=== PATIENT | female | born 1940 | race Caucasian/White ===

== ENCOUNTER 2017-03-04 15:38 | Inpatient (IN) | payer OTHER ==
[~2017-03-04] VITALS: Ht 152.4 cm; Wt 60.5 kg
[~2017-03-04 15:38] MED LIST: ACT/15 PO; AMIT10TA6 PO; AMLO5TAB4 PO; ARC10 PO; ASPEC81 PO; ATV5 PO; BROMFENAC 0.09% OPR; CARV3.12 PO; CLC100 PO; CLX20 PO; FSM70 PO; LISI-725 PO; NMN10 PO; OXYC-57 PO; POTA20TA16 PO; PRED1SUS3 OPR
[2017-03-04] MEDS ORDERED: MoRPHine SULFATE 4 MG/ML 1 ML CARP\\VIAL IV STA ×3 (16:05→19:49)
[2017-03-04] MEDS ORDERED: SODIUM CHLORIDE 0.9% 500ML 500 ML IV STA (16:05)
[2017-03-04] MEDS ORDERED: ONDANSETRON INJ 2 MG/ML 2 ML VIAL IV STA (16:05)
[2017-03-04] MEDS ORDERED: OPTIRAY 320 IV PRN (16:15)
[2017-03-04 16:48] LABS: BASO % 0.5 %; BASO ABS # 0.04 K/uL (0-0.2); COMPLETE YES; EOS % 3.9 %; HEMATOCRIT 30.6 % (37-47); IG% 0.1 %; LYMPH % 11.7 %; MEAN CELL VOLUME 78.5 fL (80-100); MEAN CORPUSCULAR HEMOGLOBIN 23.3 pg (25-34); MEAN CORPUSCULAR HGB CONC 29.7 g/dl (32-36); MEAN PLATELET VOLUME 10.2 fL (7.4-10.4); MONO % 6.4 %; NEUT % 77.4 %; PLATELET COUNT 225 K/uL (130-400); WHITE BLOOD COUNT 7.67 K/uL (4.8-10.8)
[2017-03-04 17:17] LABS: BUN/CREATININE RATIO 16.6 (10-20); CALCIUM 8.1 mg/dl (8.5-10.1); CREATININE 0.51 mg/dl (0.60-1.20); POTASSIUM 4.2 mmol/L (3.5-5.1)
--- NOTE | 2017-03-04 17:42 | DIAGNOSTIC IMAGING REPORT ---
RIGHT HUMERUS MIN 2 VIEWS ROUTINE CLINICAL HISTORY: Right arm pain.. Fall. COMPARISON STUDY: None. FINDINGS: ] Right humeral neck fracture which appears to extend to the greater tuberosity. There is mild medial displacement. No definite dislocation on these limited images. Old, healed right-sided rib fractures. Soft tissue swelling at the level of the shoulder. IMPRESSION: Right humeral neck/head fracture as described above. Electronically signed by: Sonny Sotomayor M.D. 03/04/2017 5:41 PM Dictated Date/Time: 03/04/2017 5:39 PM
[2017-03-04] MEDS ORDERED: MoRPHine SULFATE 2 MG/ML CARP ONE (18:06)
[2017-03-04 18:17] LABS: INR 1.8 (0.9-1.1); PROTHROMBIN TIME (PATIENT) 19.4 SECONDS (9.0-12.0)
--- NOTE | 2017-03-04 19:06 | DIAGNOSTIC IMAGING REPORT ---
HEAD CT NONCONTRAST CT DOSE: 720.95 mGycm HISTORY: fall hit head TECHNIQUE: Multiaxial CT images of the head were performed without the use of intravenous contrast. Automated exposure control was utilized for this study. A dose lowering technique was utilized adhering to the principles of ALARA. Comparison: Head CT 10/29/2011. Findings: The paranasal sinuses and mastoid air cells are clear. The calvarium and skull base are intact. Mild right frontal scalp swelling. 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 There is no mass, hematoma, midline shift, acute infarct. The ventricles are normal in size. Stable calcified meningioma within the left parietal vertex. Impression: No acute intracranial abnormality. Mild right frontal scalp swelling. Electronically signed by: Sonny Sotomayor M.D. 03/04/2017 7:02 PM Dictated Date/Time: 03/04/2017 6:59 PM
--- NOTE | 2017-03-04 19:11 | DIAGNOSTIC IMAGING REPORT ---
CT OF THE CERVICAL SPINE CLINICAL HISTORY: Neck pain status post trauma COMPARISON STUDY: 10/29/2011 CT DOSE: 522.30 mGycm TECHNIQUE: CT scan of the cervical spine was performed from the skull base to the thoracic inlet. Images are reviewed in the axial, sagittal, and coronal planes. IV contrast was not administered for this examination. A dose lowering technique was utilized adhering to the principles of ALARA. FINDINGS: There is a 4.5 cm left-sided thoracic inlet mass with secondary tracheal deviation to the right. This likely represents a thyroid mass. This has enlarged when compared the prior study. This nodule has been previously sampled by FNA. The prevertebral soft tissues are normal. No acute fractures or subluxations are visualized. There is an old C7 deformity. There is mild anterolisthesis of C7 on T1. There are multilevel degenerative changes IMPRESSION: 1. No acute fractures or traumatic subluxations 2. 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 Enlarging 4.5 cm left thyroid nodule Electronically signed by: Mejia Shepherd M.D. 03/04/2017 7:09 PM Dictated Date/Time: 03/04/2017 7:04 PM
--- NOTE | 2017-03-04 19:21 | DIAGNOSTIC IMAGING REPORT ---
CT OF THE CHEST WITH IV CONTRAST CLINICAL HISTORY: Left-sided chest pain status post trauma COMPARISON STUDY: 10/29/2011 TECHNIQUE: Following the IV administration of 93 mL of Optiray-320, CT of the thorax was performed from the thoracic inlet to the lung bases. Images are reviewed in the axial, sagittal, and coronal planes. IV contrast was administered without complication. A dose lowering technique was utilized adhering to the principles of ALARA. CT DOSE: 766.92 mGycm FINDINGS: Thyroid: There is a 4.6 cm left-sided thyroid nodule with secondary mass effect on the trachea. Thoracic aorta: There is mild aortic ectasia. Descending thoracic aorta measures 39 mm. Pulmonary vasculature: The pulmonary trunk is normal in caliber. There are no central filling defects identified to suggest pulmonary embolus. Note that this examination was not protocoled for the evaluation of pulmonary emboli. HEART: The heart is enlarged. There is no significant pericardial effusion. There are postsurgical changes involving the aortic valve and root. There is dense calcification within the mitral valve annulus. There are coronary artery calcifications present. Lungs and pleural spaces: There are small bilateral pleural effusions. There are dependent atelectatic changes. There is no pneumothorax. There is a new solid 4 mm right apical pulmonary nodule as visualized in image #[id number]. Mediastinum: There are mildly enlarged mediastinal lymph nodes measuring up to 12 mm in short axis. These nodes have enlarged when compared the prior 2012 study. Nieves: There is no evidence of pathologic hilar adenopathy. Axilla: There is no evidence of pathologic axillary lymphadenopathy. Upper abdomen: The gallbladder surgically absent. There is mild dilatation of the common bile duct which measures 1 cm. There is a fat-containing 32 mm left adrenal mass, likely representing a myelolipoma. This remains unchanged. Skeletal structures: There is an acute fracture of the right humeral head and neck. There is no dislocation. There are multiple old right-sided rib fractures. There is an old right scapular fracture. IMPRESSION: 1. No evidence of acute intrathoracic injury. 2. New solid 4 mm right apical pulmonary nodule 3. Mildly enlarged mediastinal lymph nodes. These nodes were not enlarged in 2012 4. Fat-containing left adrenal mass. This is consistent with a benign myelolipoma or adenoma 5. Enlarging 4.6 cm left thyroid nodule 6. Acute fracture the right humeral head and neck Electronically signed by: Mejia Shepherd M.D. 03/04/2017 7:20 PM Dictated Date/Time: 03/04/2017 7:11 PM
[2017-03-04] MEDS ORDERED: CITA20TA9 PO (20:24)
--- NOTE | 2017-03-04 20:24 | EMERGENCY ROOM VISIT NOTE ---
History Report prepared by Ab: Jesse Galan Under the Supervision of: Dr. Jarrett Vang D.O. First contact with patient: 15:39 Chief Complaint: FALL Stated Complaint: FALL/ RT SHOULDER PAIN History of Present Illness The patient is a 76 year old female who presents to the Emergency Room with complaints of a fall that occurred 2 hours ago. At this time, the patient was walking on the sidewalk by herself, which she normally does. She got distracted by a puppy and tripped on the side walk, falling on her right side. The fall was witnessed by her neighbor who went to get help for her. She is complaining of right shoulder and right rib pain. Her rib pain is exacerbated with deep breathing. She denies any loss of consciousness, headache, chest pain, shortness of breath, abdominal pain, back pain, fatigue, dizziness, weakness, or numbness. She has a past medical history of Alzheimer's disease that is in the early stages. She is currently on Aspirin and Coumadin. Source of History: patient Onset: 2 hours ago Position: other (global) Symptom Intensity: mild Quality: other (Fall) Timing: resolved Modifying Factors (Worsening): breathing Associated Symptoms: + chest pain (right rib pain, no other chest pain), No LOC, No headache, No SOB, No abdominal pain, No back pain, No fatigue, No weakness, No numbness Note: She has some right shoulder pain. Review of Systems See HPI for pertinent positives & negatives. A total of 10 systems reviewed and were otherwise negative. Past Medical & Surgical Medical Problems: (1) Alzheimers disease (2) HTN (hypertension) (3) Osteoporosis Family History Omitted secondary to patient's age. Social History Smoking Status: Never Smoker Smokeless Tobacco Use: No Drug Use: none Occupation Status: retired Current/Historical Medications Scheduled Alendronate (Fosamax *), 70 MG PO WK Amitriptyline Hcl (Elavil), 10 MG PO DHS Amlodipine Besylate (Norvasc), 5 MG PO DAILY Aspirin Enteric Coated (Ecotrin Or Generic *), 81 MG PO DAILY Carvedilol (Coreg), 3.125 MG PO DAILY Citalopram (Celexa *), 20 MG PO DAILY Docusate Sodium (Colace *), 100 MG PO BID Donepezil Hcl (Aricept *), 10 MG PO DAILY Lisinopril (Zestril), 10 MG PO DAILY Lorazepam (Ativan *), 1 MG PO TID PRN Memantine (Namenda), 10 MG PO BID Pioglitazone Hcl (Actos), 15 MG PO DAILY Potassium Ext Rel (Klor-Con), 20 MEQ PO DAILY Prednisolone Acetate (Ophth) (Pred Forte 1% Oph), 1 DROP OPR BID [Bromday 0.09%], 1 DROP OPR DAILY Scheduled PRN Oxycodone/Acetaminophen 5MG/325MG (Percocet 5MG/325MG), 1 TAB PO Q4H PRN Allergies Coded Allergies: No Known Allergies (Unverified , 03/11/12) Physical Exam Vital Signs Date Time Temp Pulse Resp B/P (MAP) Pulse Ox O2 Delivery O2 Flow Rate FiO2 03/04/17 19:51 95 Nasal Cannula 4.0 03/04/17 19:49 74 14 124/60 88 Room Air 03/04/17 19:49 88 Room Air 03/04/17 18:25 95 Nasal Cannula 4.0 03/04/17 18:20 88 Room Air 03/04/17 17:52 72 16 121/59 92 Room Air 03/04/17 15:47 36.5 79 18 133/62 96 03/04/17 15:47 36.5 79 20 133/62 97 Room Air Physical Exam GENERAL: alert, no distress, non-toxic, sitting up in bed, disheveled HEAD: normal cephalic, hematoma to the right forehead. EYE EXAM: normal conjunctiva, PERRL and EOM's grossly intact OROPHARYNX: no exudate, no erythema, lips, buccal mucosa, and tongue normal and mucous membranes are moist NECK: supple, no nuchal rigidity, no adenopathy, non-tender CHEST: stable to compression anteriorly and posteriorly LUNGS: Coarse breath sounds at the bilateral bases. Normal chest wall mechanics HEART: no murmurs, S1 normal and S2 normal CHEST: Tenderness over the right chest wall. ABDOMEN: abdomen soft, non-tender, normo-active bowel sounds, no masses, no rebound or guarding. PELVIS: stable to compression anteriorly and posteriorly BACK: Back is symmetrical on inspection and there is no deformity, no midline tenderness, no CVA tenderness. UPPER EXTREMITIES: Deformity at the right proximal humerus with bruising. Grasp and abduction of digits and well as flexion and extension of the wrist ROM intact at these areas. Radial pulses 2/4. LOWER EXTREMITIES: full active and passive range of motion of all joints without tenderness to palpation. Abrasion to the right knee. NEURO EXAM: Normal sensorium, cranial nerves II-XII grossly intact, normal speech, no gross weakness of legs. GCS: 15. Medical Decision & Procedures ER Provider Diagnostic Interpretation: Radiology results as stated below per my review and the radiologist's interpretation: RIGHT HUMERUS MIN 2 VIEWS ROUTINE CLINICAL HISTORY: Right arm pain.. Fall. COMPARISON STUDY: None. FINDINGS: ] Right humeral neck fracture which appears to extend to the greater tuberosity. There is mild medial displacement. No definite dislocation on these limited images. Old, healed right-sided rib fractures. Soft tissue swelling at the level of the shoulder. IMPRESSION: Right humeral neck/head fracture as described above. Electronically signed by: Sonny Sotomayor M.D. 03/04/2017 5:41 PM Dictated Date/Time: 03/04/2017 5:[address]AST CT DOSE: 720.95 mGycm HISTORY: fall hit head TECHNIQUE: Multiaxial CT images of the head were performed without the use of intravenous contrast. Automated exposure control was utilized for this study. A dose lowering technique was utilized adhering to the principles of ALARA. Comparison: Head CT 10/29/2011. Findings: The paranasal sinuses and mastoid air cells are clear. The calvarium and skull base are intact. Mild right frontal scalp swelling. 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 There is no mass, hematoma, midline shift, acute infarct. The ventricles are normal in size. Stable calcified meningioma within the left parietal vertex. Impression: No acute intracranial abnormality. Mild right frontal scalp swelling. Electronically signed by: Sonny Sotomayor M.D. 03/04/2017 7:02 PM Dictated Date/Time: 03/04/2017 6:[address] OF THE CHEST WITH IV CONTRAST CLINICAL HISTORY: Left-sided chest pain status post trauma COMPARISON STUDY: 10/29/2011 TECHNIQUE: Following the IV administration of 93 mL of Optiray-320, CT of the thorax was performed from the thoracic inlet to the lung bases. Images are reviewed in the axial, sagittal, and coronal planes. IV contrast was administered without complication. A dose lowering technique was utilized adhering to the principles of ALARA. CT DOSE: 766.92 mGycm FINDINGS: Thyroid: There is a 4.6 cm left-sided thyroid nodule with secondary mass effect on the trachea. Thoracic aorta: There is mild aortic ectasia. Descending thoracic aorta measures 39 mm. Pulmonary vasculature: The pulmonary trunk is normal in caliber. There are no central filling defects identified to suggest pulmonary embolus. Note that this examination was not protocoled for the evaluation of pulmonary emboli. HEART: The heart is enlarged. There is no significant pericardial effusion. There are postsurgical changes involving the aortic valve and root. There is dense calcification within the mitral valve annulus. There are coronary artery calcifications present. Lungs and pleural spaces: There are small bilateral pleural effusions. There are dependent atelectatic changes. There is no pneumothorax. There is a new solid 4 mm right apical pulmonary nodule as visualized in image #[id number]. Mediastinum: There are mildly enlarged mediastinal lymph nodes measuring up to 12 mm in short axis. These nodes have enlarged when compared the prior 2012 study. Nieves: There is no evidence of pathologic hilar adenopathy. Axilla: There is no evidence of pathologic axillary lymphadenopathy. Upper abdomen: The gallbladder surgically absent. There is mild dilatation of the common bile duct which measures 1 cm. There is a fat-containing 32 mm left adrenal mass, likely representing a myelolipoma. This remains unchanged. Skeletal structures: There is an acute fracture of the right humeral head and neck. There is no dislocation. There are multiple old right-sided rib fractures. There is an old right scapular fracture. IMPRESSION: 1. No evidence of acute intrathoracic injury. 2. New solid 4 mm right apical pulmonary nodule 3. Mildly enlarged mediastinal lymph nodes. These nodes were not enlarged in 2012 4. Fat-containing left adrenal mass. This is consistent with a benign myelolipoma or adenoma 5. Enlarging 4.6 cm left thyroid nodule 6. Acute fracture the right humeral head and neck Electronically signed by: Mejia Shepherd M.D. 03/04/2017 7:20 PM Dictated Date/Time: 03/04/2017 7:[address] OF THE CERVICAL SPINE CLINICAL HISTORY: Neck pain status post trauma COMPARISON STUDY: 10/29/2011 CT DOSE: 522.30 mGycm TECHNIQUE: CT scan of the cervical spine was performed from the skull base to the thoracic inlet. Images are reviewed in the axial, sagittal, and coronal planes. IV contrast was not administered for this examination. A dose lowering technique was utilized adhering to the principles of ALARA. FINDINGS: There is a 4.5 cm left-sided thoracic inlet mass with secondary tracheal deviation to the right. This likely represents a thyroid mass. This has enlarged when compared the prior study. This nodule has been previously sampled by FNA. The prevertebral soft tissues are normal. No acute fractures or subluxations are visualized. There is an old C7 deformity. There is mild anterolisthesis of C7 on T1. There are multilevel degenerative changes IMPRESSION: 1. No acute fractures or traumatic subluxations 2. 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 Enlarging 4.5 cm left thyroid nodule Electronically signed by: Mejia Shepherd M.D. 03/04/2017 7:09 PM Dictated Date/Time: 03/04/2017 7:04 PM Laboratory Results 03/04/17 16:30 Red Blood Count 3.90, Mean Corpuscular Volume 78.5, Mean Corpuscular Hemoglobin 23.3, Mean Corpuscular Hemoglobin Concent 29.7, Mean Platelet Volume 10.2, Neutrophils (%) (Auto) 77.4, Lymphocytes (%) (Auto) 11.7, Monocytes (%) (Auto) 6.4, Eosinophils (%) (Auto) 3.9, Basophils (%) (Auto) 0.5, Neutrophils # (Auto) 5.93, Lymphocytes # (Auto) 0.90, Monocytes # (Auto) 0.49, Eosinophils # (Auto) 0.30, Basophils # (Auto) 0.04 03/04/17 16:30 Test 03/04/17 16:20 03/04/17 16:30 Prothrombin Time 19.4 SECONDS (9.0-12.0) Prothromb Time International Ratio 1.8 (0.9-1.1) White Blood Count 7.67 K/uL (4.8-10.8) Red Blood Count 3.90 M/uL (4.2-5.4) Hemoglobin 9.1 g/dL (12.0-16.0) Hematocrit 30.6 % (37-47) Mean Corpuscular Volume 78.5 fL (80-100) Mean Corpuscular Hemoglobin 23.3 pg (25-34) Mean Corpuscular Hemoglobin Concent 29.7 g/dl (32-36) Platelet Count 225 K/uL (130-400) Mean Platelet Volume 10.2 fL (7.4-10.4) Neutrophils (%) (Auto) 77.4 % Lymphocytes (%) (Auto) 11.7 % Monocytes (%) (Auto) 6.4 % Eosinophils (%) (Auto) 3.9 % Basophils (%) (Auto) 0.5 % Neutrophils # (Auto) 5.93 K/uL (1.4-6.5) Lymphocytes # (Auto) 0.90 K/uL (1.2-3.4) Monocytes # (Auto) 0.49 K/uL (0.11-0.59) Eosinophils # (Auto) 0.30 K/uL (0-0.5) Basophils # (Auto) 0.04 K/uL (0-0.2) RDW Standard Deviation 49.9 fL (36.4-46.3) RDW Coefficient of Variation 17.3 % (11.5-14.5) Immature Granulocyte % (Auto) 0.1 % Immature Granulocyte # (Auto) 0.01 K/uL (0.00-0.02) Anion Gap 6.0 mmol/L (3-11) Est Creatinine Clear Calc Drug Dose 73.9 ml/min Estimated GFR () 106.7 Estimated GFR (Non- 92.1 BUN/Creatinine Ratio 16.6 (10-20) Calcium Level 8.1 mg/dl (8.5-10.1) Total Bilirubin 0.3 mg/dl (0.2-1) Direct Bilirubin 0.1 mg/dl (0-0.2) Aspartate Amino Transf (AST/SGOT) 27 U/L (15-37) Alanine Aminotransferase (ALT/SGPT) 28 U/L (12-78) Alkaline Phosphatase 92 U/L (45-117) Total Protein 6.6 gm/dl (6.4-8.2) Albumin 3.1 gm/dl (3.4-5.0) Lipase 123 U/L (73-393) Laboratory results per my review. Medications Administered Medications (Trade) Dose Ordered Sig/Ubaldo Route Start Time Stop Time Status Last Admin Dose Admin Sodium Chloride 500 ml @ 999 mls/hr Q31M STAT IV 03/04/17 16:05 8/14/17 16:35 DC 03/04/17 16:28 999 MLS/HR Morphine Sulfate (MoRPHine SULFATE INJ) 4 mg NOW STAT IV 03/04/17 16:05 03/04/17 16:08 DC 03/04/17 16:29 4 MG Ondansetron HCl (Zofran Inj) 4 mg NOW STAT IV 03/04/17 16:05 03/04/17 16:08 DC 03/04/17 16:29 4 MG Morphine Sulfate (MoRPHine SULFATE INJ) 2 mg STK-MED ONCE .ROUTE 03/04/17 18:06 03/04/17 18:07 DC 03/04/17 18:09 2 MG Morphine Sulfate (MoRPHine SULFATE INJ) 4 mg NOW STAT IV 03/04/17 19:49 03/04/17 19:50 DC 03/04/17 19:56 4 MG ED Course ED COURSE: Vital signs were reviewed and showed nothing abnormal. The patients medical record was reviewed The above diagnostic studies were performed and reviewed. ED treatments and interventions as stated above. 1539: The patient was evaluated in room B11B. A complete history and physical examination was performed. 1605: Ordered Zofran Inj 4 mg IV, Morphine Sulfate 4 mg IV, Sodium Chloride 500 ml @ 999 mls/hr IV 1755: Ordered Morphine Sulfate 2 mg IV 1805: Ordered Morphine Sulfate 2 mg .ROUTE 1948: Ordered Morphine Sulfate 2 mg IV 1953: Upon reevaluation, the patient is resting. I discussed my findings with the patient and she understands and agrees with the treatment plan. Based on the patients age, coexisting illnesses, exam and lab findings the decision to treat as an inpatient was made. The patient remained stable while under my care. The patient will be evaluated by Dr. Eleuterio Pink [facility] Hospitalist, for further management. 1955: I discussed the case with Dr. Tenorio - Orthopedics. Please see the consultation note for more information. Medical Decision Differential diagnoses include major intracranial, cervical, spinal, thoracic, abdominal, pelvic and neurologic injury. Fracture, contusion, sprain, strain, laceration, abrasions included as well. Patient is a 76-year-old female status post mechanical fall onto her right side on Coumadin who presents with right shoulder pain. She has a right proximal humerus fracture which includes the head and neck. CT head and cervical spine was performed and was negative. CT of the chest was unremarkable as well. Patient was hypoxic on room air. She is given several doses of narcotics for pain. Discussed case with orthopedics and internal medicine. Patient was brought in to internal medicine for right humeral head fracture with hypoxia favors likely secondary to narcotics. Patient and family were updated at bedside. [place] Drug Monitoring Program Search Results: patient reviewed within database, no issues identified Head Trauma GCS Score: 15 Medication Reconcilliation Current Medication List: was personally reviewed by me Blood Pressure Screening Patient's blood pressure: Normal blood pressure Blood pressure disposition: Did not require urgent referral Consults Time Called: 1949 Consulting Physician: Dr. Eleuterio Choudhary Hospitalist Returned Call: 1953 I reviewed the patient's case with them. They will evaluate the patient for further management. Additional Consults: Time Called: 1949 Consulted Physician: Dr. Tenorio - Orthopedics Returned Call: 1955 Additional Comments: I discussed the patient's case with them at this time. He will evaluate the patient in the morning and agrees with current management. Impression Primary Impression: Hypoxia Additional Impressions: Fracture of humeral head, right, closed Mediastinal lymphadenopathy Thyroid mass Scribe Attestation The scribe's documentation has been prepared under my direction and personally reviewed by me in its entirety. I confirm that the note above accurately reflects all work, treatment, procedures, and medical decision making performed by me. Departure Information Dispostion Being Evaluated By Hospitalist Referrals Janet Bartholomew M.D. (PCP) Patient Instructions My [facility] Problem Qualifiers Additional Impressions: Fracture of humeral head, right, closed Encounter type: initial encounter Qualified Codes: S42.291A - Other displaced fracture of upper end of right humerus, initial encounter for closed fracture
[2017-03-04] MEDS ORDERED: DONE10TA12 PO (20:26)
[2017-03-04] MEDS ORDERED: CMD25 PO ×2 (20:28→20:30)
[2017-03-04] MEDS ORDERED: ACETAMINOPHEN 325 MG TAB PO PRN (20:30)
[2017-03-04] MEDS ORDERED: ONDANSETRON INJ 2 MG/ML 2 ML VIAL IV PRN (20:30)
[2017-03-04] MEDS ORDERED: LORAZEPAM 1 MG TAB PO PRN (20:30)
[2017-03-04] MEDS ORDERED: FSMD/70 PO (20:31)
[2017-03-04] MEDS ORDERED: MEMA1CAP7 PO (20:34)
[2017-03-04] MEDS ORDERED: ATOR-24 PO (20:35)
[2017-03-04] MEDS ORDERED: CARV3.122 PO (20:36)
[2017-03-04] MEDS ORDERED: CALCTAB7 PO (20:37)
[2017-03-04] MEDS ORDERED: ASPI-428 PO (20:38)
[2017-03-04] MEDS ORDERED: GLC/500 PO (20:39)
[2017-03-04] MEDS ORDERED: INSULIN ASPART 100 UNITS/ML 3 ML PEN SC SCH (21:00)
--- NOTE | 2017-03-04 21:34 | HISTORY & PHYSICAL EXAMINATION ---
DATE OF ADMISSION: 03/04/2017 PRIMARY CARE PHYSICIAN: Dr. Bartholomew CHIEF COMPLAINT: Status post mechanical fall with fracture of the right humerus. 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 Apparently, while going up the street, she was run over by a dog and fell on her right side of the shoulder and fractured her right humerus. She did not have any warning symptoms before the fall. She did not have any fever, chills or rigors. No chest pain, shortness of breath or palpitation. No abdominal pain, nausea or vomiting. No numbness or tingling involving any of the extremities. After the fall, she was brought in by ambulance to the [facility] Emergency Room. At ER, she underwent CT scans of the chest, neck and also head; those are fairly unremarkable, but the x-ray of the humerus did show closed fracture of the right humeral head. She was hemodynamically stable, but she was hypoxic on room air because for her ongoing valvular heart disease with mild failure. From that point, she was admitted to medical floor and orthopedic consultation will be taken as well. PAST MEDICAL HISTORY: Significant for nonalcoholic steatohepatitis, hypertensive heart disease, valvular heart disease, history of TAVR and paroxysmal atrial fibrillation on anticoagulation, hypertension, hyperlipidemia, nontoxic multinodular goiter, diabetes type 2, anxiety and chronic back pain. PAST SURGICAL HISTORY: delivery, gastric bypass for obesity in 2003, appendectomy as a child; cataract surgery, bilateral; cholecystectomy and total abdominal hysterectomy. FAMILY HISTORY: Significant in that mother at the age of 92 from dementia. Father at 55 from heart attack. SOCIAL HISTORY: She is . She lives alone. She has 7 children. She quit smoking in 2006. She does not do any alcohol and she is reasonably ambulant without any cardiac symptoms on regular activities. ALLERGIES: NKDA. MEDICATIONS: As an outpatient she has been on aspirin 81 mg daily, Lipitor 40 mg daily, calcium with vitamin D 1 tablet daily, Coreg 3.125 mg daily, warfarin sodium 2.5 and 5 mg as directed, Fosamax 70 mg every week, Namenda XR 28 mg daily, amitriptyline 10 mg daily, amlodipine 5 mg daily, Celexa 20 mg daily, Colace 100 mg b.i.d., Aricept 10 mg daily, lisinopril 20 mg daily, Ativan 0.5 mg 3 times daily as needed, oxycodone/acetaminophen 5/325 one tablet p.o. q. 4 hourly p.r.n., Actos 15 mg daily, Klor-Con 20 mEq daily, prednisone ophthalmic solution 1 drop OPR b.i.d. and Bromday 0.09% 1 drop daily. REVIEW OF SYSTEMS: All other systems reviewed are unremarkable except those mentioned in history of present complaint. PHYSICAL EXAMINATION: GENERAL: On examination in the Emergency Room, she was not having any acute distress. VITAL SIGNS: Temperature 36.5, pulse 70s blood pressure 124/60, saturation 88% on room air and 95% on 4 liters. HEENT: Unremarkable. NECK: Supple. No JVD, no bruit. CHEST: Decreased breath sounds with minimal crackles at the bases. HEART: S1, S2 with a 2/6 systolic murmur over precordium. ABDOMEN: Soft, benign, nontender, no organomegaly. Bowel sounds present. EXTREMITIES: Negative for any edema. MUSCULOSKELETAL: Did not show any acute arthritis but the right upper extremity was not examined. It was in a sling. CENTRAL NERVOUS SYSTEM: She was alert, awake, oriented x3 and no focal sensory and/or motor deficit appreciated. LABORATORY DATA: Noted today - white count was 7.67, H&H 9.1/30.6, platelet was 225. Sodium 142, potassium 4.2, chloride 108, carbon dioxide 28, BUN 8, creatinine 0.51, random glucose 137, calcium 8.1. LFTs unremarkable. Albumin 3.1. INR is 1.8. IMAGING DATA: EKG is pending. X-ray of the humerus did show right humeral neck/head fracture. Head CT - no acute intracranial abnormality. Mild right frontal scalp swelling. CT of the chest - no refracture. A solid 4 mm right apical pulmonary nodule, mildly enlarged mediastinal lymph nodes, those were not enlarged in 2012, fat containing left adrenal mass and enlarging 4.6 left thyroid nodule. Cervical spine CT - the prevertebral soft tissues normal, no acute fracture or subluxation was visualized. IMPRESSION AND PLAN: 1. Mechanical fall with fracture of the right humerus. The patient will be admitted to medical floor. Orthopedic consultation will be taken. Further management of the humeral fracture as per ortho. There is no contraindication for surgery in case she needs it. 2. Valvular heart disease with congestive heart failure. No acute congestive heart failure at this time. She had an echocardiogram done on January 25 that showed left ventricular cavity size is normal, concentric left ventricular hypertrophy, wall motion normal, ejection fraction was 60-64%, status post percutaneous valve insertion, aortic valve prosthesis stenosis is absent, significant aortic regurgitation is absent, mild mitral regurgitation present. Continue with her current medications. 3. Diabetes type 2, has been on Actos, continue with that. We will put her on a sliding scale while in the hospital. 4. Paroxysmal atrial fibrillation, has been on Coumadin. Rate is controlled. We will continue with Coumadin if there is no proposed surgery. 5. Dementia/memory loss. Continue with Aricept. 6. Anxiety/depression Continue with Celexa. 7. Gastrointestinal prophylaxis with Protonix. 8. Deep venous thrombosis prophylaxis, has been on Coumadin. 9. Code status. Discussed with the patient, she will be a full code. In my clinical assessment, the beneficiary meets criteria as per CMS for 2-midnight stay in the hospital. ANTHONY
[2017-03-04 22:11] VITALS: BP 163/70; PULSE 77; TEMP 36.9; O2SAT 99; Ht 152.4 cm; Wt 60.5 kg
[2017-03-04] MEDS: OXYCODONE/ACETAMINOPHEN 5-325 TAB PO PRN (22:51)
[2017-03-04] MEDS: MEMANTINE 10 MG TAB PO SCH (23:18)
[2017-03-04] MEDS: AMITRIPTYLINE HCL 10 MG TAB PO SCH (23:18)
[2017-03-04] MEDS: PrednisoLONE ACET 1% OP SUSP 5 ML BTL OPR SCH ×2 (23:18→23:22)
[2017-03-04] MEDS: DOCUSATE SODIUM 100 MG CAP PO SCH (23:18)
[2017-03-04 23:20] VITALS: O2SAT 99
[2017-03-05] VITALS (7 sets, daily range): BP systolic 120–139; BP diastolic 61–76; PULSE 63–94; TEMP 36.5–36.9; O2SAT 86–98
[2017-03-05] MEDS ORDERED: NURSING VERBAL MED ORDER ONE ×4 (02:00→23:15)
[2017-03-05] MEDS: OXYCODONE/ACETAMINOPHEN 5-325 TAB PO PRN ×3 (05:50→20:20)
[2017-03-05 05:58] LABS: URINE APPEARANCE CLEAR (CLEAR); URINE BILIRUBIN NEG (NEG); URINE COLOR YELLOW; URINE EPITHELIAL CELL AUTO 20-30 /lpf (0-5); URINE NITRITE NEG (NEG); URINE SPECIFIC GRAVITY > 1.045 (1.000-1.030); UROBILINOGEN NEG (NEG); ZZUR CULT IF INDIC CLEAN CATCH NO
[2017-03-05] MEDS ORDERED: INSULIN ASPART 100 UNITS/ML 3 ML PEN SC SCH (06:00)
[2017-03-05 06:02] LABS: MANUAL MICROSCOPIC REQUIRED? NO; REVIEW REQ? NO
[2017-03-05 07:25] LABS: INR 1.6 (0.9-1.1)
[2017-03-05 07:36] LABS: BUN/CREATININE RATIO 15.9 (10-20); CALCIUM 7.8 mg/dl (8.5-10.1); CREATININE 0.54 mg/dl (0.60-1.20); MAGNESIUM 1.5 mg/dl (1.8-2.4)
[2017-03-05 07:45] LABS: HEMATOCRIT 29.9 % (37-47); MEAN CELL VOLUME 78.7 fL (80-100); MEAN CORPUSCULAR HEMOGLOBIN 22.4 pg (25-34); MEAN CORPUSCULAR HGB CONC 28.4 g/dl (32-36); MEAN PLATELET VOLUME 9.9 fL (7.4-10.4); PLATELET COUNT 218 K/uL (130-400); WHITE BLOOD COUNT 8.67 K/uL (4.8-10.8)
[2017-03-05] MEDS ORDERED: DONEPEZIL HCL 10 MG TAB PO SCH (09:00)
[2017-03-05] MEDS ORDERED: CITALOPRAM 20 MG TAB PO SCH (09:00)
[2017-03-05] MEDS ORDERED: CARVEDILOL 3.125 MG TAB PO SCH (09:00)
[2017-03-05] MEDS: DOCUSATE SODIUM 100 MG CAP PO SCH ×2 (09:28→21:20)
[2017-03-05] MEDS: CITALOPRAM 20 MG TAB PO SCH (09:28)
[2017-03-05] MEDS: ASPIRIN 81 MG ECTAB PO SCH (09:28)
[2017-03-05] MEDS: CARVEDILOL 3.125 MG TAB PO SCH ×2 (09:29→18:50)
[2017-03-05] MEDS: DONEPEZIL HCL 10 MG TAB PO SCH (09:32)
[2017-03-05] MEDS: AMLODIPINE BESYLATE 5 MG TAB PO SCH (09:33)
[2017-03-05] MEDS: PIOGLITAZONE TAB 15 MG TAB PO SCH (09:34)
[2017-03-05] MEDS: LISINOPRIL 20 MG TAB PO SCH (09:35)
[2017-03-05] MEDS: MAGNESIUM SULFATE 1GM / D5W 1 GM in PREMIXED IN D5W 100 ML IV SCH ×3 (09:35→11:49)
[2017-03-05] MEDS: PrednisoLONE ACET 1% OP SUSP 5 ML BTL OPR SCH (09:37)
[2017-03-05] MEDS: POTASSIUM CHLORIDE 20 MEQ TABCR PO SCH (09:38)
--- NOTE | 2017-03-05 10:07 | Clinical Documentation Query ---
QUERY 1 OF [address] GUTIERREZ, In your clinical opinion is this patient being managed for: ( ) Possible Osteoporotic fracture right humerus ( ) Other explanation of clinical findings (Please Explain) ( ) Unable to determine (Please Define) ( ) Need to Discuss ( ) Not Agree The medical record reflects the following clinical findings, treatment, and risk factors. Clinical Indicators: 76 yo female presenting after a ground level fall with a R humeral fracture. Pt has known osteoporosis Treatment: chronic fosamax and caltrate treatments at home, ortho consult Risk Factors: gender, postmenopausal QUERY 2 OF 2 In your clinical opinion is this patient being managed for: ( ) Chronic diastolic CHF in the setting of valvular heart disease ( ) Other explanation of clinical findings (Please Explain) ( ) Unable to determine (Please Define) ( ) Need to Discuss ( ) Not Agree The medical record reflects the following clinical findings, treatment, and risk factors. Clinical Indicators: H/P indicates pt with Valvular heart disease with congestive heart failure. Noted ECHO from January 2017 showed EF of 60-64%. Treatment: norvasc, zestril, coreg, O2 support Risk Factors: age, hypertension, DM, A fib Please clarify and document your clinical opinion in the progress notes and discharge summary. Terms such as "probable", "suspected", "likely", "questionable", "possible", or "still to be ruled out" are acceptable. IF IN AGREEMENT, YOU MUST DOCUMENT ABOVE DIAGNOSTIC STATEMENT IN DAILY PROGRESS NOTES AND DISCHARGE SUMMARY. This document is not part of the patient's record. Thank You, Brittney Sheffield, RN [phone]
--- NOTE | 2017-03-05 10:40 | DIAGNOSTIC IMAGING REPORT ---
RIGHT UPPER EXTREMITY WITHOUT CLINICAL HISTORY: 76 years-old Female presenting with right humeral head neck fracture. TECHNIQUE: Multidetector CT of the right upper extremity was performed without the use of intravenous contrast. IV contrast: None. A dose lowering technique was used consistent with the principles of ALARA (as low as reasonably achievable). COMPARISON: Plain radiographs of the right humerus from 03/04/2017. CT DOSE (mGy.cm): The estimated cumulative dose is 272.63 mGycm. FINDINGS: Metallurgical Lab Technician topogram: Right humeral head neck fracture evident. Comminuted displaced fracture of the right humeral head at the anatomic neck and extending into the surgical neck. The humeral head articular surface at the glenoid is preserved. The greater tuberosity is by approximately 2 cm from the distal fracture fragment. Comminution at the lesser tuberosity noted. The distal fracture fragment is impacted onto the humeral head with 1 cm of foreshortening. [place] medial angulation at the fracture site also present. No apparent fracture of the scapula including the osseous glenoid. Limited evaluation of regional soft tissues within normal limits. No large fluid collection or hematoma is evident. Bandlike opacity in the right upper lobe likely atelectasis. IMPRESSION: Comminuted fracture of the surgical and anatomic necks of the right humerus. The greater tuberosity is significantly displaced from the distal fracture fragment secondary to angulation and impaction further detailed above. Electronically signed by: Luis Andres M.D. 03/05/2017 10:38 AM Dictated Date/Time: 03/05/2017 10:30 AM
[2017-03-05] MEDS: MEMANTINE 10 MG TAB PO SCH ×2 (10:44→21:23)
[2017-03-05] MEDS: INSULIN ASPART 100 UNITS/ML 3 ML PEN SC SCH ×3 (11:48→21:25)
--- NOTE | 2017-03-05 12:58 | CONSULTATION REPORT ---
DATE OF CONSULTATION: 03/05/2017 REASON FOR CONSULT: Right proximal humerus fracture. HISTORY OF PRESENT ILLNESS: The patient is a 76-year-old white female who states that she was outside and went to go pet a dog that was in her yard. She turned sideways to stoop down to pet the dog, lost her balance and fell onto her right shoulder. She had immediate pain in the right shoulder and had difficulty using the shoulder for range of motion. She was taken to the [facility] ED where she was seen by the staff. X-rays were taken and it was found that she had a right proximal humerus fracture. She was found to be hypoxic on room air because of ongoing valvular heart disease with valve failure and she was admitted under the [facility]. We have been asked to see her for her right proximal humerus fracture. PAST MEDICAL HISTORY: Nonalcoholic steatohepatitis, hypertensive heart disease, valvular heart disease, history of TAVR and paroxysmal atrial fibrillation, on chronic Coumadin therapy, hypertension, hyperlipidemia, nontoxic multinodular goiter, diabetes mellitus type 2, anxiety and chronic back pain. PAST SURGICAL HISTORY: in the past, gastric bypass in 2003, appendectomy, cataract surgery, cholecystectomy and total abdominal hysterectomy. FAMILY AND SOCIAL HISTORY: As per admitting history and physical. MEDICATIONS: Fosamax 70 mg p.o. weekly, amitriptyline 10 mg p.o. DHS, amlodipine 10 mg p.o. daily, aspirin 81 mg p.o. daily, atorvastatin 40 mg p.o. daily, calcium carbonate with vitamin D 1 tab p.o. daily, and carvedilol 3.125 mg p.o. daily, it is also listed as p.o. b.i.d. M. Citalopram 20 mg p.o. daily, Colace 100 mg p.o. b.i.d., Aricept 10 mg p.o. daily, lisinopril 10 mg p.o. daily, Ativan 1 mg p.o. t.i.d. p.r.n., Namenda XR 28 mg p.o. daily, metformin 500 mg p.o. b.i.d., Percocet 5/325 one tab p.o. q. 4 hours p.r.n., Actos 15 mg p.o. daily, Klor-Con 20 mEq p.o. daily, prednisolone ophthalmic 1 drop OPR b.i.d., warfarin 2.5 mg tablet 5 mg 2 times a week on Wednesdays and Saturdays, 2.5 mg Saturday, Saturday, Saturday, , Saturday and 0.09% one drop OPR daily. ALLERGIES: NKDA. REVIEW OF SYSTEMS: As per admitting history and physical. PHYSICAL EXAMINATION: GENERAL: The patient is an elderly white female, mildly obese, who appears her stated age. She is pleasant and cooperative and in no acute distress. EXTREMITIES: On examination of her right upper extremity, she has a sling on, which is left on during exam. Examination of her right hand proves to have good capillary refill less than 2 seconds and no decreased sensation in any of her fingers or hand. She has good range of motion of all of her fingers and has good range of motion of her wrist. With flexion and extension, she has some pain radiating down from the shoulder to the elbow. The elbow is nontender on palpation. She has moderate ecchymosis and swelling of the upper portion of the arm between the elbow and the shoulder. She is mildly tender on palpation over the ecchymotic area over the biceps, which translates down from the shoulder all the way down almost to the elbow with her ecchymosis. She has swelling around the shoulder and is mildly tender on palpation. No attempts to move the right shoulder with range of motion are performed at this time. Left upper extremity is essentially benign and she denies any left shoulder, elbow or wrist pain. She denies neck pain on palpation and has good range of motion. She denies current thoracic or lumbar back pain post fall. Lower extremities are benign at this time and have good range of motion and are nontender throughout. There is no gross motor or sensory deficit seen at this time. Distal pulses are equal bilaterally. ASSESSMENT: Proximal right humerus fracture. X-RAY REVIEW: CT ordered this morning shows a comminuted fracture of the surgical and anatomic necks of the right humerus. Greater tuberosity is significantly displaced and there is impaction as well of the head. PLAN: The patient was discussed with Dr. Syed who will review the CT scan and plan accordingly. The patient is medically stable for surgery per medicine service. Depending on Dr. Syed's plans, she will either be nonsurgical with arm in a sling for 4-6 weeks versus surgical repair that could include ORIF versus hemiarthroplasty. We will await his input at this time.
[2017-03-05] MEDS ORDERED: WARFARIN SOD 2.5 MG TAB PO SCH (16:00)
[2017-03-05 16:37] LABS: HEMATOCRIT 30.1 % (37-47)
--- NOTE | 2017-03-05 19:23 | Progress Note ---
Progress Note Date of Service Mar 05, 2017. Progress Note 76 yo female scheduled for right total shoulder arthroscopy after traumatic fall on 03/04/17. Pt has complicated PMH including hx of CHF, afib, PE, TIA, pulmonary HTN, s/p TAVR, asymptomatic carotid stenosis, NIDDM, alzheimer's disease anxiety and migraines. Most recent EKG shows afib with LBBB and appears to be a change from prior EKG on record. Patient is uncertain if she has a history of afib, but Medicine admit note includes mention of afib. Medicine admit note states patient had an echo done in January, but I was unable to find a copy of this record. At this time, with possible new EKG changes, we need a copy of the patient's most recent cardiac studies to ensure cardiac status is appropriate for the scheduled surgery, especially considering sitting position for shoulder procedure. To facilitate this, the patient signed a medical records release that was sent to HIM this evening requesting all available cardiac records, especially echo from the patient's current medical imaging technologist. Any assistance possible from the medicine team with acquiring these records would be greatly appreciated in order to facilitate tomorrow's scheduled surgery. Of note, patient is off anticoagulants and INR today is 1.6 and Hgb is 8.5. Please repeat INR and Hgb tomorrow morning and ensure type and screen is available. Antonia Black MD, PhD Anesthesiologist
--- NOTE | 2017-03-05 19:58 | Progress Note ---
Medicine Progress Note Date & Time of Visit: Mar 05, 2017 at 19:37. Subjective Pt was seen and examined Lying in bed comfortable with no distress Pt said that she feels Ok she denies any chest pain, palpitation, dizziness and sob Objective Last 8 Hrs Date Time Temp Pulse Resp B/P (MAP) Pulse Ox O2 Delivery O2 Flow Rate FiO2 03/05/17 15:40 36.6 71 16 122/61 (81) 90 Room Air 03/05/17 15:15 Room Air Physical Exam: General- No acute distress Head- atraumatic Eyes- PERRL, EOMI ENT- oropharynx clear Neck- supple, no JVD Lungs- Decrease breath sound Heart- +systolic murmur Abdomen- normal bowel sounds, soft Extremities- no calf tenderness, right arm with sling Neuro- alert, oriented x 3; PERRL, EOMI; no facial palsy Skin- warm & dry Laboratory Results: Last 24 Hours Test 03/04/17 23:10 03/05/17 05:20 03/05/17 05:28 03/05/17 06:52 Bedside Glucose 177 mg/dl 133 mg/dl Urine Color YELLOW Urine Appearance CLEAR Urine pH 6.0 Urine Specific [place] > 1.045 Urine Protein NEG Urine Glucose (UA) NEG Urine Ketones NEG Urine Occult Blood NEG Urine Nitrite NEG Urine Bilirubin NEG Urine Urobilinogen NEG Urine Leukocyte Esterase NEG Urine WBC (Auto) 1-5 /hpf Urine RBC (Auto) 0-4 /hpf Urine Hyaline Casts (Auto) 1-5 /lpf Urine Epithelial Cells (Auto) 20-30 /lpf Urine Bacteria (Auto) NEG White Blood Count 8.67 K/uL Red Blood Count 3.80 M/uL Hemoglobin 8.5 g/dL Hematocrit 29.9 % Mean Corpuscular Volume 78.7 fL Mean Corpuscular Hemoglobin 22.4 pg Mean Corpuscular Hemoglobin Concent 28.4 g/dl RDW Standard Deviation 49.6 fL RDW Coefficient of Variation 17.3 % Platelet Count 218 K/uL Mean Platelet Volume 9.9 fL Prothrombin Time 18.0 SECONDS Prothromb Time International Ratio 1.6 Sodium Level 141 mmol/L Potassium Level 4.0 mmol/L Chloride Level 106 mmol/L Carbon Dioxide Level 29 mmol/L Anion Gap 6.0 mmol/L Blood Urea Nitrogen 9 mg/dl Creatinine 0.54 mg/dl Est Creatinine Clear Calc Drug Dose 69.8 ml/min Estimated GFR () 104.8 Estimated GFR (Non- 90.4 BUN/Creatinine Ratio 15.9 Random Glucose 125 mg/dl Calcium Level 7.8 mg/dl Magnesium Level 1.5 mg/dl Test 03/05/17 11:20 03/05/17 15:46 03/05/17 17:11 Bedside Glucose 133 mg/dl 114 mg/dl Hemoglobin 8.7 g/dL Hematocrit 30.1 % Assessment & Plan Right humerus fracture s/p mechanical fall CT of RUE showed comminuted fracture of the surgical and anatomic necks of the right humerus. The greater tuberosity is significantly displaced from the distal fracture fragment secondary to angulation and impaction. Ortho on board Will go for surgery tomorrow daughter said that pt was very active before the fall, was doing her own grocery had a functional capacity with a METS greater than a 4 before her injury denies any chest pain, palpitation and SOB Recent Echo done on 02/04 showed no wall motion abnormality Medically stable to proceed with surgery Valvular heart disease with congestive heart failure. Asymptomatic Continue current meds ECHO on 01/25/17 showed Interpretation Summary The examination is adequate to evaluate the referral indication. The left ventricular cavity size is normal. The LV wall thickness is moderately increased (concentric). The left ventricular wall motion is normal. The qualitative LV ejection fraction is 60-64% (normal). The patient is status post percutneous valve (CoreValve) insertion Aortic valve prosthesis stenosis is absent. Significant aortic valve prosthesis regurgitation is absent. There is moderate posterior mitral annular calcification. Mild mitral regurgitation is present. Mild tricuspid regurgitation is present. Diabetes type 2, Hold Actos for tentative surgery Will put on sliding scale Paroxysmal atrial fibrillation Rate is controlled Hold coumadin check INR in am . Dementia/memory loss. Continue with Aricept. Anxiety/depression Continue with Celexa. Deep venous thrombosis prophylaxis INR 1.7 Coumadin on hold Code status full code. Consultants: Ortho Current Inpatient Medications: Current Inpatient Medications Medications (Trade) Dose Ordered Sig/Ubaldo Route Start Time Stop Time Status Last Admin Dose Admin Ioversol (Optiray 320) 111 ml UD PRN IV 03/04/17 16:15 03/08/17 16:14 Acetaminophen (Tylenol Tab) 650 mg Q4H PRN PO 03/04/17 20:30 04/03/17 20:29 Ondansetron HCl (Zofran Inj) 4 mg Q6H PRN IV 03/04/17 20:30 04/03/17 20:29 Amitriptyline HCl (Elavil Tab) 10 mg HS PO 03/04/17 21:00 04/03/17 20:59 03/04/17 23:18 10 MG Amlodipine Besylate (Norvasc Tab) 10 mg DAILY PO 03/05/17 09:00 04/04/17 08:59 03/05/17 09:33 10 MG Citalopram Hydrobromide (celeXA TAB) 20 mg DAILY PO 03/05/17 09:00 04/04/17 08:59 03/05/17 09:28 20 MG Docusate Sodium (coLACE CAP) 100 mg BID PO 03/04/17 21:00 04/03/17 20:59 03/05/17 09:28 100 MG Donepezil HCl (Aricept Tab) 10 mg DAILY PO 03/05/17 09:00 04/04/17 08:59 03/05/17 09:32 10 MG Lisinopril (Zestril Tab) 10 mg DAILY PO 03/05/17 09:00 04/04/17 08:59 03/05/17 09:35 10 MG Lorazepam (Ativan Tab) 1 mg TID PRN PO 03/04/17 20:30 04/03/17 20:29 Memantine (Namenda Tab) 10 mg BID PO 03/04/17 21:00 04/03/17 20:59 03/05/17 10:44 10 MG Oxycodone/ Acetaminophen (Percocet 5-325mg Tab) 1 tab Q4H PRN PO 03/04/17 20:30 03/18/17 20:29 03/05/17 11:51 1 TAB Pioglitazone HCl (ACTos TAB) 15 mg DAILY PO 03/05/17 09:00 04/04/17 08:59 03/05/17 09:34 15 MG Potassium Chloride (Klor-Con Tab) 20 meq DAILY PO 03/05/17 09:00 04/04/17 08:59 Aspirin (Ecotrin Tab) 81 mg DAILY PO 03/05/17 09:00 04/04/17 08:59 03/05/17 09:28 81 MG Carvedilol (Coreg Tab) 3.125 mg BIDM PO 03/05/17 08:00 04/04/17 07:59 03/05/17 18:50 3.125 MG Warfarin Sodium (Coumadin Tab) 2.5 mg SuMoTuThFr@1600 PO 03/05/17 16:00 04/04/17 15:59 Future Hold Warfarin Sodium (Coumadin Tab) 5 mg WeSa@1600 PO 03/06/17 16:00 04/05/17 15:59 Miscellaneous Information (Order Awaiting Action) 1 ea QS N/A 03/05/17 08:00 04/04/17 07:59 Insulin Aspart (novoLOG ASPART) SLIDING SCALE G... ACHS SC 03/05/17 12:00 04/04/17 11:59 03/05/17 18:52 1 UNITS
[2017-03-05] MEDS: AMITRIPTYLINE HCL 10 MG TAB PO SCH (21:21)
[2017-03-06] VITALS (7 sets, daily range): BP systolic 111–152; BP diastolic 66–74; PULSE 79–90; TEMP 36.3–37.3; O2SAT 92–96
[2017-03-06] MEDS: OXYCODONE/ACETAMINOPHEN 5-325 TAB PO PRN ×2 (05:26→11:22)
[2017-03-06 05:47] LABS: HEMATOCRIT 28.1 % (37-47); MEAN CELL VOLUME 78.1 fL (80-100); MEAN CORPUSCULAR HEMOGLOBIN 23.3 pg (25-34); MEAN CORPUSCULAR HGB CONC 29.9 g/dl (32-36); MEAN PLATELET VOLUME 9.8 fL (7.4-10.4); PLATELET COUNT 213 K/uL (130-400); WHITE BLOOD COUNT 7.13 K/uL (4.8-10.8)
[2017-03-06] MEDS: INSULIN ASPART 100 UNITS/ML 3 ML PEN SC SCH ×5 (05:55→21:27)
[2017-03-06 06:07] LABS: INR 1.5 (0.9-1.1); PROTHROMBIN TIME (PATIENT) 16.2 SECONDS (9.0-12.0)
[2017-03-06 06:21] LABS: BUN/CREATININE RATIO 16.1 (10-20); CREATININE 0.49 mg/dl (0.60-1.20); POTASSIUM 4.4 mmol/L (3.5-5.1)
[2017-03-06] MEDS ORDERED: ROPIVACAINE 0.5% 5 MG/ML 30 ML VIAL ONE (06:31)
[2017-03-06] MEDS: POTASSIUM CHLORIDE 20 MEQ TABCR PO SCH (09:00)
[2017-03-06] MEDS: PIOGLITAZONE TAB 15 MG TAB PO SCH (09:00)
[2017-03-06] MEDS: ASPIRIN 81 MG ECTAB PO SCH (09:00)
[2017-03-06] MEDS: AMLODIPINE BESYLATE 5 MG TAB PO SCH (09:04)
[2017-03-06] MEDS: DONEPEZIL HCL 10 MG TAB PO SCH (09:04)
[2017-03-06] MEDS: DOCUSATE SODIUM 100 MG CAP PO SCH ×3 (09:04→21:20)
[2017-03-06] MEDS: MEMANTINE 10 MG TAB PO SCH ×2 (09:05→21:19)
[2017-03-06] MEDS: LISINOPRIL 20 MG TAB PO SCH (09:05)
[2017-03-06] MEDS: CARVEDILOL 3.125 MG TAB PO SCH ×2 (09:06→19:47)
[2017-03-06] MEDS: CITALOPRAM 20 MG TAB PO SCH (09:09)
[2017-03-06] MEDS ORDERED: BACITRACIN 50000 UNIT VIAL ONE (11:44)
[2017-03-06] MEDS ORDERED: ORTHO JOINT ANESTHETIC ONE (11:45)
[2017-03-06] MEDS ORDERED: EpINEphrine HCL INJ 1 MG/ML 5ML SYRINGE ONE (11:45)
[2017-03-06] MEDS ORDERED: NURSING VERBAL MED ORDER ONE ×2 (12:30→20:15)
[2017-03-06] MEDS ORDERED: CEFAZOLIN IV 2,000 MG/60 ML D5W IV ONE (14:21)
[2017-03-06] MEDS ORDERED: NEOSTIGMINE METHYLSULFATE 5 MG/5 ML SYR ONE (14:24)
[2017-03-06] MEDS ORDERED: ROCURONIUM BROMIDE 10 MG/ML 5 ML VIAL ONE ×2 (14:24→17:21)
[2017-03-06] MEDS ORDERED: PROPOFOL IV EMULSION 10 MG/ML 20 ML VIAL IV ONE (14:24)
[2017-03-06] MEDS ORDERED: FENTANYL CITRATE INJ 50 MCG/1 ML 2 ML VIAL ONE (14:24)
[2017-03-06] MEDS ORDERED: MIDAZOLAM HCL 1 MG/ML 2ML VIAL ONE (14:24)
[2017-03-06] MEDS ORDERED: LIDOCAINE HCL 2% 2 ML VIAL (20MG/ML) ONE (14:24)
[2017-03-06] MEDS ORDERED: ONDANSETRON INJ 2 MG/ML 2 ML VIAL ONE (14:24)
[2017-03-06] MEDS ORDERED: DEXAMETHASONE SOD INJ 4 MG/ML VIAL ONE (14:24)
[2017-03-06] MEDS ORDERED: GLYCOPYRROLATE INJ 0.2 MG/ML VIAL ONE (14:24)
--- NOTE | 2017-03-06 14:41 | History & Physical Bridge Note ---
H&P Re-Evaluation Bridge Note: I have examined the patient, reviewed the History & Physical and in the interval since the performance of the History & Physical I have noted the following changes of clinical significance: No changes noted
[2017-03-06] MEDS ORDERED: WARFARIN SOD 5 MG TAB PO SCH (16:00)
[2017-03-06] MEDS ORDERED: ETOMIDATE 2 MG/ML 20 ML VIAL IV ONE (17:21)
[2017-03-06] MEDS ORDERED: EpHEDrine SULFATE 50MG/5ML SYR ONE (17:21)
--- NOTE | 2017-03-06 17:47 | Progress Note ---
Medicine Progress Note Date & Time of Visit: Mar 06, 2017 at 17:43. Subjective Pt was seen and examined Lying in bed with no distress ready to get surgery done today denies any chest pain, palpitation, dizziness and SOB Objective Last 8 Hrs Date Time Temp Pulse Resp B/P (MAP) Pulse Ox O2 Delivery O2 Flow Rate FiO2 03/06/17 10:03 96 Nasal Cannula 2.0 Physical Exam: General- No acute distress Head- atraumatic Eyes- PERRL, EOMI ENT- oropharynx clear Neck- supple, no JVD Lungs- Decrease breath sound Heart- +systolic murmur Abdomen- normal bowel sounds, soft Extremities- no calf tenderness, right arm with sling Neuro- alert, oriented x 3; PERRL, EOMI; no facial palsy Skin- warm & dry Laboratory Results: Last 24 Hours Test 03/05/17 20:58 03/06/17 00:55 03/06/17 05:15 03/06/17 05:54 Bedside Glucose 148 mg/dl 125 mg/dl 112 mg/dl White Blood Count 7.13 K/uL Red Blood Count 3.60 M/uL Hemoglobin 8.4 g/dL Hematocrit 28.1 % Mean Corpuscular Volume 78.1 fL Mean Corpuscular Hemoglobin 23.3 pg Mean Corpuscular Hemoglobin Concent 29.9 g/dl RDW Standard Deviation 48.7 fL RDW Coefficient of Variation 17.1 % Platelet Count 213 K/uL Mean Platelet Volume 9.8 fL Prothrombin Time 16.2 SECONDS Prothromb Time International Ratio 1.5 Sodium Level 141 mmol/L Potassium Level 4.4 mmol/L Chloride Level 108 mmol/L Carbon Dioxide Level 30 mmol/L Anion Gap 3.0 mmol/L Blood Urea Nitrogen 8 mg/dl Creatinine 0.49 mg/dl Est Creatinine Clear Calc Drug Dose 76.9 ml/min Estimated GFR () 108.2 Estimated GFR (Non- 93.3 BUN/Creatinine Ratio 16.1 Random Glucose 109 mg/dl Calcium Level 8.0 mg/dl Test 03/06/17 11:50 Bedside Glucose 118 mg/dl Assessment & Plan Right humerus fracture s/p mechanical fall CT of RUE showed comminuted fracture of the surgical and anatomic necks of the right humerus. The greater tuberosity is significantly displaced from the distal fracture fragment secondary to angulation and impaction. Ortho on board Will go for surgery tomorrow daughter said that pt was very active before the fall, was doing her own grocery had a functional capacity with a METS greater than a 4 before her injury denies any chest pain, palpitation and SOB Recent Echo done on 02/04 showed no wall motion abnormality Medically stable to proceed with surgery Valvular heart disease with congestive heart failure. Asymptomatic Continue current meds ECHO on 01/25/17 showed Interpretation Summary The examination is adequate to evaluate the referral indication. The left ventricular cavity size is normal. The LV wall thickness is moderately increased (concentric). The left ventricular wall motion is normal. The qualitative LV ejection fraction is 60-64% (normal). The patient is status post percutneous valve (CoreValve) insertion Aortic valve prosthesis stenosis is absent. Significant aortic valve prosthesis regurgitation is absent. There is moderate posterior mitral annular calcification. Mild mitral regurgitation is present. Mild tricuspid regurgitation is present. Diabetes type 2, Hold Actos for tentative surgery Will put on sliding scale Paroxysmal atrial fibrillation Rate is controlled Hold coumadin check INR in am . Dementia/memory loss. Continue with Aricept. Right Lung mass Need outpatient follow up Thyroid mass Outpatient follow Anxiety/depression Continue with Celexa. Deep venous thrombosis prophylaxis INR 1.5 Coumadin on hold Code status full code. Consultants: Ortho Current Inpatient Medications: Current Inpatient Medications Medications (Trade) Dose Ordered Sig/Ubaldo Route Start Time Stop Time Status Last Admin Dose Admin Ioversol (Optiray 320) 111 ml UD PRN IV 03/04/17 16:15 03/08/17 16:14 Acetaminophen (Tylenol Tab) 650 mg Q4H PRN PO 03/04/17 20:30 04/03/17 20:29 Ondansetron HCl (Zofran Inj) 4 mg Q6H PRN IV 03/04/17 20:30 04/03/17 20:29 Amitriptyline HCl (Elavil Tab) 10 mg HS PO 03/04/17 21:00 04/03/17 20:59 03/05/17 21:21 10 MG Amlodipine Besylate (Norvasc Tab) 10 mg DAILY PO 03/05/17 09:00 04/04/17 08:59 03/06/17 09:04 10 MG Citalopram Hydrobromide (celeXA TAB) 20 mg DAILY PO 03/05/17 09:00 04/04/17 08:59 03/06/17 09:09 20 MG Docusate Sodium (coLACE CAP) 100 mg BID PO 03/04/17 21:00 04/03/17 20:59 03/06/17 09:04 100 MG Donepezil HCl (Aricept Tab) 10 mg DAILY PO 03/05/17 09:00 04/04/17 08:59 03/06/17 09:04 10 MG Lisinopril (Zestril Tab) 10 mg DAILY PO 03/05/17 09:00 04/04/17 08:59 03/06/17 09:05 10 MG Lorazepam (Ativan Tab) 1 mg TID PRN PO 03/04/17 20:30 04/03/17 20:29 Memantine (Namenda Tab) 10 mg BID PO 03/04/17 21:00 04/03/17 20:59 03/06/17 09:05 10 MG Oxycodone/ Acetaminophen (Percocet 5-325mg Tab) 1 tab Q4H PRN PO 03/04/17 20:30 03/18/17 20:29 03/06/17 11:22 1 TAB Aspirin (Ecotrin Tab) 81 mg DAILY PO 03/05/17 09:00 04/04/17 08:59 03/05/17 09:28 81 MG Carvedilol (Coreg Tab) 3.125 mg BIDM PO 03/05/17 08:00 04/04/17 07:59 03/06/17 09:06 3.125 MG Warfarin Sodium (Coumadin Tab) 2.5 mg SuMoTuThFr@1600 PO 03/05/17 16:00 04/04/17 15:59 Future Hold Warfarin Sodium (Coumadin Tab) 5 mg WeSa@1600 PO 03/06/17 16:00 04/05/17 15:59 Future hold Miscellaneous Information (Order Awaiting Action) 1 ea QS N/A 03/05/17 08:00 04/04/17 07:59 Insulin Aspart (novoLOG ASPART) SLIDING SCALE G... Q6 SC 03/06/17 00:00 04/05/17 00:00
--- NOTE | 2017-03-06 18:04 | [facility] Post Operative Brief Note ---
Immediate Operative Summary Operative Date Mar 06, 2017. Pre-Operative Diagnosis Right proximal humeral fracture Post-Operative Diagnosis Same Procedure(s) Performed Right Reverse Total shoulder arthroplasty,biceps tenodesis and repair and bone grafting tuberosities Surgeon Dr Syed Technical Publications Writer Surgeon(s) Lucho HILLMAN Estimated Blood Loss 200ml Findings osteoporotic comminuted displaced proximal humerus fracture,biceps tendinopathy chronic Fluids (cc crystalloids) one unit PRBC Specimens A. right humeral head Drains 2 hemovac Anesthesia [facility] Complication(s) None Disposition Recovery Room / PACU
[2017-03-06] MEDS ORDERED: MoRPHine SULFATE 2 MG/ML CARP IV PRN (18:15)
[2017-03-06] MEDS ORDERED: MAGNESIUM HYDROXIDE SUSP 30 ML UDC PO PRN (18:15)
[2017-03-06] MEDS ORDERED: BISACODYL 10 MG SUPP PR PRN (18:15)
[2017-03-06] MEDS ORDERED: OXYCODONE HCL IR 5 MG TAB (IMMEDIATE RELEASE) PO PRN (18:30)
[2017-03-06] MEDS ORDERED: ATROPINE SULFATE 0.1 MG/ML 5ML SYR IV PRN (18:30)
[2017-03-06] MEDS ORDERED: NALOXONE HCL 0.4 MG/1 ML VIAL/CARP IV PRN (18:30)
[2017-03-06] MEDS ORDERED: ONDANSETRON INJ 2 MG/ML 2 ML VIAL IV PRN (18:30)
[2017-03-06] MEDS ORDERED: LABETALOL HCL IV 5 MG/ML 20ML IV PRN (18:30)
[2017-03-06] MEDS ORDERED: EpHEDrine SULFATE INJ 50 MG/ML AMP IV PRN (18:30)
[2017-03-06] MEDS ORDERED: FLUMAZENIL 0.1 MG/1 ML 10 ML VIAL IV PRN (18:30)
[2017-03-06] MEDS ORDERED: PROMETHAZINE HCL INJ 12.5 MG in SODIUM CHLORIDE 0.9% 50ML 50 ML IV PRN (18:30)
[2017-03-06 18:46] LABS: HEMATOCRIT 30.6 % (37-47)
--- NOTE | 2017-03-06 18:46 | DIAGNOSTIC IMAGING REPORT ---
RIGHT SHOULDER MIN 2 VIEWS ROUTINE CLINICAL HISTORY: Post shoulder surgery Right COMPARISON STUDY: Right humerus 03/04/2017. FINDINGS: Interval reverse right total shoulder arthroplasty. The hardware is intact. No acute fracture or dislocation. Skin jeanette and surgical drains are in place. Old, healed right-sided rib fractures. Old distal right clavicle fracture. IMPRESSION: Status post reverse right total shoulder arthroplasty. No evidence for hardware complication. Electronically signed by: Sonny Sotomayor M.D. 03/06/2017 6:44 PM Dictated Date/Time: 03/06/2017 6:43 PM
--- NOTE | 2017-03-06 18:54 | Anesthesiology Progress Note ---
Anesthesia Post Op Note Date & Time Mar 06, 2017 at 18:54 Vital Signs Pain Intensity: 0 Vital Signs Past 12 Hours Date Time Temp Pulse Resp B/P (MAP) Pulse Ox O2 Delivery O2 Flow Rate FiO2 03/06/17 18:45 130/59 03/06/17 18:41 103 18 93 03/06/17 18:41 104 18 03/06/17 18:40 134/60 03/06/17 18:36 105 18 93 03/06/17 18:36 103 18 03/06/17 18:35 130/57 03/06/17 18:31 105 23 95 03/06/17 18:31 100 23 03/06/17 18:30 125/66 03/06/17 18:29 106 27 03/06/17 18:29 107 27 95 03/06/17 18:25 127/75 03/06/17 18:24 28 03/06/17 18:24 110 28 90 03/06/17 18:20 126/59 03/06/17 18:19 116 31 95 03/06/17 18:19 108 31 03/06/17 18:15 140/63 03/06/17 18:14 101 19 127/75 95 03/06/17 18:14 110 19 03/06/17 18:14 36.5 100 20 127/75 95 Mask 10 03/06/17 10:03 96 Nasal Cannula 2.0 03/06/17 08:35 Room Air 03/06/17 08:11 37.1 79 20 152/74 (100) 96 Nasal Cannula 2.0 Notes Mental Status: alert / awake / arousable, participated in evaluation Pt Amnestic to Procedure: Yes Nausea / Vomiting: adequately controlled Pain: adequately controlled Airway Patency, RR, SpO2: stable & adequate BP & HR: stable & adequate Hydration State: stable & adequate Anesthetic Complications: no major complications apparent
[2017-03-06] MEDS: AMITRIPTYLINE HCL 10 MG TAB PO SCH (21:20)
[2017-03-06] MEDS: ACETAMINOPHEN 500 MG TAB PO SCH (21:49)
[2017-03-06] MEDS: CEFAZOLIN IV 1,000 MG in DEXTROSE 5% 50ML 50 ML IV SCH (21:49)
[2017-03-07] VITALS (7 sets, daily range): BP systolic 120–147; BP diastolic 56–80; PULSE 68–97; TEMP 36.5–37.2; O2SAT 83–99
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
[2017-03-07] MEDS: CEFAZOLIN IV 1,000 MG in DEXTROSE 5% 50ML 50 ML IV SCH (05:49)
[2017-03-07] MEDS: ACETAMINOPHEN 500 MG TAB PO SCH (05:50)
[2017-03-07] MEDS ORDERED: HYDROmorphone INJ 0.5 MG/0.5 ML SYR ONE (06:30)
[2017-03-07] MEDS ORDERED: ACETAMINOPHEN 325 MG TAB PO PRN (06:30)
[2017-03-07] MEDS ORDERED: HYDROmorphone INJ 0.5 MG/0.5 ML SYR IV PRN (06:30)
[2017-03-07 07:11] LABS: HEMATOCRIT 27.1 % (37-47); MEAN CELL VOLUME 77.9 fL (80-100); MEAN CORPUSCULAR HEMOGLOBIN 24.7 pg (25-34); MEAN CORPUSCULAR HGB CONC 31.7 g/dl (32-36); PLATELET COUNT 193 K/uL (130-400); RED BLOOD COUNT 3.48 M/uL (4.2-5.4); WHITE BLOOD COUNT 10.54 K/uL (4.8-10.8)
[2017-03-07 07:18] LABS: INR 1.2 (0.9-1.1); PROTHROMBIN TIME (PATIENT) 13.4 SECONDS (9.0-12.0)
[2017-03-07 07:49] LABS: BUN/CREATININE RATIO 17.6 (10-20); CALCIUM 7.8 mg/dl (8.5-10.1); CREATININE 0.5 mg/dl (0.60-1.20); POTASSIUM 4.5 mmol/L (3.5-5.1)
[2017-03-07] MEDS ORDERED: NURSING VERBAL MED ORDER ONE (08:45)
[2017-03-07] MEDS: DOCUSATE SODIUM 100 MG CAP PO SCH ×4 (08:50→21:08)
[2017-03-07] MEDS: CARVEDILOL 3.125 MG TAB PO SCH ×2 (08:54→18:05)
[2017-03-07] MEDS: DONEPEZIL HCL 10 MG TAB PO SCH (08:55)
[2017-03-07] MEDS: CITALOPRAM 20 MG TAB PO SCH (08:55)
[2017-03-07] MEDS: ASPIRIN 81 MG ECTAB PO SCH (08:56)
[2017-03-07] MEDS: MEMANTINE 10 MG TAB PO SCH ×2 (08:57→21:08)
[2017-03-07] MEDS: AMLODIPINE BESYLATE 5 MG TAB PO SCH (08:57)
[2017-03-07] MEDS: LISINOPRIL 20 MG TAB PO SCH (08:59)
[2017-03-07] MEDS: OXYCODONE/ACETAMINOPHEN 5-325 TAB PO PRN (09:15)
[2017-03-07] MEDS: INSULIN ASPART 100 UNITS/ML 3 ML PEN SC SCH ×4 (09:29→21:10)
--- NOTE | 2017-03-07 09:55 | Progress Note ---
Orthopedic SOAP Note Subjective Date of Service: Mar 07, 2017. Additional Notes: some pain today slightly drowsy Problem List Medical Problems: (1) Fracture of humeral head, right, closed Status: Acute (2) Hypoxia Status: Acute (3) Mediastinal lymphadenopathy Status: Acute (4) Thyroid mass Status: Acute Objective N/V intact, dressing C/D/I, incision C/D/I sling in place Date Time Temp Pulse Resp B/P (MAP) Pulse Ox O2 Delivery O2 Flow Rate FiO2 03/07/17 07:38 96 Nasal Cannula 2.0 03/07/17 07:38 36.9 80 14 140/80 (100) 96 Nasal Cannula 2.0 03/07/17 03:39 36.8 86 16 147/56 (86) 95 Nasal Cannula 2.0 03/06/17 23:30 Nasal Cannula 2.0 Humidified Air 03/06/17 22:38 37.3 81 18 119/66 (83) 96 Nasal Cannula 3.0 Humidified Oxygen 03/06/17 21:39 37.3 81 18 119/66 (83) 96 Nasal Cannula 4.0 Humidified Oxygen 03/06/17 20:40 37.1 90 16 128/66 (86) 95 Humidified Oxygen 4.0 03/06/17 20:40 36.3 88 18 125/71 (89) 93 Nasal Cannula Humidified Oxygen 03/06/17 20:36 92 Nasal Cannula 4.0 Humidified Oxygen 03/06/17 19:40 Oxymask 4.0 03/06/17 19:40 36.7 88 18 111/66 (81) 92 Oxymask 4.0 03/06/17 19:26 87 19 94 03/06/17 19:26 88 19 03/06/17 19:25 115/51 03/06/17 19:21 81 28 93 03/06/17 19:21 92 28 03/06/17 19:20 109/58 03/06/17 19:16 82 15 94 03/06/17 19:16 91 15 03/06/17 19:15 107/56 03/06/17 19:11 86 22 03/06/17 19:11 92 22 94 03/06/17 19:10 108/53 03/06/17 19:07 94 18 94 03/06/17 19:07 88 18 03/06/17 19:05 121/53 03/06/17 19:04 36.8 03/06/17 19:02 103 22 94 03/06/17 19:02 104 22 03/06/17 19:01 96 24 03/06/17 19:01 95 24 94 03/06/17 19:00 114/55 03/06/17 18:56 95 24 94 03/06/17 18:56 95 24 03/06/17 18:55 124/55 03/06/17 18:51 98 18 94 03/06/17 18:51 101 18 03/06/17 18:50 127/68 03/06/17 18:46 97 23 93 03/06/17 18:46 99 23 03/06/17 18:45 130/59 03/06/17 18:41 103 18 93 03/06/17 18:41 104 18 03/06/17 18:40 134/60 03/06/17 18:36 105 18 93 03/06/17 18:36 103 18 03/06/17 18:35 130/57 03/06/17 18:31 105 23 95 03/06/17 18:31 100 23 03/06/17 18:30 125/66 03/06/17 18:29 106 27 03/06/17 18:29 107 27 95 03/06/17 18:25 127/75 03/06/17 18:24 28 03/06/17 18:24 110 28 90 03/06/17 18:20 126/59 03/06/17 18:19 116 31 95 03/06/17 18:19 108 31 03/06/17 18:15 140/63 03/06/17 18:14 101 19 127/75 95 03/06/17 18:14 110 19 03/06/17 18:14 36.5 100 20 127/75 95 Mask 10 03/06/17 10:03 96 Nasal Cannula 2.0 Laboratory Results 24 Hours: Test 03/06/17 18:39 03/07/17 06:45 Hematocrit 30.6 % 27.1 % Hemoglobin 9.5 g/dL 8.6 g/dL Prothromb Time International Ratio 1.2 Prothrombin Time 13.4 SECONDS Assessment s/p reversed tsa for fracture Plan ot/pt per reversed tsa protocol limited pt for 6 weeks to allow tuberosity healing ,patient can do exercises at home.plan d/c home with daughter when stable.
--- NOTE | 2017-03-07 10:21 | Anesthesiology Progress Note ---
Anesthesia Post Op Note Date & Time Mar 07, 2017 at 10:21 Vital Signs Pain Intensity: 9.0 Vital Signs Past 12 Hours Date Time Temp Pulse Resp B/P (MAP) Pulse Ox O2 Delivery O2 Flow Rate FiO2 03/07/17 07:38 96 Nasal Cannula 2.0 03/07/17 07:38 36.9 80 14 140/80 (100) 96 Nasal Cannula 2.0 03/07/17 03:39 36.8 86 16 147/56 (86) 95 Nasal Cannula 2.0 03/06/17 23:30 Nasal Cannula 2.0 Humidified Air 03/06/17 22:38 37.3 81 18 119/66 (83) 96 Nasal Cannula 3.0 Humidified Oxygen Notes Mental Status: alert / awake / arousable, participated in evaluation Pt Amnestic to Procedure: Yes Nausea / Vomiting: adequately controlled Pain: adequately controlled Airway Patency, RR, SpO2: stable & adequate BP & HR: stable & adequate Hydration State: stable & adequate Anesthetic Complications: no major complications apparent
--- NOTE | 2017-03-07 12:19 | Consultant Recommendations ---
Senior Software Engineering Manager Recommendations Date of Service Mar 07, 2017. Senior Software Engineering Manager Recommendations ACTIVITY RECOMMENDATIONS: PT/OT per reversed tsa protocol; limited PT for 6 weeks to allow tuberosity healing ,patient can do exercises at home.plan d/c home with daughter when stable. SELF CARE INSTRUCTIONS AFTER TOTAL SHOULDER ARTHROPLASTY REVERSE A. You may do daily exercises as taught in physical therapy while in hospital. No lifting with the operative arm. B. You are to wear your sling/immobilizer at all times EXCEPT when performing your daily exercises and for hygiene purposes. C. You may perform dry, daily dressing changes. Please keep your incision covered. You may shower 48 hours after surgery. Do not apply soap or any ointment/ lotions directly over incision. Do not soak incision in bath tub/swimming pool. D. You may use ice as needed to operative shoulder. SPECIAL CARE INSTRUCTIONS: VERY IMPORTANT TO READ AND REVIEW A. There are a few signs you need to watch for after you are home. Call [facility] at [phone] if you experience any of the followin. Increased severe shoulder pain. Some pain is expected especially when you exercise. 2. Increased swelling in you shoulder or arm; pain or swelling in either upper extremity. 3. Any fluid drainage from the incision. 4. Shortness of breath or chest pain. B. Please call [facility] at [phone] if you have any questions or concerns about your operation or recovery. C. Call your physician if: 1. Temperature is greater than 101 degrees (F). 2. Pain is not relieved by prescribed pain medications. 3. Increase drainage or redness from incision. 4. Unanswered questions or concerns. FOLLOW UP VISIT: Please call [facility] at [phone] to schedule a follow up appointment with Dr. Syed or his PA in 12-14 days from your surgery date.
--- NOTE | 2017-03-07 20:10 | Progress Note ---
Medicine Progress Note Date & Time of Visit: Mar 07, 2017 at 20:04. Subjective Pt was seen and examined Sitting in chair with no distress feels a little nauseated complaint of right shoulder tenderness denies any chest pain, palpitation, dizziness and SOB Objective Last 8 Hrs Date Time Temp Pulse Resp B/P (MAP) Pulse Ox O2 Delivery O2 Flow Rate FiO2 03/07/17 15:38 Nasal Cannula 2.0 03/07/17 15:00 36.5 80 16 129/72 (91) 99 Nasal Cannula 2.0 03/07/17 12:21 36.6 72 16 120/60 (80) 98 Nasal Cannula 2.0 Physical Exam: General- No acute distress Head- atraumatic Eyes- PERRL, EOMI ENT- oropharynx clear Neck- supple, no JVD Lungs- Decrease breath sound Heart- +systolic murmur Abdomen- normal bowel sounds, soft Extremities- no calf tenderness, right arm with sling Neuro- alert, oriented x 3; PERRL, EOMI; no facial palsy Skin- warm & dry Laboratory Results: Last 24 Hours Test 03/06/17 21:24 03/07/17 06:45 03/07/17 08:01 03/07/17 11:41 Bedside Glucose 203 mg/dl 145 mg/dl 182 mg/dl White Blood Count 10.54 K/uL Red Blood Count 3.48 M/uL Hemoglobin 8.6 g/dL Hematocrit 27.1 % Mean Corpuscular Volume 77.9 fL Mean Corpuscular Hemoglobin 24.7 pg Mean Corpuscular Hemoglobin Concent 31.7 g/dl RDW Standard Deviation 49.0 fL RDW Coefficient of Variation 17.1 % Platelet Count 193 K/uL Mean Platelet Volume 10.0 fL Prothrombin Time 13.4 SECONDS Prothromb Time International Ratio 1.2 Sodium Level 138 mmol/L Potassium Level 4.5 mmol/L Chloride Level 106 mmol/L Carbon Dioxide Level 26 mmol/L Anion Gap 6.0 mmol/L Blood Urea Nitrogen 9 mg/dl Creatinine 0.50 mg/dl Est Creatinine Clear Calc Drug Dose 75.4 ml/min Estimated GFR () 107.4 Estimated GFR (Non- 92.7 BUN/Creatinine Ratio 17.6 Random Glucose 140 mg/dl Calcium Level 7.8 mg/dl Test 03/07/17 16:53 Bedside Glucose 153 mg/dl Assessment & Plan Right humerus fracture s/p mechanical fall CT of RUE showed comminuted fracture of the surgical and anatomic necks of the right humerus. The greater tuberosity is significantly displaced from the distal fracture fragment secondary to angulation and impaction. Ortho on board Will go for surgery tomorrow daughter said that pt was very active before the fall, was doing her own grocery had a functional capacity with a METS greater than a 4 before her injury denies any chest pain, palpitation and SOB Recent Echo done on 02/04 showed no wall motion abnormality Medically stable to proceed with surgery 03/07 s/p reversed tsa for fracture day#1 continue pain control PT/OT Ortho recommended PT/OT per reversed tsa protocol; limited PT for 6 weeks to allow tuberosity healing ,patient can do exercises at home Valvular heart disease with congestive heart failure. Asymptomatic Continue current meds ECHO on 01/25/17 showed Interpretation Summary The examination is adequate to evaluate the referral indication. The left ventricular cavity size is normal. The LV wall thickness is moderately increased (concentric). The left ventricular wall motion is normal. The qualitative LV ejection fraction is 60-64% (normal). The patient is status post percutneous valve (CoreValve) insertion Aortic valve prosthesis stenosis is absent. Significant aortic valve prosthesis regurgitation is absent. There is moderate posterior mitral annular calcification. Mild mitral regurgitation is present. Mild tricuspid regurgitation is present. Diabetes type 2, Hold Actos for tentative surgery Will put on sliding scale Paroxysmal atrial fibrillation Rate is controlled will resume coumadin check INR in am . Dementia/memory loss. Continue with Aricept. Right Lung mass Need outpatient follow up Thyroid mass Outpatient follow Anxiety/depression Continue with Celexa. Deep venous thrombosis prophylaxis will resume coumadin Code status full code. Disposition Will discharge once stable by ortho Consultants: Ortho Procedures: s/p reversed tsa for fracture Current Inpatient Medications: Current Inpatient Medications Medications (Trade) Dose Ordered Sig/Ubaldo Route Start Time Stop Time Status Last Admin Dose Admin Ioversol (Optiray 320) 111 ml UD PRN IV 03/04/17 16:15 03/08/17 16:14 Ondansetron HCl (Zofran Inj) 4 mg Q6H PRN IV 03/04/17 20:30 04/03/17 20:29 03/07/17 18:12 4 MG Amitriptyline HCl (Elavil Tab) 10 mg HS PO 03/04/17 21:00 04/03/17 20:59 03/06/17 21:20 10 MG Amlodipine Besylate (Norvasc Tab) 10 mg DAILY PO 03/05/17 09:00 04/04/17 08:59 03/07/17 08:57 10 MG Citalopram Hydrobromide (celeXA TAB) 20 mg DAILY PO 03/05/17 09:00 04/04/17 08:59 03/07/17 08:55 20 MG Docusate Sodium (coLACE CAP) 100 mg BID PO 03/04/17 21:00 04/03/17 20:59 03/07/17 08:56 100 MG Donepezil HCl (Aricept Tab) 10 mg DAILY PO 03/05/17 09:00 04/04/17 08:59 03/07/17 08:55 10 MG Lisinopril (Zestril Tab) 10 mg DAILY PO 03/05/17 09:00 04/04/17 08:59 03/07/17 08:59 10 MG Lorazepam (Ativan Tab) 1 mg TID PRN PO 03/04/17 20:30 04/03/17 20:29 03/07/17 03:48 1 MG Memantine (Namenda Tab) 10 mg BID PO 03/04/17 21:00 04/03/17 20:59 03/07/17 08:57 10 MG Aspirin (Ecotrin Tab) 81 mg DAILY PO 03/05/17 09:00 04/04/17 08:59 03/07/17 08:56 81 MG Carvedilol (Coreg Tab) 3.125 mg BIDM PO 03/05/17 08:00 04/04/17 07:59 03/07/17 18:05 3.125 MG Warfarin Sodium (Coumadin Tab) 2.5 mg SuMoTuThFr@1600 PO 03/05/17 16:00 04/04/17 15:59 Future Hold Warfarin Sodium (Coumadin Tab) 5 mg WeSa@1600 PO 03/06/17 16:00 04/05/17 15:59 Future hold Miscellaneous Information (Order Awaiting Action) 1 ea QS N/A 03/05/17 08:00 04/04/17 07:59 Magnesium Hydroxide (Milk Of Magnesia Susp) 30 ml Q6H PRN PO 03/06/17 18:15 04/05/17 18:14 Bisacodyl (Dulcolax Supp) 10 mg DAILY PRN MO 03/06/17 18:15 04/05/17 18:14 Docusate Sodium (coLACE CAP) 100 mg BID PO 03/06/17 21:00 04/05/17 20:59 Morphine Sulfate (MoRPHine SULFATE INJ) 2 mg Q4HWA PRN IV 03/06/17 18:15 03/20/17 18:14 03/07/17 03:26 2 MG Insulin Aspart (novoLOG ASPART) SLIDING SCALE G... ACHS SC 03/06/17 21:00 04/05/17 20:59 03/07/17 18:07 1 UNITS Hydromorphone HCl (Dilaudid Inj) 0.5 mg Q3H PRN IV 03/07/17 06:30 03/21/17 06:29 Oxycodone/ Acetaminophen (Percocet 5-325mg Tab) pain not relieved by tylenol Q6H PRN PO 03/07/17 06:30 03/21/17 06:29 03/07/17 09:15 2 TAB Acetaminophen (Tylenol Tab) 650 mg Q6H PRN PO 03/07/17 06:30 04/06/17 06:29
[2017-03-07] MEDS ORDERED: ONDANSETRON INJ 2 MG/ML 2 ML VIAL IV PRN (20:15)
[2017-03-07] MEDS: AMITRIPTYLINE HCL 10 MG TAB PO SCH (21:08)
[2017-03-08 06:27] LABS: HEMATOCRIT 30.7 % (37-47); MEAN CELL VOLUME 78.9 fL (80-100); MEAN CORPUSCULAR HEMOGLOBIN 23.7 pg (25-34); MEAN PLATELET VOLUME 9.9 fL (7.4-10.4); PLATELET COUNT 225 K/uL (130-400); RED BLOOD COUNT 3.89 M/uL (4.2-5.4); WHITE BLOOD COUNT 11.99 K/uL (4.8-10.8)
[2017-03-08 06:33] LABS: INR 1.2 (0.9-1.1); PROTHROMBIN TIME (PATIENT) 12.5 SECONDS (9.0-12.0)
[2017-03-08 07:00] LABS: BUN/CREATININE RATIO 17.4 (10-20); CALCIUM 8.6 mg/dl (8.5-10.1); CREATININE 0.41 mg/dl (0.60-1.20); POTASSIUM 4.1 mmol/L (3.5-5.1)
[2017-03-08 07:01] VITALS: BP 149/70; PULSE 74; TEMP 37.2; O2SAT 92
[2017-03-08] MEDS: DOCUSATE SODIUM 100 MG CAP PO SCH ×2 (09:00→09:02)
[2017-03-08] MEDS: ASPIRIN 81 MG ECTAB PO SCH (09:03)
[2017-03-08] MEDS: CITALOPRAM 20 MG TAB PO SCH (09:03)
[2017-03-08] MEDS: DONEPEZIL HCL 10 MG TAB PO SCH (09:03)
[2017-03-08] MEDS: AMLODIPINE BESYLATE 5 MG TAB PO SCH (09:03)
[2017-03-08] MEDS: CARVEDILOL 3.125 MG TAB PO SCH ×2 (09:03→18:31)
[2017-03-08] MEDS: LISINOPRIL 20 MG TAB PO SCH (09:04)
[2017-03-08] MEDS: MEMANTINE 10 MG TAB PO SCH (09:04)
[2017-03-08] MEDS: INSULIN ASPART 100 UNITS/ML 3 ML PEN SC SCH ×3 (09:09→17:15)
[2017-03-08] MEDS ORDERED: NURSING VERBAL MED ORDER ONE (09:30)
--- NOTE | 2017-03-08 09:51 | Orthopedic Progress Note ---
Orthopedic Progress Note Date of Service Mar 08, 2017. Subjective Post OP Day: 2 Reports: feeling well, Denies: complaints Objective dressing C/D/I, A&O x3, CMS intact Moving fingers/hand/wrist well. No decreased sensation. Date Time Temp Pulse Resp B/P (MAP) Pulse Ox O2 Delivery O2 Flow Rate FiO2 03/08/17 07:01 37.2 74 18 149/70 (96) 92 Nasal Cannula 1.0 03/07/17 23:47 92 Nasal Cannula 1.0 03/07/17 23:37 Nasal Cannula 1.0 03/07/17 23:30 37.2 97 18 146/64 (91) 83 Room Air 03/07/17 15:38 Nasal Cannula 2.0 03/07/17 15:00 36.5 80 16 129/72 (91) 99 Nasal Cannula 2.0 03/07/17 12:21 36.6 72 16 120/60 (80) 98 Nasal Cannula 2.0 03/07/17 11:04 68 99 Laboratory Results 24 Hours: Test 03/08/17 06:11 Hematocrit 30.7 % Hemoglobin 9.2 g/dL Prothromb Time International Ratio 1.2 Prothrombin Time 12.5 SECONDS Assessment & Plan Assessment: s/p reversed tsa for fracture POD 2 Plan: Ok per Ortho for DC. Instructions placed in EMR. F/U with Dr Syed in 10-14 days. No PT for shoulder for up to 6 weeks. Will sign off for now. Call with any questions. Inhouse Planning Pain Management: Percocet, Morphine DVT Prophylaxis: TEDs, SCDs, Coumadin
[2017-03-08 15:05] VITALS: BP 128/66; PULSE 77; TEMP 37; O2SAT 93
[2017-03-08] MEDS ORDERED: WARFARIN SOD 2.5 MG TAB PO ONE (17:00)
--- NOTE | 2017-03-08 17:08 | Progress Note ---
Medicine Progress Note Date & Time of Visit: Mar 08, 2017 at 17:00. Subjective Pt was seen and examined Sitting in the chair comfortable with daughter at bedside Pt said that she feels fine she denies any shoulder pain she was walking today with PT with no discomfort She does not want to go to rehab denies any chest pain, palpitation, dizziness and SOB Objective Last 8 Hrs Date Time Temp Pulse Resp B/P (MAP) Pulse Ox O2 Delivery O2 Flow Rate FiO2 03/08/17 15:05 37.0 77 18 128/66 (86) 93 Room Air Physical Exam: General- No acute distress Head- atraumatic Eyes- PERRL, EOMI ENT- oropharynx clear Neck- supple, no JVD Lungs- Decrease breath sound Heart- +systolic murmur Abdomen- normal bowel sounds, soft Extremities- no calf tenderness, right arm with sling Neuro- alert, oriented x 3; PERRL, EOMI; no facial palsy Skin- warm & dry Laboratory Results: Last 24 Hours Test 03/07/17 20:48 03/08/17 06:11 03/08/17 08:07 03/08/17 12:08 Bedside Glucose 191 mg/dl 144 mg/dl 152 mg/dl White Blood Count 11.99 K/uL Red Blood Count 3.89 M/uL Hemoglobin 9.2 g/dL Hematocrit 30.7 % Mean Corpuscular Volume 78.9 fL Mean Corpuscular Hemoglobin 23.7 pg Mean Corpuscular Hemoglobin Concent 30.0 g/dl RDW Standard Deviation 49.6 fL RDW Coefficient of Variation 17.4 % Platelet Count 225 K/uL Mean Platelet Volume 9.9 fL Prothrombin Time 12.5 SECONDS Prothromb Time International Ratio 1.2 Sodium Level 135 mmol/L Potassium Level 4.1 mmol/L Chloride Level 101 mmol/L Carbon Dioxide Level 27 mmol/L Anion Gap 7.0 mmol/L Blood Urea Nitrogen 7 mg/dl Creatinine 0.41 mg/dl Est Creatinine Clear Calc Drug Dose 91.9 ml/min Estimated GFR () 114.7 Estimated GFR (Non- 99.0 BUN/Creatinine Ratio 17.4 Random Glucose 151 mg/dl Calcium Level 8.6 mg/dl Assessment & Plan Right humerus fracture s/p mechanical fall CT of RUE showed comminuted fracture of the surgical and anatomic necks of the right humerus. The greater tuberosity is significantly displaced from the distal fracture fragment secondary to angulation and impaction. Ortho on board Will go for surgery tomorrow daughter said that pt was very active before the fall, was doing her own grocery had a functional capacity with a METS greater than a 4 before her injury denies any chest pain, palpitation and SOB Recent Echo done on 02/04 showed no wall motion abnormality Medically stable to proceed with surgery 03/08 s/p reversed tsa for fracture day#2 continue pain control F/U with Dr Syed in 10-14 days. No PT for shoulder for up to 6 weeks follow up with PCP on 03/13 @ 12:45 Valvular heart disease with congestive heart failure. Asymptomatic Continue current meds ECHO on 01/25/17 showed Interpretation Summary The examination is adequate to evaluate the referral indication. The left ventricular cavity size is normal. The LV wall thickness is moderately increased (concentric). The left ventricular wall motion is normal. The qualitative LV ejection fraction is 60-64% (normal). The patient is status post percutneous valve (CoreValve) insertion Aortic valve prosthesis stenosis is absent. Significant aortic valve prosthesis regurgitation is absent. There is moderate posterior mitral annular calcification. Mild mitral regurgitation is present. Mild tricuspid regurgitation is present. Diabetes type 2, Hold Actos for tentative surgery Will put on sliding scale Paroxysmal atrial fibrillation Rate is controlled Coumadin 5 mg given today Check INR on Saturday Continue follow up with the coag clinic Dementia/memory loss. Continue with Aricept. Right Lung mass Need outpatient follow up Thyroid mass Outpatient follow Anxiety/depression Continue with Celexa. Deep venous thrombosis prophylaxis Coumadin resume Code status full code. Disposition Discharge home today with home services Consultants: Ortho Procedures: s/p reversed tsa for fracture Current Inpatient Medications: Current Inpatient Medications Medications (Trade) Dose Ordered Sig/Ubaldo Route Start Time Stop Time Status Last Admin Dose Admin Ondansetron HCl (Zofran Inj) 4 mg Q6H PRN IV 03/04/17 20:30 04/03/17 20:29 03/07/17 18:12 4 MG Amitriptyline HCl (Elavil Tab) 10 mg HS PO 03/04/17 21:00 04/03/17 20:59 03/07/17 21:08 10 MG Amlodipine Besylate (Norvasc Tab) 10 mg DAILY PO 03/05/17 09:00 04/04/17 08:59 03/08/17 09:03 10 MG Citalopram Hydrobromide (celeXA TAB) 20 mg DAILY PO 03/05/17 09:00 04/04/17 08:59 03/08/17 09:03 20 MG Docusate Sodium (coLACE CAP) 100 mg BID PO 03/04/17 21:00 04/03/17 20:59 03/08/17 09:02 100 MG Donepezil HCl (Aricept Tab) 10 mg DAILY PO 03/05/17 09:00 04/04/17 08:59 03/08/17 09:03 10 MG Lisinopril (Zestril Tab) 10 mg DAILY PO 03/05/17 09:00 04/04/17 08:59 03/08/17 09:04 10 MG Lorazepam (Ativan Tab) 1 mg TID PRN PO 03/04/17 20:30 04/03/17 20:29 03/07/17 03:48 1 MG Memantine (Namenda Tab) 10 mg BID PO 03/04/17 21:00 04/03/17 20:59 03/08/17 09:04 10 MG Aspirin (Ecotrin Tab) 81 mg DAILY PO 03/05/17 09:00 04/04/17 08:59 03/08/17 09:03 81 MG Carvedilol (Coreg Tab) 3.125 mg BIDM PO 03/05/17 08:00 04/04/17 07:59 03/08/17 09:03 3.125 MG Warfarin Sodium (Coumadin Tab) 2.5 mg SuMoTuThFr@1600 PO 03/05/17 16:00 04/04/17 15:59 Future hold 03/08/17 16:13 2.5 MG Warfarin Sodium (Coumadin Tab) 5 mg WeSa@1600 PO 03/06/17 16:00 04/05/17 15:59 Future hold Miscellaneous Information (Order Awaiting Action) 1 ea QS N/A 03/05/17 08:00 04/04/17 07:59 Magnesium Hydroxide (Milk Of Magnesia Susp) 30 ml Q6H PRN PO 03/06/17 18:15 04/05/17 18:14 03/08/17 09:25 30 ML Bisacodyl (Dulcolax Supp) 10 mg DAILY PRN OR 03/06/17 18:15 04/05/17 18:14 Morphine Sulfate (MoRPHine SULFATE INJ) 2 mg Q4HWA PRN IV 03/06/17 18:15 03/20/17 18:14 03/07/17 03:26 2 MG Insulin Aspart (novoLOG ASPART) SLIDING SCALE G... ACHS SC 03/06/17 21:00 04/05/17 20:59 03/08/17 12:58 2 UNITS Hydromorphone HCl (Dilaudid Inj) 0.5 mg Q3H PRN IV 03/07/17 06:30 03/21/17 06:29 Oxycodone/ Acetaminophen (Percocet 5-325mg Tab) pain not relieved by tylenol Q6H PRN PO 03/07/17 06:30 03/21/17 06:29 03/07/17 09:15 2 TAB Acetaminophen (Tylenol Tab) 650 mg Q6H PRN PO 03/07/17 06:30 04/06/17 06:29
[2017-03-08] MEDS ORDERED: TRAM-10 PO (17:20)
--- NOTE | 2017-03-08 17:36 | Discharge Instructions ---
Discharge Instructions Date of Service Mar 08, 2017. Admission Reason for Admission: Closed Rt Humeral Fx, Vavlular Heart Disease Discharge Discharge Diagnosis / Problem: Right humeral fracture, Paroxysmal aFib , lung mass, Thyroid mass Discharge Goals Goal(s): Decrease discomfort, Improve function, Increase independence, Improve disease control Activity Recommendations Activity Limitations: resume your previous activity (as tolerated) . Instructions / Follow-Up Instructions / Follow-Up Discharge home with home services Follow up with your primary care provider Dr. Bartholomew on 03/13 @ 12:45 Please call [facility] at [phone] to schedule a follow up appointment with Dr. Syed or his PA in 12-14 days from your surgery date. No physical therapy for shoulder for up to 6 weeks Please follow orthopedic recommendation for the right shoulder Follow up with the Coumadin clinic Check INR on Saturday Current Hospital Diet Patient's current hospital diet: AHA Diet (Heart Healthy), Diabetes Type 2 Diet Discharge Diet Recommended Diet: AHA Diet (Heart Healthy), Diabetes Type 2 Diet Procedures Procedures Performed: Right Reverse Total shoulder arthroplasty,biceps tenodesis and repair and bone grafting tuberosities Pending Studies Studies pending at discharge: no Medical Emergencies . Who to Call and When: Medical Emergencies: If at any time you feel your situation is an emergency, please call 911 immediately. . Non-Emergent Contact Non-Emergency issues call your: Primary Care Provider Call Non-Emergent contact if: you have a fever, your pain is not controlled, wound has increased drainage, wound has increased redness, wound has increased pain, you have any medication questions . . "Provider Documentation" section prepared by Marbella Khan. . Vision Teacher Recommendations Vision Teacher Recommendations: ACTIVITY RECOMMENDATIONS: PT/OT per reversed tsa protocol; limited PT for 6 weeks to allow tuberosity healing ,patient can do exercises at home.plan d/c home with daughter when stable. SELF CARE INSTRUCTIONS AFTER TOTAL SHOULDER ARTHROPLASTY REVERSE A. You may do daily exercises as taught in physical therapy while in hospital. No lifting with the operative arm. B. You are to wear your sling/immobilizer at all times EXCEPT when performing your daily exercises and for hygiene purposes. C. You may perform dry, daily dressing changes. Please keep your incision covered. You may shower 48 hours after surgery. Do not apply soap or any ointment/ lotions directly over incision. Do not soak incision in bath tub/swimming pool. D. You may use ice as needed to operative shoulder. SPECIAL CARE INSTRUCTIONS: VERY IMPORTANT TO READ AND REVIEW A. There are a few signs you need to watch for after you are home. Call [facility] at [phone] if you experience any of the followin. Increased severe shoulder pain. Some pain is expected especially when you exercise. 2. Increased swelling in you shoulder or arm; pain or swelling in either upper extremity. 3. Any fluid drainage from the incision. 4. Shortness of breath or chest pain. B. Please call [facility] at [phone] if you have any questions or concerns about your operation or recovery. C. Call your physician if: 1. Temperature is greater than 101 degrees (F). 2. Pain is not relieved by prescribed pain medications. 3. Increase drainage or redness from incision. 4. Unanswered questions or concerns. FOLLOW UP VISIT: Please call [facility] at [phone] to schedule a follow up appointment with Dr. Syed or his PA in 12-14 days from your surgery date. VTE Core Measure Inpt VTE Proph given/why not?: Warfarin (Coumadin) [place] Drug Monitoring Program Search Results: no issues identified
[2017-03-08 17:46] VITALS: BP 128/66; PULSE 77; TEMP 37; O2SAT 93
[2017-03-08] MEDS: OXYCODONE/ACETAMINOPHEN 5-325 TAB PO PRN (18:56)
--- NOTE | 2017-03-18 09:50 | Discharge Summary ---
Discharge Summary Date of Service Mar 18, 2017. Discharge Summary Admission Date: Mar 04, 2017 at 20:28 Discharge Date: Mar 08, 2017 Discharge Disposition: Home with services Principal Diagnosis: Right humeral fracture Secondary Diagnoses/Problems: Paroxysmal aFib lung mass Thyroid mass Anxiety/depression Valvular heart disease with congestive heart failure. Dementia/memory loss Procedures: s/p reversed tsa for fracture Consultations: Ortho Medication Reconciliation Continued Medications: Alendronate/Cholecalciferol (Fosamax+D 70MG/2800 Iu) 70 Mg Tab 70 MG PO WK, TAB EVERY SATURDAY Amitriptyline Hcl (Elavil) 10 Mg Tab 10 MG PO DHS, 0 Refills Amlodipine Besylate (Norvasc) 5 Mg Tab 10 MG PO DAILY 2 TABLET DOSE Atorvastatin (Lipitor) 40 Mg Tab 40 MG PO DAILY, TAB Carvedilol (Coreg) 3.125 Mg Tab 3.125 MG PO BIDM, TAB Citalopram Hydrobromide (Celexa) 20 Mg Tab 20 MG PO DAILY, TAB Donepezil Hydrochloride (Aricept) 10 Mg Tab 10 MG PO DAILY, TAB TAKE WITH LARGEST MEAL OF THE DAY Lisinopril (Zestril) 20 Mg Tab 20 MG PO DAILY Memantine Hcl (Namenda Xr) 28 Mg Cap 28 MG PO DAILY Metformin Hcl (Glucophage) 500 Mg Tab 500 MG PO BIDM, TAB Warfarin Sod (Coumadin) 2.5 Mg Tab 5 MG PO 2XWK 2 TABLET DOSE EVERY SATURDAY AND SATURDAY Warfarin Sod (Coumadin) 2.5 Mg Tab 2.5 MG PO 5XWK EVERY SATURDAY/SATURDAY/SATURDAY/SATURDAY/SATURDAY Admission Information HPI (per Admitting provider): CHIEF COMPLAINT: Status post mechanical fall with fracture of the right humerus. 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 Apparently, while going up the street, she was run over by a dog and fell on her right side of the shoulder and fractured her right humerus. She did not have any warning symptoms before the fall. She did not have any fever, chills or rigors. No chest pain, shortness of breath or palpitation. No abdominal pain, nausea or vomiting. No numbness or tingling involving any of the extremities. After the fall, she was brought in by ambulance to the [facility] Emergency Room. At ER, she underwent CT scans of the chest, neck and also head; those are fairly unremarkable, but the x-ray of the humerus did show closed fracture of the right humeral head. She was hemodynamically stable, but she was hypoxic on room air because for her ongoing valvular heart disease with mild failure. From that point, she was admitted to medical floor and orthopedic consultation will be taken as well. Physical Exam (per Admitting): PHYSICAL EXAMINATION: GENERAL: On examination in the Emergency Room, she was not having any acute distress. VITAL SIGNS: Temperature 36.5, pulse 70s blood pressure 124/60, saturation 88% on room air and 95% on 4 liters. HEENT: Unremarkable. NECK: Supple. No JVD, no bruit. CHEST: Decreased breath sounds with minimal crackles at the bases. HEART: S1, S2 with a 2/6 systolic murmur over precordium. ABDOMEN: Soft, benign, nontender, no organomegaly. Bowel sounds present. EXTREMITIES: Negative for any edema. MUSCULOSKELETAL: Did not show any acute arthritis but the right upper extremity was not examined. It was in a sling. CENTRAL NERVOUS SYSTEM: She was alert, awake, oriented x3 and no focal sensory and/or motor deficit appreciated. Hospital Course Right humerus fracture s/p mechanical fall CT of RUE showed comminuted fracture of the surgical and anatomic necks of the right humerus. The greater tuberosity is significantly displaced from the distal fracture fragment secondary to angulation and impaction. Ortho on board Will go for surgery tomorrow daughter said that pt was very active before the fall, was doing her own grocery had a functional capacity with a METS greater than a 4 before her injury denies any chest pain, palpitation and SOB Recent Echo done on 02/04 showed no wall motion abnormality Medically stable to proceed with surgery 03/08 s/p reversed tsa for fracture day#2 continue pain control F/U with Dr Syed in 10-14 days. No PT for shoulder for up to 6 weeks follow up with PCP on 03/13 @ 12:45 Valvular heart disease with congestive heart failure. Asymptomatic Continue current meds ECHO on 01/25/17 showed Interpretation Summary The examination is adequate to evaluate the referral indication. The left ventricular cavity size is normal. The LV wall thickness is moderately increased (concentric). The left ventricular wall motion is normal. The qualitative LV ejection fraction is 60-64% (normal). The patient is status post percutneous valve (CoreValve) insertion Aortic valve prosthesis stenosis is absent. Significant aortic valve prosthesis regurgitation is absent. There is moderate posterior mitral annular calcification. Mild mitral regurgitation is present. Mild tricuspid regurgitation is present. Diabetes type 2, Hold Actos for tentative surgery Will put on sliding scale Paroxysmal atrial fibrillation Rate is controlled Coumadin 5 mg given today Check INR on Saturday Continue follow up with the coag clinic Dementia/memory loss. Continue with Aricept. Right Lung mass Need outpatient follow up Thyroid mass Outpatient follow Anxiety/depression Continue with Celexa. Deep venous thrombosis prophylaxis Coumadin resume Code status full code. Disposition Discharge home today with home services Total time spent on discharge = 35 minutes This includes examination of the patient, discharge planning, medication reconciliation, and communication with other providers. Discharge Instructions Discharge Instructions Date of Service Mar 08, 2017. Admission Reason for Admission: Closed Rt Humeral Fx, Vavlular Heart Disease Discharge Discharge Diagnosis / Problem: Right humeral fracture, Paroxysmal aFib , lung mass, Thyroid mass Discharge Goals Goal(s): Decrease discomfort, Improve function, Increase independence, Improve disease control Activity Recommendations Activity Limitations: resume your previous activity (as tolerated) . Instructions / Follow-Up Instructions / Follow-Up Discharge home with home services Follow up with your primary care provider Dr. Bartholomew on 03/13 @ 12:45 Please call [facility] at [phone] to schedule a follow up appointment with Dr. Syed or his PA in 12-14 days from your surgery date. No physical therapy for shoulder for up to 6 weeks Please follow orthopedic recommendation for the right shoulder Follow up with the Coumadin clinic Check INR on Saturday Current Hospital Diet Patient's current hospital diet: AHA Diet (Heart Healthy), Diabetes Type 2 Diet Discharge Diet Recommended Diet: AHA Diet (Heart Healthy), Diabetes Type 2 Diet Procedures Procedures Performed: Right Reverse Total shoulder arthroplasty,biceps tenodesis and repair and bone grafting tuberosities Pending Studies Studies pending at discharge: no Medical Emergencies . Who to Call and When: Medical Emergencies: If at any time you feel your situation is an emergency, please call 911 immediately. . Non-Emergent Contact Non-Emergency issues call your: Primary Care Provider Call Non-Emergent contact if: you have a fever, your pain is not controlled, wound has increased drainage, wound has increased redness, wound has increased pain, you have any medication questions . . "Provider Documentation" section prepared by Marbella Khan. . Tour Actor Recommendations Tour Actor Recommendations: ACTIVITY RECOMMENDATIONS: PT/OT per reversed tsa protocol; limited PT for 6 weeks to allow tuberosity healing ,patient can do exercises at home.plan d/c home with daughter when stable. SELF CARE INSTRUCTIONS AFTER TOTAL SHOULDER ARTHROPLASTY REVERSE A. You may do daily exercises as taught in physical therapy while in hospital. No lifting with the operative arm. B. You are to wear your sling/immobilizer at all times EXCEPT when performing your daily exercises and for hygiene purposes. C. You may perform dry, daily dressing changes. Please keep your incision covered. You may shower 48 hours after surgery. Do not apply soap or any ointment/ lotions directly over incision. Do not soak incision in bath tub/swimming pool. D. You may use ice as needed to operative shoulder. SPECIAL CARE INSTRUCTIONS: VERY IMPORTANT TO READ AND REVIEW A. There are a few signs you need to watch for after you are home. Call [facility] at [phone] if you experience any of the followin. Increased severe shoulder pain. Some pain is expected especially when you exercise. 2. Increased swelling in you shoulder or arm; pain or swelling in either upper extremity. 3. Any fluid drainage from the incision. 4. Shortness of breath or chest pain. B. Please call [facility] at [phone] if you have any questions or concerns about your operation or recovery. C. Call your physician if: 1. Temperature is greater than 101 degrees (F). 2. Pain is not relieved by prescribed pain medications. 3. Increase drainage or redness from incision. 4. Unanswered questions or concerns. FOLLOW UP VISIT: Please call [facility] at [phone] to schedule a follow up appointment with Dr. Syed or his PA in 12-14 days from your surgery date. VTE Core Measure Inpt VTE Proph given/why not?: Warfarin (Coumadin) [place] Drug Monitoring Program Search Results: no issues identified Additional Copies To Janet Bartholomew M.D.
[2017-03-22] MEDS ORDERED: OXYC-57 PO (16:18)
[2017-03-22] MEDS ORDERED: CLC100 PO (16:18)
[2017-03-22] MEDS ORDERED: SENN8.6T7 PO (16:18)
== END 2017-03-08 19:12 | disposition home or self-care (01) | DRG 483 ==
LOC: EDBD 15:38 → C.EDB 15:39 → C.MSN 20:28 → ENRESERV 21:16
PROVIDERS: ADMIT Internal Medicine; ATTEND Internal Medicine
PROC: 0RRJ00Z Replacement of Right Shoulder Joint with Reverse Ball and Socket Synthetic Substitute, Open Approach (ICD-10-PCS; principal; 2017-03-06 07:30)
PROC: 0PUF07Z Supplement Right Humeral Shaft with Autologous Tissue Substitute, Open Approach (ICD-10-PCS; principal; 2017-03-06 07:30)
PROC: 0LS30ZZ Reposition Right Upper Arm Tendon, Open Approach (ICD-10-PCS; principal; 2017-03-06 07:30)
DX: S42.211A Unspecified displaced fracture of surgical neck of right humerus, initial encounter for closed fracture (principal); I38 Endocarditis, valve unspecified; S42.291A Other displaced fracture of upper end of right humerus, initial encounter for closed fracture; M75.21 Bicipital tendinitis, right shoulder; W54.1XXA Struck by dog, initial encounter; Y92.410 Unspecified street and highway as the place of occurrence of the external cause; I11.0 Hypertensive heart disease with heart failure; I50.9 Heart failure, unspecified; R09.02 Hypoxemia; I27.2 Other secondary pulmonary hypertension; E11.9 Type 2 diabetes mellitus without complications; I48.0 Paroxysmal atrial fibrillation; F03.90 Unspecified dementia, unspecified severity, without behavioral disturbance, psychotic disturbance, mood disturbance, and anxiety; F41.9 Anxiety disorder, unspecified; M81.0 Age-related osteoporosis without current pathological fracture; E78.5 Hyperlipidemia, unspecified; G89.29 Other chronic pain; M54.9 Dorsalgia, unspecified; I65.29 Occlusion and stenosis of unspecified carotid artery; R91.1 Solitary pulmonary nodule; E04.2 Nontoxic multinodular goiter; Z98.84 Bariatric surgery status; Z90.49 Acquired absence of other specified parts of digestive tract; Z87.891 Personal history of nicotine dependence; Z79.01 Long term (current) use of anticoagulants; Z79.82 Long term (current) use of aspirin; Z79.83 Long term (current) use of bisphosphonates; Z79.899 Other long term (current) drug therapy; Z82.49 Family history of ischemic heart disease and other diseases of the circulatory system; Z81.8 Family history of other mental and behavioral disorders

== ENCOUNTER 2017-03-18 05:57 | Inpatient (IN) | payer OTHER ==
[~2017-03-18] VITALS: Ht 149.9 cm; Wt 64.5 kg
[~2017-03-18 05:57] MED LIST changes: -ACT/15 PO; -ARC10 PO; +ATOR-24 PO; -ATV5 PO; -BROMFENAC 0.09% OPR; -CARV3.12 PO; +CARV3.122 PO; +CITA20TA9 PO; -CLC100 PO; -CLX20 PO; +CMD25 PO; +DONE10TA12 PO; -FSM70 PO; +FSMD/70 PO; +GLC/500 PO; +MEMA1CAP7 PO; -NMN10 PO; -OXYC-57 PO; -POTA20TA16 PO; -PRED1SUS3 OPR
[2017-03-18] MEDS ORDERED: ASPI81TA28 PO (06:20)
[2017-03-18] MEDS ORDERED: KETO10TA PO (06:21)
[2017-03-18] MEDS ORDERED: SODIUM CHLORIDE 0.9% 1000ML 1,000 ML IV ONE (06:52)
--- NOTE | 2017-03-18 06:52 | DIAGNOSTIC IMAGING REPORT ---
CHEST 1 VW FRONT-NOT PORTABLE CLINICAL HISTORY: Left hip fracture. COMPARISON STUDY: 10/13/2009 FINDINGS: The heart is at the upper limits of normal in size. There is an aortic valve endoprosthesis. There are calcifications within the mitral valve annulus. There is no failure. There is no focal pulmonary consolidation. There are no pleural effusions. There are postsurgical changes of a right shoulder reverse total arthroplasty. There is a surgical clip within the right upper quadrant. There is deviation of the trachea to the right of midline consistent with the patient's known left-sided thyroid nodule[ IMPRESSION: No active disease in the chest. Electronically signed by: Mejia Shepherd M.D. 03/18/2017 6:50 AM Dictated Date/Time: 03/18/2017 6:48 AM
--- NOTE | 2017-03-18 06:53 | DIAGNOSTIC IMAGING REPORT ---
LEFT HIP UNILATERAL 2 VIEWS CLINICAL HISTORY: Left hip pain status post trauma COMPARISON: None. DISCUSSION: There is an acute intertrochanteric left hip fracture. No dislocation is visualized. IMPRESSION: Intertrochanteric left hip fracture Electronically signed by: Mejia Shepherd M.D. 03/18/2017 6:51 AM Dictated Date/Time: 03/18/2017 6:51 AM
[2017-03-18 07:04] LABS: BASO % 0.4 %; BASO ABS # 0.04 K/uL (0-0.2); EOS % 1.4 %; HEMATOCRIT 29.8 % (37-47); IG% 0.2 %; LYMPH % 7.8 %; LYMPH ABS # 0.76 K/uL (1.2-3.4); MEAN CELL VOLUME 81.2 fL (80-100); MEAN CORPUSCULAR HGB CONC 29.5 g/dl (32-36); MEAN PLATELET VOLUME 9.7 fL (7.4-10.4); MONO % 6.8 %; NEUT % 83.4 %; PLATELET COUNT 377 K/uL (130-400); RED BLOOD COUNT 3.67 M/uL (4.2-5.4); WHITE BLOOD COUNT 9.69 K/uL (4.8-10.8)
[2017-03-18 07:13] LABS: BUN/CREATININE RATIO 17.8 (10-20); CALCIUM 6.9 mg/dl (8.5-10.1); CREATININE 0.53 mg/dl (0.60-1.20); POTASSIUM 3.4 mmol/L (3.5-5.1)
[2017-03-18 07:16] LABS: PARTIAL THROMBOPLASTIN RATIO 1.9; PROTHROMBIN TIME (PATIENT) 84.2 SECONDS (9.0-12.0)
[2017-03-18] MEDS: MoRPHine SULFATE 4 MG/ML 1 ML CARP\\VIAL IV PRN ×3 (07:17→10:13)
[2017-03-18 07:24] LABS: INR 7.2 (0.9-1.1)
[2017-03-18] MEDS ORDERED: PHYTONADIONE 5 MG TAB PO STA (07:27)
[2017-03-18 07:33] LABS: COMPLETE YES; HYPOCHROMIA PRESENT; OVALOCYTES 1+; POLYCHROMASIA 1+
[2017-03-18 07:40] LABS: MANUAL MICROSCOPIC REQUIRED? NO; REVIEW REQ? NO; URINE APPEARANCE CLEAR (CLEAR); URINE BILIRUBIN NEG (NEG); URINE COLOR YELLOW; URINE NITRITE NEG (NEG); URINE SPECIFIC GRAVITY 1.018 (1.000-1.030); UROBILINOGEN NEG (NEG); ZZURINE CULT IF INDIC CATH NO
--- NOTE | 2017-03-18 07:42 | DIAGNOSTIC IMAGING REPORT ---
CT HEAD WITHOUT CONTRAST (CT) CLINICAL HISTORY: Head trauma. Patient on Coumadin. COMPARISON STUDY: 03/04/2017 TECHNIQUE: Axial CT of the brain is performed from the vertex to the skull base. IV contrast was not administered for this examination. A dose lowering technique was utilized adhering to the principles of ALARA. CT DOSE: 1056.42 mGy.cm FINDINGS: No intra-axial mass lesions are visualized. There is no CT evidence of acute cortical infarction. There is no evidence of midline shift. There is no acute hemorrhage. No calvarial fractures are visualized. There is a stable dural based calcification within the left posterior vertex. This may represent an old calcified meningioma. There are patchy white matter hypodensities likely on a small vessel basis. 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 There is no evidence of pathologic ventricular dilatation. There is no evidence of acute sinusitis IMPRESSION: No acute intracranial findings Electronically signed by: Mejia Shepherd M.D. 03/18/2017 7:40 AM Dictated Date/Time: 03/18/2017 7:38 AM
--- NOTE | 2017-03-18 07:45 | DIAGNOSTIC IMAGING REPORT ---
CERVICAL SPINE W/O CLINICAL HISTORY: 76 years-old Female presenting with trauma. TECHNIQUE: Multidetector CT of the cervical spine was performed without the use of intravenous contrast. IV contrast: None. A dose lowering technique was used consistent with the principles of ALARA (as low as reasonably achievable). COMPARISON: 03/04/2017. CT DOSE (mGy.cm): The estimated cumulative dose is 1056.[address] head. FINDINGS: Dermatology Technician topogram: Unremarkable. Slightly exaggerated cervical lordosis as on prior exam. Minimal grade 1 anterolisthesis of C7 on T1 again noted. Otherwise vertebral bodies maintain normal alignment. There is mild height loss of C7 unchanged. Multiple disc osteophyte complexes at several levels primarily in the mid to lower cervical region, unchanged from prior. Mild rotation of C1 relative to C2 not significantly changed from prior and possibly suggesting mild rotatory subluxation. However, the lateral masses of C1 still articulate normally with C2. No acute fracture or subluxation. Degenerative changes of the atlantoaxial articulation. No significant osseous neural foraminal or spinal canal stenosis. Skull base normal. Limited intracranial evaluation within normal limits. Large left-sided mass at the thoracic inlet possibly within the thyroid gland with deviation of the upper trachea to the right grossly unchanged from prior exam. Lung apices clear. IMPRESSION: Multilevel degenerative changes as on prior exam. Chronic changes as above. No acute fracture or subluxation. Large left thyroid nodule unchanged. Electronically signed by: Luis Andres M.D. 03/18/2017 7:44 AM Dictated Date/Time: 03/18/2017 7:39 AM
--- NOTE | 2017-03-18 08:15 | DIAGNOSTIC IMAGING REPORT ---
PELVIS 1 OR 2 VIEW ROUTINE CLINICAL HISTORY: trauma left hip pain, left hip fracture. COMPARISON STUDY: Left hip films dated 03/18/2017 FINDINGS: There is an intertrochanteric left hip fracture. No fractures the right hip are visualized. There is no SI joint diastases. There is no symphysis diastases. No ischio pubic ring fractures are evident. There are postsurgical changes present within the left lower quadrant. IMPRESSION: Acute intertrochanteric left hip fracture. Electronically signed by: Mejia Shepherd M.D. 03/18/2017 8:13 AM Dictated Date/Time: 03/18/2017 8:12 AM
--- NOTE | 2017-03-18 08:51 | EMERGENCY ROOM VISIT NOTE ---
History First contact with patient: 06:13 Chief Complaint: FALL Stated Complaint: FALL/HIP FRACTURE History of Present Illness The patient is a 76 year old female with significant PMH of hypertension, heart failure, pulmonary hypertension, T2DM, paroxysmal Afib, HLD, Anxiety, DESOUZA, and memory loss who presents to the Emergency Room with complaints of fall at 0430 this AM. Her daughter was helping her to the bathroom, daughter left her to give her privacy, whereupon the patient fell backwards, hitting her head and complaining of severe leg pain. There were no warning symptoms/dizziness/vertigo immediately prior to the fall. However, patient has been unsteady on her feet recently after a mechanical fall 2 weeks ago requiring right total shoulder arthroplasty. She has been using a cane since the operation and R arm has been in a sling. Source of History: patient, family History Limited By: dementia Position: leg (left) Symptom Intensity: severe Quality: sharp, stabbing Timing: constant Modifying Factors (Worsening): movement Review of Systems Pt reports decreased ROM in right arm and chronic back pain. Pt denies LOC, headache, fevers, chills, diaphoresis, visual changes, neck pain , chest pain, breathing difficulties, nausea, vomiting, abdominal pain, melena, hematochezia, urinary symptoms, numbness, weakness, lymphadenopathy, rash, or other complaints. Past Medical/Surgical History Medical Problems: (1) Alzheimers disease (2) Closed right humeral fracture (3) HTN (hypertension) (4) Osteoporosis (5) Valvular heart disease (6) Paroxysmal Atrial Fibrillation, on coumadin Social History Smoking Status: Former Smoker Drug Use: none Marital Status: Housing Status: lives with family (temporarily until fully recovered from previous fall) Occupation Status: retired Current/Historical Medications Scheduled Alendronate/Cholecalciferol (Fosamax+D 70MG/2800 Iu), 70 MG PO WK Amitriptyline Hcl (Elavil), 10 MG PO DHS Amlodipine Besylate (Norvasc), 10 MG PO DAILY Aspirin (Aspirin Ec), 81 MG PO DAILY Atorvastatin (Lipitor), 40 MG PO DAILY Carvedilol (Coreg), 3.125 MG PO BIDM Citalopram Hydrobromide (Celexa), 20 MG PO DAILY Donepezil Hydrochloride (Aricept), 10 MG PO DAILY Lisinopril (Zestril), 20 MG PO DAILY Memantine Hcl (Namenda Xr), 28 MG PO DAILY Metformin Hcl (Glucophage), 500 MG PO BIDM Warfarin Sod (Coumadin), 5 MG PO 2XWK Warfarin Sod (Coumadin), 2.5 MG PO 5XWK Scheduled PRN Ketorolac Tromethamine (Toradol), 1 TAB PO TID PRN for Pain Physical Exam Vital Signs Date Time Temp Pulse Resp B/P (MAP) Pulse Ox O2 Delivery O2 Flow Rate FiO2 03/18/17 06:28 72 03/18/17 06:00 36.4 83 18 136/63 93 Room Air Pain Rating (0-10): 8 Physical Exam GENERAL: Awake, alert, well-appearing, in no distress HENT: Normocephalic, atraumatic. Oropharynx unremarkable. Old bruise at right temporal region from previous fall EYES: Normal conjunctiva. Sclera non-icteric. Pinpoint pupils NECK: Supple. No nuchal rigidity. FROM. No JVD. RESPIRATORY: Clear to auscultation. CARDIAC: Regular rate, irregularly irregular rhythm. Extremities warm and well perfused. Pulses equal. ABDOMEN: Soft, non-distended. No tenderness to palpation. No rebound or guarding. No masses. RECTAL: Deferred. MUSCULOSKELETAL: Left leg shortened and externally rotated. R shoulder has 7 inch incision from recent surgery with jeanette in situ. Chest examination reveals no tenderness. The back is symmetrical on inspection without obvious abnormality. There is no CVA tenderness to palpation. No joint edema. LOWER EXTREMITIES: Calves are equal size bilaterally and non-tender. No edema. No discoloration. NEURO: Normal sensorium. No sensory or motor deficits noted. SKIN: Minor scrape of lower right leg noted, result of previous fall. No rash or jaundice noted. Medical Decision & Procedures Laboratory Results 03/18/17 06:10 Red Blood Count 3.67, Mean Corpuscular Volume 81.2, Mean Corpuscular Hemoglobin 24.0, Mean Corpuscular Hemoglobin Concent 29.5, Mean Platelet Volume 9.7, Neutrophils (%) (Auto) 83.4, Lymphocytes (%) (Auto) 7.8, Monocytes (%) (Auto) 6.8, Eosinophils (%) (Auto) 1.4, Basophils (%) (Auto) 0.4, Neutrophils # (Auto) 8.07, Lymphocytes # (Auto) 0.76, Monocytes # (Auto) 0.66, Eosinophils # (Auto) 0.14, Basophils # (Auto) 0.04 03/18/17 06:10 Test 03/18/17 06:10 03/18/17 06:20 White Blood Count 9.69 K/uL (4.8-10.8) Red Blood Count 3.67 M/uL (4.2-5.4) Hemoglobin 8.8 g/dL (12.0-16.0) Hematocrit 29.8 % (37-47) Mean Corpuscular Volume 81.2 fL (80-100) Mean Corpuscular Hemoglobin 24.0 pg (25-34) Mean Corpuscular Hemoglobin Concent 29.5 g/dl (32-36) Platelet Count 377 K/uL (130-400) Mean Platelet Volume 9.7 fL (7.4-10.4) Neutrophils (%) (Auto) 83.4 % Lymphocytes (%) (Auto) 7.8 % Monocytes (%) (Auto) 6.8 % Eosinophils (%) (Auto) 1.4 % Basophils (%) (Auto) 0.4 % Neutrophils # (Auto) 8.07 K/uL (1.4-6.5) Lymphocytes # (Auto) 0.76 K/uL (1.2-3.4) Monocytes # (Auto) 0.66 K/uL (0.11-0.59) Eosinophils # (Auto) 0.14 K/uL (0-0.5) Basophils # (Auto) 0.04 K/uL (0-0.2) RDW Standard Deviation 54.0 fL (36.4-46.3) RDW Coefficient of Variation 18.1 % (11.5-14.5) Immature Granulocyte % (Auto) 0.2 % Immature Granulocyte # (Auto) 0.02 K/uL (0.00-0.02) Polychromasia 1+ Hypochromasia PRESENT Ovalocytes 1+ Prothrombin Time 84.2 SECONDS (9.0-12.0) Prothromb Time International Ratio 7.2 (0.9-1.1) Activated Partial Thromboplast Time 49.9 SECONDS (21.0-31.0) Partial Thromboplastin Ratio 1.9 Anion Gap 7.0 mmol/L (3-11) Est Creatinine Clear Calc Drug Dose 71.5 ml/min Estimated GFR () 105.4 Estimated GFR (Non- 90.9 BUN/Creatinine Ratio 17.8 (10-20) Calcium Level 6.9 mg/dl (8.5-10.1) Troponin I < 0.015 ng/ml (0-0.045) Urine Color YELLOW Urine Appearance CLEAR (CLEAR) Urine pH 5.0 (4.5-7.5) Urine Specific Godley 1.018 (1.000-1.030) Urine Protein NEG (NEG) Urine Glucose (UA) NEG (NEG) Urine Ketones NEG (NEG) Urine Occult Blood NEG (NEG) Urine Nitrite NEG (NEG) Urine Bilirubin NEG (NEG) Urine Urobilinogen NEG (NEG) Urine Leukocyte Esterase NEG (NEG) Medications Administered Medications (Trade) Dose Ordered Sig/Ubaldo Route Start Time Stop Time Status Last Admin Dose Admin Sodium Chloride 1,000 ml @ 150 mls/hr Q6H40M ONCE IV 03/18/17 06:52 03/18/17 13:31 03/18/17 07:17 150 MLS/HR Morphine Sulfate (MoRPHine SULFATE INJ) 4 mg Q60M PRN IV 03/18/17 07:00 04/01/17 06:59 03/18/17 07:17 4 MG ED Course 0600: patient arrives in ED 0615: complete H&P performed in bay B7. CXR, left hip XR ordered 0645: Head CT, CBC, Coags, BMP ordered 0700: Calcium 6.9 0730: INR found to be 7.2, Head CT normal 0800: Vit K, 2.5 tab given 0908: Called by jasmin Rodriguez; we discussed patient's course and she agrees to treatment plan and will consult in hospital 0930: Discussed case with KHUSHI Gomez, who agrees with plan and will evaluate for further management. Medical Decision Differentials: Closed Left hip fracture, Subdural hematoma, Sub arachnoid hemorrhage, hypotension, syncopal episode, arrhythmia. History, physical exam, and radiology interpretation confirm likely diagnosis of intertrochanteric hip fracture. Discussed case with orthopedic PA, Alpa Bloom, who agrees with plan of care and will consult in hospital. Discussed case with KHUSHI Gomez with [facility] for clearance considering PMH of HTN, Valvular HD with CHF, pAfib, T2DM with orthopedic consult for hip fracture ; Low suspicion for other traumatic injury; abdomen soft and non tender, Head CT negative, Cspine negative. Head injury: Head CT/Cspine shows no acute head bleed or other pathology; will continue to monitor for symptoms considering age, INR, and hx of fall with head trauma Supratherapeutic INR: 7.2; 2.5 of Vit K administered. Anemia: Chronic, stable, no intervention needed at this time; continue to monitor. *Sutures from shoulder surgery to be removed after today* Consults Time Called: [phone] Consulting Physician: Alpa Bloom Returned Call: [phone] Called by jasmin Rodriguez; we discussed patient's course and she agrees to treatment plan and will consult in hospital Additional Consults: Time Called: [phone] Consulted Physician: KHUSHI Gomez Returned Call: [phone] Additional Comments: Discussed case with Alexandria Chapin, who agrees with treatment plan. Impression Primary Impression: Intertrochanteric fracture of left hip Additional Impressions: Fall Anemia Contusion of multiple sites Supratherapeutic INR Departure Information Dispostion Being Evaluated By Hospitalist Referrals Janet Bartholomew M.D. (PCP) Patient Instructions My [facility] Resident Tracking Resident Involvement: Resident Care Provided Care Provided: Adult ED Problem Qualifiers Primary Impression: Intertrochanteric fracture of left hip Encounter type: initial encounter Fracture type: closed Fracture alignment : displaced Qualified Codes: S72.142A - Displaced intertrochanteric fracture of left femur, initial encounter for closed fracture Additional Impressions: Fall Encounter type: initial encounter Qualified Codes: W19.XXXA - Unspecified fall, initial encounter Anemia Anemia type: unspecified type Qualified Codes: D64.9 - Anemia, unspecified
[2017-03-18] MEDS ORDERED: SOD PHOSPHATE/SOD BIPHOSPHATE ENEMA 132 ML BTL PR PRN (10:15)
[2017-03-18] MEDS ORDERED: ACETAMINOPHEN 325 MG TAB PO PRN (10:15)
[2017-03-18] MEDS ORDERED: ONDANSETRON INJ 2 MG/ML 2 ML VIAL IV PRN (10:15)
[2017-03-18] MEDS ORDERED: MAGNESIUM HYDROXIDE SUSP 30 ML UDC PO PRN (10:15)
[2017-03-18] MEDS ORDERED: BISACODYL 10 MG SUPP PR PRN (10:15)
[2017-03-18] MEDS ORDERED: POLYETHYLENE (MIRALAX) 17 GM PACK PO PRN (10:15)
[2017-03-18] MEDS ORDERED: MoRPHine SULFATE 4 MG/ML 1 ML CARP\\VIAL IV PRN (10:15)
[2017-03-18] MEDS ORDERED: NALOXONE HCL 0.4 MG/1 ML VIAL/CARP IV PRN (10:15)
[2017-03-18] MEDS ORDERED: CALC500C70 PO (10:22)
[2017-03-18] MEDS ORDERED: TRAM-10 PO (10:22)
[2017-03-18] MEDS ORDERED: ALEN70TA2 PO (10:22)
[2017-03-18] MEDS ORDERED: GLUCAGON FOR INJ 1 MG VIAL SQ PRN (10:30)
[2017-03-18] MEDS ORDERED: GLUCOSE 40% GEL 15 GM TUBE PO PRN (10:30)
[2017-03-18] MEDS ORDERED: GLUCOSE 10 TABS/TUBE PO PRN (10:30)
[2017-03-18] MEDS ORDERED: DEXTROSE 50% 50 ML SYR IV PRN (10:30)
--- NOTE | 2017-03-18 10:35 | EMERGENCY ROOM VISIT NOTE ---
ED Visit Note First contact with patient: 06:27 Patient seen and examined at bedside by myself. Discussed all management, labs , imaging with the resident on the case. Patient admitted to medicine with orthopedic consultation for an intertrochanteric hip fracture. Low suspicion for any additional culture medic injury, other imaging negative. Patient's anemia stable compared to baseline, INR found to be supratherapeutic and patient given vitamin K.
[2017-03-18] MEDS ORDERED: MoRPHine SULFATE 2 MG/ML CARP IV STA (11:03)
[2017-03-18] MEDS ORDERED: OXYCODONE/ACETAMINOPHEN 5-325 TAB PO ONE (11:03)
[2017-03-18] MEDS ORDERED: MAGNESIUM SULFATE 1GM / D5W 1 GM BAG ONE (11:28)
[2017-03-18] MEDS ORDERED: PHYTONADIONE INJ 5 MG in SODIUM CHLORIDE 0.9% 50ML 50 ML IV ONE (11:30)
--- NOTE | 2017-03-18 11:58 | History and Physical ---
History & Physical Date & Time of Service: Mar 18, 2017 ~ 09:45 Chief Complaint: Fall, Left Hip Pain Primary Care Physician: Janet Bartholomew M.D. History of Present Illness 76 year old female who presents to the ER after a fall and developing left hip pain. Patient was recently admitted to [facility] 03/04 - 03/08 after sustaining a mechanical fall and fracturing her right humerus. Patient underwent a right total shoulder arthroplasty on 03/07. Patient reports she has been feeling well since being home. Early this morning, her daughter walked her to the bathroom and when she turned around to leave, the patient fell to the ground. Patient reports she remembers falling however is unsure how she fell. Thinks her legs just gave out from underneath of her. She reports she hit the back of her head and had immediate left hip pain following the fall. She denies associated lightheadedness, dizziness, chest pain, or palpitations. Patient was incontinent of urine however no seizure like activity or postictal state noted. Family was able to help the patient off of the ground however she was unable to bear weight on her left leg. EMS was then called. She denies any recent illnesses, fever, or chills. No abdominal pain, nausea, vomiting, or diarrhea. She denies urinary symptoms. No worsening shortness of breath, weight gain, lower extremity edema, or orthopnea. In the ER, patient is found to have an acute intertrochanteric left hip fracture. EKG does not show any acute ST changes. K+ and Mg+ are mildly low. Hgb is at baseline at 8.8. INR is 7.3. Vitals are stable. Patient was given Vitamin K 5mg PO and IV Morphine. Past Medical/Surgical History Medical Problems: (1) Anxiety Status: Chronic (2) Atrial fibrillation Status: Chronic (3) Carotid stenosis Permanent Comment: carotid US 01/2016 - 50-60% right ICA, < 50% left ICA Status: Chronic (4) Compression fracture Status: Chronic (5) Diabetic neuropathy Status: Chronic (6) DM type 2 (diabetes mellitus, type 2) Status: Chronic (7) Dyslipidemia Status: Chronic (8) Heart failure due to valvular disease Permanent Comment: echo 01/2017 - moderate LVH, EF 60-64%, mild MR, mild TR Status: Chronic (9) HTN (hypertension) Status: Chronic (10) HTN (hypertension) Status: Chronic (11) DESOUZA (nonalcoholic steatohepatitis) Status: Chronic (12) Osteoporosis Status: Chronic (13) Pulmonary HTN Status: Chronic (14) Right humeral fracture Status: Chronic (15) Thyroid mass Status: Chronic Surgical Problems: (1) H/O gastric bypass Status: Chronic (2) H/O varicose vein stripping Status: Chronic (3) History of cataract surgery Status: Chronic (4) History of hysterectomy Status: Chronic (5) Hx of cardiac cath Permanent Comment: 2013 - diffuse minor irregularities Status: Chronic (6) Hx of cholecystectomy Status: Chronic (7) S/P TAVR (transcatheter aortic valve replacement) Status: Chronic (8) Status post total shoulder arthroplasty Permanent Comment: right Status: Chronic Family History FH: CAD (coronary artery disease) FATHER Social History Smoking Status: Former Smoker Alcohol Use: none Housing status: lives with family Immunizations History of Influenza Vaccine: Yes Influenza Vaccine Date: Jul 05, 2014 History of Tetanus Vaccine?: Yes Tetanus Immunization Date: December 16, 2007 History of Pneumococcal: Yes Pneumococcal Date: Oct 28, 2007 Multi-Drug Resistant Organisms History of MDRO: No Allergies Coded Allergies: No Known Allergies (Unverified , 03/18/17) Home Medications Scheduled Alendronate Sodium (Fosamax), 1 TAB PO WK Amitriptyline Hcl (Elavil), 10 MG PO HS Amlodipine Besylate (Norvasc), 10 MG PO DAILY Aspirin (Aspirin Ec), 81 MG PO DAILY Atorvastatin (Lipitor), 40 MG PO DAILY Calcium/Vitamin D (Os-Wei 500 Plus D), 1 TAB PO BID Carvedilol (Coreg), 3.125 MG PO BIDM Citalopram Hydrobromide (Celexa), 20 MG PO DAILY Donepezil Hydrochloride (Aricept), 10 MG PO DAILY Lisinopril (Zestril), 20 MG PO DAILY Memantine Hcl (Namenda Xr), 28 MG PO DAILY Metformin Hcl (Glucophage), 500 MG PO BIDM Warfarin Sod (Coumadin), 5 MG PO 3XWK Warfarin Sod (Coumadin), 2.5 MG PO 4XWK Scheduled PRN Tramadol (Ultram), 50 MG PO Q6H PRN for Pain Review of Systems ROS per HPI, all other systems reviewed and negative Physical Exam Vital Signs Date Time Temp Pulse Resp B/P (MAP) Pulse Ox O2 Delivery O2 Flow Rate FiO2 03/18/17 10:11 87 03/18/17 10:11 112/56 03/18/17 10:01 91/48 03/18/17 09:53 91 18 99 03/18/17 09:31 114/53 03/18/17 09:23 86 20 99 03/18/17 09:01 113/57 03/18/17 08:53 88 21 98 03/18/17 08:34 97 Nasal Cannula 2.0 03/18/17 08:31 115/52 03/18/17 08:23 81 17 94 03/18/17 08:18 130/77 03/18/17 07:06 88 25 92 03/18/17 07:01 120/48 03/18/17 07:00 85 25 03/18/17 06:28 72 03/18/17 06:00 36.4 83 18 136/63 93 Room Air General Appearance: no apparent distress Head: normocephalic Eyes: normal inspection ENT: hearing grossly normal Neck: supple, no JVD Respiratory/Chest: lungs clear, normal breath sounds, no respiratory distress Cardiovascular: no edema, + irregularly irregular (rate controlled) Abdomen/GI: normal bowel sounds, non tender, soft Extremities/Musculoskelatal: + pertinent finding (LLE shortened and externally rotated, pain with palpation over left hip; jeanette intact to right upper arm, no surrounding erythema or drainage) Neurologic/Psych: no motor/sensory deficits, alert, normal mood/affect, oriented x 3 Skin: normal color, warm/dry Diagnostics Laboratory Results Results Past 24 Hours Test 03/18/17 06:10 03/18/17 06:20 03/18/17 10:35 Range/Units White Blood Count 9.69 4.8-10.8 K/uL Red Blood Count 3.67 4.2-5.4 M/uL Hemoglobin 8.8 12.0-16.0 g/dL Hematocrit 29.8 37-47 % Mean Corpuscular Volume 81.2 80-100 fL Mean Corpuscular Hemoglobin 24.0 25-34 pg Mean Corpuscular Hemoglobin Concent 29.5 32-36 g/dl Platelet Count 377 130-400 K/uL Mean Platelet Volume 9.7 7.4-10.4 fL Neutrophils (%) (Auto) 83.4 % Lymphocytes (%) (Auto) 7.8 % Monocytes (%) (Auto) 6.8 % Eosinophils (%) (Auto) 1.4 % Basophils (%) (Auto) 0.4 % Neutrophils # (Auto) 8.07 1.4-6.5 K/uL Lymphocytes # (Auto) 0.76 1.2-3.4 K/uL Monocytes # (Auto) 0.66 0.11-0.59 K/uL Eosinophils # (Auto) 0.14 0-0.5 K/uL Basophils # (Auto) 0.04 0-0.2 K/uL RDW Standard Deviation 54.0 36.4-46.3 fL RDW Coefficient of Variation 18.1 11.5-14.5 % Immature Granulocyte % (Auto) 0.2 % Immature Granulocyte # (Auto) 0.02 0.00-0.02 K/uL Polychromasia 1+ Hypochromasia PRESENT Ovalocytes 1+ Prothrombin Time 84.2 9.0-12.0 SECONDS Prothromb Time International Ratio 7.2 0.9-1.1 Activated Partial Thromboplast Time 49.9 21.0-31.0 SECONDS Partial Thromboplastin Ratio 1.9 Sodium Level 144 136-145 mmol/L Potassium Level 3.4 3.5-5.1 mmol/L Chloride Level 113 98-107 mmol/L Carbon Dioxide Level 24 21-32 mmol/L Anion Gap 7.0 3-11 mmol/L Blood Urea Nitrogen 9 7-18 mg/dl Creatinine 0.53 0.60-1.20 mg/dl Est Creatinine Clear Calc Drug Dose 71.5 ml/min Estimated GFR () 105.4 Estimated GFR (Non- 90.9 BUN/Creatinine Ratio 17.8 10-20 Random Glucose 123 70-99 mg/dl Calcium Level 6.9 8.5-10.1 mg/dl Magnesium Level 1.5 1.8-2.4 mg/dl Troponin I < 0.015 0-0.045 ng/ml Urine Color YELLOW Urine Appearance CLEAR CLEAR Urine pH 5.0 4.5-7.5 Urine Specific [place] 1.018 1.000-1.030 Urine Protein NEG NEG Urine Glucose (UA) NEG NEG Urine Ketones NEG NEG Urine Occult Blood NEG NEG Urine Nitrite NEG NEG Urine Bilirubin NEG NEG Urine Urobilinogen NEG NEG Urine Leukocyte Esterase NEG NEG Diagnostic Radiology HIP XR IMPRESSION: Intertrochanteric left hip fracture CXR IMPRESSION: No active disease in the chest. PELVIS XR IMPRESSION: Acute intertrochanteric left hip fracture. HEAD CT IMPRESSION: No acute intracranial findings C SPINE CT IMPRESSION: Multilevel degenerative changes as on prior exam. Chronic changes as above. No acute fracture or subluxation. Large left thyroid nodule unchanged. Impression Assessment and Plan ACUTE LEFT INTERTROCHANTERIC HIP FRACTURE - admit to med/surg - patient presenting with left hip pain after sustaining a mechanical fall in the bathroom; XR in the ED showing an acute left intertochanteric hip fracture - history does not suggest syncope, seizure, or loss of consciousness - pain control with bowel regimen - bedrest, PT/OT when appropriate - hx of osteoporosis - will check Vit D, B12, and folate levels - ortho consult - EKG without acute ST changes, recent echo 01/2017 (moderate LVH, EF 60-64%, mild MR, mild TR), CXR clear - on Coumadin for a.fib, INR noted to be 7.3 - s/p Vit K 2.5mg PO in the ED; no signs of bleeding; will give an additional 5mg IV now - if INR and hgb stable; patient can proceed to the OR and be considered an acceptable risk HYPOKALEMIA, HYPOMAGNESEMIA - mild - replace, follow up labs in AM ANEMIA - hgb at recent baseline (had blood loss anemia from recent right shoulder surgery) - no signs of bleeding - hgb 8.8, no role for transfusion at this time ATRIAL FIBRILLATION - rate controlled on beta michelle, will continue - on Coumadin as above HTN - BP controlled, continue amlodipine, lisinopril, and carvedilol DM - hgb a1c 7.2 11/2016 - hold oral agents and utilize SSI while hospitalized CHRONIC CHF DUE TO VALVULAR DISEASE - examines to be euvolemic - not on routine diuretics ANXIETY, DEMENTIA - continue home meds RECENT RIGHT HUMERUS FRACTURE - s/p right shoulder arthroplasty 03/07 - appreciate ortho input regarding staple removal DVT PROPHYLAXIS - SCDs when INR < 2.0 - pharmacologic prophylaxis as per ortho CODE STATUS - Patient is a full code as per my discussion with her. DISPO - In my clinical judgment this beneficiary meets acute admission criteria, established by [facility], that includes being hospitalized through two midnights. Attending Addendum: I have seen and examined the patient and agree with the assessment and plan as stated above. Discussed case with Ortho. Will repeat INR later tonight and again in am. NPO p MN in preparation for surgery in am. Pain control efforts underway. Pasquale, DO Level of Care Med/Surg Resuscitation Status FULL RESUSCITATION VTE Prophylaxis VTE Risk Assessment Done? Y/N: Yes Risk Level: Moderate Given or contraindicated: Contraindicated
[2017-03-18] MEDS: MAGNESIUM SULFATE 1GM / D5W 1 GM in PREMIXED IN D5W 100 ML IV SCH ×2 (12:03→14:06)
[2017-03-18 13:00] VITALS: BP 128/62; PULSE 80; TEMP 37.2; O2SAT 98
[2017-03-18] MEDS ORDERED: POTASSIUM CHLORIDE 20 MEQ TABCR PO ONE (13:30)
[2017-03-18 13:37] VITALS: BP 128/62; PULSE 80; TEMP 37.2; O2SAT 98; Ht 149.9 cm; Wt 64.5 kg
--- NOTE | 2017-03-18 15:05 | Orthopedic Consultation ---
Orthopedic Consultation Date of Consultation: Mar 18, 2017. Attending Physician: Cinthia Giordano DO Reason for Consultation: Left hip pain status post fall, left hip fracture History of Present Illness Pleasant 77-year-old female who was admitted to the hospital today the medical service with a diagnosis of a left hip fracture. Patient currently resting in bed in pretty good spirits and drinking coffee. Patient which is in the hospital about 2 weeks ago for a shoulder fracture which was fixed by one of my associates. Patient otherwise did well has no complaints and he rolls her body this point in time no right hip pain and no ankle pain and no wrist pain. The right sling is barely fitting on her right arm otherwise she feels pretty comfortable. Past Medical/Surgical History Medical Problems: (1) Fracture of humeral head, right, closed Status: Acute (2) Hypoxia Status: Acute (3) Mediastinal lymphadenopathy Status: Acute (4) Thyroid mass Status: Acute Family History FH: CAD (coronary artery disease) FATHER Social History Smoking Status: Former Smoker Alcohol Use: none Housing Status: lives with family (temporarily until fully recovered from previous fall) Allergies Coded Allergies: No Known Allergies (Unverified , 03/18/17) Home Medications Scheduled Alendronate Sodium (Fosamax), 1 TAB PO WK Amitriptyline Hcl (Elavil), 10 MG PO HS Amlodipine Besylate (Norvasc), 10 MG PO DAILY Aspirin (Aspirin Ec), 81 MG PO DAILY Atorvastatin (Lipitor), 40 MG PO DAILY Calcium/Vitamin D (Os-Wei 500 Plus D), 1 TAB PO BID Carvedilol (Coreg), 3.125 MG PO BIDM Citalopram Hydrobromide (Celexa), 20 MG PO DAILY Donepezil Hydrochloride (Aricept), 10 MG PO DAILY Lisinopril (Zestril), 20 MG PO DAILY Memantine Hcl (Namenda Xr), 28 MG PO DAILY Metformin Hcl (Glucophage), 500 MG PO BIDM Warfarin Sod (Coumadin), 5 MG PO 3XWK Warfarin Sod (Coumadin), 2.5 MG PO 4XWK Scheduled PRN Tramadol (Ultram), 50 MG PO Q6H PRN for Pain Current Inpatient Medications Current Inpatient Medications Medications (Trade) Dose Ordered Sig/Ubaldo Route Start Time Stop Time Status Last Admin Dose Admin Acetaminophen (Tylenol Tab) 650 mg Q4H PRN PO 03/18/17 10:15 04/17/17 10:14 Ondansetron HCl (Zofran Inj) 4 mg Q6H PRN IV 03/18/17 10:15 04/17/17 10:14 Naloxone HCl (Narcan Inj) 0.1 mg PRN PRN IV 03/18/17 10:15 04/17/17 10:14 Senna/Docusate Sodium (Senokot S Tab) 2 tab HS PO 03/18/17 21:00 04/17/17 20:59 Polyethylene (Miralax Powder Packet) 17 gm DAILY PRN PO 03/18/17 10:15 04/17/17 10:14 Magnesium Hydroxide (Milk Of Magnesia Susp) 30 ml DAILY PRN PO 03/18/17 10:15 04/17/17 10:14 Bisacodyl (Dulcolax Supp) 10 mg DAILY PRN ND 03/18/17 10:15 04/17/17 10:14 Sodium Biphosphate/ Sodium Phosphate (Fleet Enema) 132 ml PRN PRN ND 03/18/17 10:15 Morphine Sulfate (MoRPHine SULFATE INJ) 3 mg Q3H PRN IV 03/18/17 10:15 04/01/17 10:14 Amitriptyline HCl (Elavil Tab) 10 mg HS PO 03/18/17 21:00 04/17/17 20:59 Amlodipine Besylate (Norvasc Tab) 10 mg DAILY PO 03/19/17 09:00 04/18/17 08:59 Atorvastatin Calcium (Lipitor Tab) 40 mg DAILY PO 03/19/17 09:00 04/18/17 08:59 Calcium/Vitamin D (Caltrate Plus Tab) 1 tab BID PO 03/18/17 21:00 04/17/17 20:59 Carvedilol (Coreg Tab) 3.125 mg BIDM PO 03/18/17 17:45 04/17/17 17:59 Citalopram Hydrobromide (celeXA TAB) 20 mg DAILY PO 03/19/17 09:00 04/18/17 08:59 Donepezil HCl (Aricept Tab) 10 mg DAILY PO 03/19/17 09:00 04/18/17 08:59 Lisinopril (Zestril Tab) 20 mg DAILY PO 03/19/17 09:00 04/18/17 08:59 Miscellaneous Information (Order Awaiting Action) 1 ea QS N/A 03/18/17 16:00 04/17/17 15:59 Insulin Aspart (novoLOG ASPART) SLIDING SCALE If C... ACHS SC 03/18/17 17:15 04/17/17 17:14 Glucose (Glucose 40% Gel) 15-30 GRAMS 15 GRAMS... UD PRN PO 03/18/17 10:30 04/17/17 10:29 Glucose (Glucose Chew Tab) 4-8 Tablets 4 Tabl... UD PRN PO 03/18/17 10:30 04/17/17 10:29 Dextrose (Dextrose 50% 50ML Syringe) 25-50ML OF 50% DW IV FOR... UD PRN IV 03/18/17 10:30 04/17/17 10:29 Glucagon (Glucagon Inj) 1 mg UD PRN SQ 03/18/17 10:30 04/17/17 10:29 Oxycodone/ Acetaminophen (Percocet 5-325mg Tab) 1 tab Q4H PRN PO 03/18/17 11:15 04/01/17 11:14 Review of Systems Constitutional: No fever, No chills, No sweats, No weight loss, No weakness, No fatigue, No problem reported Physical Exam Date Time Temp Pulse Resp B/P (MAP) Pulse Ox O2 Delivery O2 Flow Rate FiO2 03/18/17 13:37 37.2 80 16 128/62 98 Nasal Cannula 2.0 03/18/17 13:00 37.2 80 16 128/62 (84) 98 Nasal Cannula 2.0 03/18/17 12:36 92 18 98 03/18/17 12:31 106/53 03/18/17 12:06 95 26 97 03/18/17 12:01 104/59 03/18/17 12:00 97 104/59 96 Room Air 03/18/17 11:36 88 22 97 03/18/17 11:31 117/69 03/18/17 11:16 91 29 98 03/18/17 11:01 123/75 03/18/17 10:46 89 20 98 03/18/17 10:31 115/69 03/18/17 10:16 94 22 98 03/18/17 10:11 87 03/18/17 10:11 112/56 03/18/17 10:01 91/48 03/18/17 09:53 91 18 99 03/18/17 09:31 114/53 03/18/17 09:23 86 20 99 03/18/17 09:01 113/57 03/18/17 08:53 88 21 98 03/18/17 08:34 97 Nasal Cannula 2.0 03/18/17 08:31 115/52 03/18/17 08:23 81 17 94 03/18/17 08:18 130/77 03/18/17 07:06 88 25 92 03/18/17 07:01 120/48 03/18/17 07:00 85 25 03/18/17 06:28 72 03/18/17 06:00 36.4 83 18 136/63 93 Room Air General Appearance: WD/WN Neck: supple Respiratory/Chest: lungs clear Cardiovascular: regular rate, rhythm Abdomen/GI: normal bowel sounds Extremities/Musculoskelatal: + pertinent finding (pain with any attempted range of motion of the left hip left leg is slightly shortened and externally rotated.) Laboratory Results Last 24 Hours Test 03/18/17 06:10 03/18/17 06:20 03/18/17 11:50 03/18/17 13:30 White Blood Count 9.69 K/uL Red Blood Count 3.67 M/uL Hemoglobin 8.8 g/dL Hematocrit 29.8 % Mean Corpuscular Volume 81.2 fL Mean Corpuscular Hemoglobin 24.0 pg Mean Corpuscular Hemoglobin Concent 29.5 g/dl Platelet Count 377 K/uL Mean Platelet Volume 9.7 fL Neutrophils (%) (Auto) 83.4 % Lymphocytes (%) (Auto) 7.8 % Monocytes (%) (Auto) 6.8 % Eosinophils (%) (Auto) 1.4 % Basophils (%) (Auto) 0.4 % Neutrophils # (Auto) 8.07 K/uL Lymphocytes # (Auto) 0.76 K/uL Monocytes # (Auto) 0.66 K/uL Eosinophils # (Auto) 0.14 K/uL Basophils # (Auto) 0.04 K/uL RDW Standard Deviation 54.0 fL RDW Coefficient of Variation 18.1 % Immature Granulocyte % (Auto) 0.2 % Immature Granulocyte # (Auto) 0.02 K/uL Polychromasia 1+ Hypochromasia PRESENT Ovalocytes 1+ Prothrombin Time 84.2 SECONDS Prothromb Time International Ratio 7.2 Activated Partial Thromboplast Time 49.9 SECONDS Partial Thromboplastin Ratio 1.9 Sodium Level 144 mmol/L Potassium Level 3.4 mmol/L Chloride Level 113 mmol/L Carbon Dioxide Level 24 mmol/L Anion Gap 7.0 mmol/L Blood Urea Nitrogen 9 mg/dl Creatinine 0.53 mg/dl Est Creatinine Clear Calc Drug Dose 71.5 ml/min Estimated GFR () 105.4 Estimated GFR (Non- 90.9 BUN/Creatinine Ratio 17.8 Random Glucose 123 mg/dl Calcium Level 6.9 mg/dl Magnesium Level 1.5 mg/dl Troponin I < 0.015 ng/ml 25-Hydroxy Vitamin D Total 24.4 ng/ml Urine Color YELLOW Urine Appearance CLEAR Urine pH 5.0 Urine Specific [place] 1.018 Urine Protein NEG Urine Glucose (UA) NEG Urine Ketones NEG Urine Occult Blood NEG Urine Nitrite NEG Urine Bilirubin NEG Urine Urobilinogen NEG Urine Leukocyte Esterase NEG Bedside Glucose 128 mg/dl Assessment & Plan (1) Hip fracture, left Left basicervical neck fracture with extension into the greater trochanteric region. This point time patient has been admitted to the medical service, and will require surgical intervention. Patient will likely need a bipolar possible total hip arthroplasty possible IM nail. Unfortunately the patient cannot have surgery right now or today because her INR is 7.2. Vitamin K has been giving by the medical team and we'll keep a close eye on the INR when the INR is around 1.5 1.8 and okay with anesthesia we will certainly proceed with surgery. I discussed surgery and the plan with the patient and family who are present in the room today. We will keep her nothing by mouth each night .Thank you for consultation. Problem Qualifiers (1) Hip fracture, left: Encounter type: initial encounter Fracture type: closed Qualified Codes: S72.002A - Fracture of unspecified part of neck of left femur, initial encounter for closed fracture
[2017-03-18 15:06] VITALS: BP 110/63; PULSE 82; TEMP 37; O2SAT 98
[2017-03-18] MEDS: NAMENDA XR - ORDER AWAITING ACTION SCH (16:00)
[2017-03-18] MEDS: OXYCODONE/ACETAMINOPHEN 5-325 TAB PO PRN (16:52)
[2017-03-18] MEDS: INSULIN ASPART 100 UNITS/ML 3 ML PEN SC SCH ×2 (17:15→21:00)
[2017-03-18] MEDS ORDERED: NURSING VERBAL MED ORDER ONE ×2 (17:30)
[2017-03-18] MEDS ORDERED: KETOROLAC TROMETHAMINE 15 MG/ML VIAL ONE (17:44)
[2017-03-18] MEDS: CARVEDILOL 3.125 MG TAB PO SCH (17:51)
[2017-03-18 20:17] LABS: INR 1.6 (0.9-1.1); PROTHROMBIN TIME (PATIENT) 17.4 SECONDS (9.0-12.0)
[2017-03-18] MEDS: CALCIUM 600MG + VIT D 400 IU TAB PO SCH (21:11)
[2017-03-18] MEDS: DOCUSATE SODIUM/SENNA 50/8.6MG TAB PO SCH (21:12)
[2017-03-18] MEDS: AMITRIPTYLINE HCL 10 MG TAB PO SCH (21:12)
[2017-03-18 22:54] VITALS: BP 114/63; PULSE 83; TEMP 36.9; O2SAT 97
[2017-03-19] MEDS ORDERED: NURSING DECISION MEDICATION ORDER SCH
[2017-03-19] MEDS: OXYCODONE/ACETAMINOPHEN 5-325 TAB PO PRN ×3 (00:44→18:33)
[2017-03-19] MEDS ORDERED: LACTATED RINGER'S 1000ML 1,000 ML IV SCH (05:45)
[2017-03-19] MEDS: INSULIN ASPART 100 UNITS/ML 3 ML PEN SC SCH ×4 (06:00→21:15)
[2017-03-19 07:26] LABS: HEMATOCRIT 27.5 % (37-47); MEAN CELL VOLUME 81.1 fL (80-100); MEAN CORPUSCULAR HEMOGLOBIN 24.5 pg (25-34); MEAN CORPUSCULAR HGB CONC 30.2 g/dl (32-36); MEAN PLATELET VOLUME 9.1 fL (7.4-10.4); PLATELET COUNT 321 K/uL (130-400); RED BLOOD COUNT 3.39 M/uL (4.2-5.4); WHITE BLOOD COUNT 7.77 K/uL (4.8-10.8)
[2017-03-19 07:30] VITALS: BP 133/62; PULSE 90; TEMP 37.3; O2SAT 98
[2017-03-19 07:36] LABS: INR 1.3 (0.9-1.1); PROTHROMBIN TIME (PATIENT) 13.6 SECONDS (9.0-12.0)
[2017-03-19] MEDS: NAMENDA XR - ORDER AWAITING ACTION SCH ×2 (08:00)
[2017-03-19 08:04] LABS: CALCIUM 8.2 mg/dl (8.5-10.1); CREATININE 0.5 mg/dl (0.60-1.20); MAGNESIUM 1.9 mg/dl (1.8-2.4); POTASSIUM 4.8 mmol/L (3.5-5.1)
[2017-03-19] MEDS: ATORVASTATIN 40 MG TAB PO SCH (08:45)
[2017-03-19] MEDS: DONEPEZIL HCL 10 MG TAB PO SCH (08:45)
[2017-03-19] MEDS: AMLODIPINE BESYLATE 5 MG TAB PO SCH (08:45)
[2017-03-19] MEDS: CHOLECALCIFEROL 1000 INTER.UNIT TAB PO SCH (08:45)
[2017-03-19] MEDS: CITALOPRAM 20 MG TAB PO SCH (08:45)
[2017-03-19] MEDS: CARVEDILOL 3.125 MG TAB PO SCH ×2 (08:46→17:45)
[2017-03-19] MEDS: LISINOPRIL 20 MG TAB PO SCH (08:46)
[2017-03-19] MEDS: CALCIUM 600MG + VIT D 400 IU TAB PO SCH ×2 (08:46→20:38)
[2017-03-19] MEDS ORDERED: CYANOCOBALAMIN 1000 MCG/ML VIAL IM ONE (09:00)
[2017-03-19] MEDS: MoRPHine SULFATE 2 MG/ML CARP IV PRN ×2 (09:25→16:55)
--- NOTE | 2017-03-19 10:23 | Clinical Documentation Query ---
QUERY 1 OF [address] OBRIEN, In your clinical opinion is this patient being managed for: ( X ) Osteoporotic fracture left femur ( ) Not Agree ( ) Other explanation of clinical findings (Please Explain) ( ) Unable to determine (Please Define) ( ) Need to Discuss The medical record reflects the following clinical findings, treatment, and risk factors. Clinical Indicators: 76 yo female presenting after a ground level fall with a L femur fracture. Pt recently fractured her R humerus in a ground level fall earlier in February. Known to have osteoporosis. Vitamin D level 24.4, calcium 6.9 Treatment: outpatient treatment includes fosamax, Oscal, ortho consult Risk Factors: age, gender A pathologic fracture is defined as a break in a diseased bone due to weakening of the bone structure by pathologic processes (such as osteoporosis or bone tumors) without any identifiable trauma or following only minor trauma. Only the physician can make the determination that the fracture is out of proportion to the degree of trauma QUERY 2 OF 2 In your clinical opinion is this patient being managed for: ( X ) Chronic diastolic CHF due to valvular heart disease ( ) Not Agree ( ) Other explanation of clinical findings (Please Explain) ( ) Unable to determine (Please Define) ( ) Need to Discuss The medical record reflects the following clinical findings, treatment, and risk factors. Clinical Indicators: Review of ECHO from January 2017 showed EF of 60-64% Treatment: chronic meds include norvasc, coreg Risk Factors: age, HTN, DM, valvular heart disease Please clarify and document your clinical opinion in the progress notes and discharge summary. Terms such as "probable", "suspected", "likely", "questionable", "possible", or "still to be ruled out" are acceptable. IF IN AGREEMENT, YOU MUST DOCUMENT ABOVE DIAGNOSTIC STATEMENT IN DAILY PROGRESS NOTES AND DISCHARGE SUMMARY. This document is not part of the patient's record. Thank You, Brittney Sheffield, RN [phone]
[2017-03-19] MEDS ORDERED: ONDANSETRON INJ 2 MG/ML 2 ML VIAL IV PRN ×2 (12:15→15:45)
[2017-03-19] MEDS ORDERED: ATROPINE SULFATE 0.1 MG/ML 5ML SYR IV PRN (12:15)
[2017-03-19] MEDS ORDERED: EpHEDrine SULFATE INJ 50 MG/ML AMP IV PRN (12:15)
[2017-03-19] MEDS ORDERED: FENTANYL CITRATE INJ 50 MCG/1 ML 2 ML VIAL IV PRN (12:15)
[2017-03-19] MEDS ORDERED: CEFAZOLIN SOD 1000MG/55 ML D5W IV ONE (12:27)
[2017-03-19] MEDS ORDERED: CEFAZOLIN IV 1,000 MG in DEXTROSE 5% 50ML 50 ML IV SCH (12:30)
[2017-03-19] MEDS ORDERED: NURSING VERBAL MED ORDER STA (12:38)
[2017-03-19] MEDS ORDERED: FENTANYL CITRATE INJ 50 MCG/1 ML 2 ML VIAL ONE ×2 (13:12→16:05)
[2017-03-19] MEDS ORDERED: MIDAZOLAM HCL 1 MG/ML 2ML VIAL ONE (13:12)
[2017-03-19] MEDS ORDERED: BUPIVACAINE/EPINEPHRINE 0.5% MPF 1:200,000 10 ML VIAL ONE (13:25)
[2017-03-19] MEDS: MEMANTINE HCL 28 MG PO SCH (14:00)
[2017-03-19] MEDS ORDERED: PROPOFOL IV EMULSION 10 MG/ML 20 ML VIAL IV ONE (14:43)
[2017-03-19] MEDS ORDERED: ROCURONIUM BROMIDE 10 MG/ML 5 ML VIAL IV ONE (14:43)
[2017-03-19] MEDS ORDERED: LIDOCAINE HCL 2% 2 ML VIAL (20MG/ML) ONE (14:43)
--- NOTE | 2017-03-19 15:39 | DIAGNOSTIC IMAGING REPORT ---
LEFT HIP OR FILMS CLINICAL HISTORY: LEFT TROCHNAIL. FLUOROSCOPY TIME: 1 minute and 2 seconds. FINDINGS: 3 intraoperative fluoroscopic spot images of the left hip. There is a short proximal intramedullary storm within the left femur with an interlocking femoral neck pin. This traverses the intertrochanteric fracture. The alignment is near-anatomic. The hardware is intact. IMPRESSION: Fluoroscopy provided for internal fixation of the left intertrochanteric fracture. Electronically signed by: Sonny Sotomayor M.D. 03/19/2017 3:38 PM Dictated Date/Time: 03/19/2017 3:37 PM
[2017-03-19] MEDS: LACTATED RINGER'S 1000ML 1,000 ML IV SCH (15:40)
--- NOTE | 2017-03-19 15:40 | [facility] Operative Report ---
Operative Report Operative Date Mar 19, 2017. Pre-Operative Diagnosis Acute Left Intertrochangeric Hip Fracture Post-Operative Diagnosis Acute Left Intertrochangeric Hip Fracture Procedure(s) Performed Open Reduction Internal Fixation, Left Hip Troch Nail Surgeon Dr. Luis Moreland Batting Machine Operator Surgeon(s) Nick Mc PA-C Estimated Blood Loss 50mL Findings As above Specimens No specimens Drains none Anesthesia Gen. Complication(s) None Disposition Recovery Room / PACU Indications 76-year-old female sustained a fall to left hip. X-rays demonstrated displaced left intertrochanteric fracture. Once she is cleared medically she presents for operative fixation left hip. Description of Procedure Risks benefits and alternatives of surgery including but not limited to infection, DVT, PE, pain, stiffness, need for surgery, damage to blood vessels, damage to nerves or risks of anesthesia, were discussed with the patient and her family and they wished to proceed. Patient was identified in the laterality was confirmed and marked. They received a preoperative antibiotic. The patient was transferred to the fracture table. The operative limb was placed in traction and the well leg was placed in a well leg watson that was well-padded. The arms were well-padded and placed out of the way of the surgical field. I confirmed reduction of the fracture with fluoroscopy with the patient's fracture table and made adjustments to fracture table alignment is necessary to reduce the fracture appropriately. The hip was then prepped and draped in the usual standard manner with ChloraPrep. I made a longitudinal incision proximal to the greater trochanter. I sharply incised through the skin and then used Bovie electrocautery to achieve hemostasis. I incised through the fascia and then bluntly dissected down to the tip of the greater trochanter. Under fluoroscopic guidance I placed a guide pin into the greater trochanter and ensured proper placement on both AP and lateral fluoroscopy views. Once I was satisfied with the position of the guide. I advanced this distally. I then overreamed with the 17 mm proximal reamer. I then placed a Synthes trochanteric fixation nail into position. The size of the nail was a short nail. Then I placed the guide arm onto the nail insertion device made a stab incision more distally and then placed the drill guide for the helical blade. I adjusted the position of the nail as necessary to ensure that the guidepin was center center in the femoral head. Once I was satisfied with the position of the pin advanced it to the appropriate position of the femoral head. I then measured and then reamed the lateral cortex and then reamed down into the femoral head. I then inserted a size [address] I then locked the set screw proximally and then compressed the fracture. Then through a stab incision I placed a interlocking screw through the drill guide. I confirmed hardware placement and maintenance of reduction on AP and lateral fluoroscopy views. Wounds were then thoroughly irrigated. The fascia was closed with interrupted #1 Vicryl suture. Subcutaneous tissues closed with interrupted 2-0 Vicryl suture and the skin with jeanette. Sterile dressings applied. All needle and sponge counts were correct at the end of the procedure the patient was transferred to the PACU in stable condition without apparent complication. I attest to the content of the Intraoperative Record and any orders documented therein. Any exceptions are noted below.
[2017-03-19] MEDS ORDERED: COUGH DROP (SUGAR FREE) LOZ 24 LOZ/1 BOX PO PRN (15:45)
[2017-03-19] MEDS ORDERED: MAGNESIUM HYDROXIDE SUSP 30 ML UDC PO PRN (15:45)
[2017-03-19] MEDS ORDERED: ACETAMINOPHEN 325 MG TAB PO PRN (15:45)
--- NOTE | 2017-03-19 16:40 | Anesthesiology Progress Note ---
Anesthesia Post Op Note Date & Time Mar 19, 2017 at 16:40 Vital Signs Pain Intensity: 3 Vital Signs Past 12 Hours Date Time Temp Pulse Resp B/P (MAP) Pulse Ox O2 Delivery O2 Flow Rate FiO2 03/19/17 16:30 36.4 99 16 116/74 98 Nasal Cannula 2 03/19/17 16:20 36.4 99 16 127/55 97 Oxymask 10 03/19/17 16:10 101 16 128/72 97 Oxymask 10 03/19/17 16:00 96 16 113/57 100 Oxymask 10 03/19/17 15:53 36.2 97 16 124/56 100 Oxymask 10 03/19/17 08:00 Nasal Cannula 2.0 03/19/17 07:30 37.3 90 20 133/62 (85) 98 Nasal Cannula 2.0 Notes Mental Status: alert / awake / arousable, participated in evaluation Pt Amnestic to Procedure: Yes Nausea / Vomiting: adequately controlled Pain: adequately controlled Airway Patency, RR, SpO2: stable & adequate BP & HR: stable & adequate Hydration State: stable & adequate Anesthetic Complications: no major complications apparent
[2017-03-19 16:45] VITALS: BP 123/51; PULSE 103; TEMP 37.3; O2SAT 92
[2017-03-19 17:15] VITALS: BP 126/57; PULSE 101; TEMP 36.9; O2SAT 94
[2017-03-19 17:45] VITALS: BP 134/73; PULSE 99; TEMP 37.1; O2SAT 97
[2017-03-19] MEDS ORDERED: NURSING VERBAL MED ORDER ONE ×3 (18:00→21:15)
[2017-03-19 18:45] VITALS: BP 98/51; PULSE 97; TEMP 37.6; O2SAT 99
--- NOTE | 2017-03-19 19:10 | Progress Note ---
Subjective Date of Service: Mar 19, 2017. Subjective Pt evaluation today including: conversation w/ patient, physical exam, lab review, review of studies, review of inpatient medication list Saw/examined the patient in room 362 patient c/o R hip pain, post-operatively, received some morphine earlier no fevers/chills Problem List Medical Problems: (1) Fracture of humeral head, right, closed Status: Acute (2) Hypoxia Status: Acute (3) Mediastinal lymphadenopathy Status: Acute (4) Thyroid mass Status: Acute Review of Systems Constitutional: No fever, No chills Respiratory: No cough, No sputum, No shortness of breath Cardiac: No chest pain Abdomen: No pain, No nausea, No vomiting, No diarrhea Musculoskeletal: + joint pain (R hip) Medications Current Inpatient Medications Medications (Trade) Dose Ordered Sig/Ubaldo Route Start Time Stop Time Status Last Admin Dose Admin Naloxone HCl (Narcan Inj) 0.1 mg PRN PRN IV 03/18/17 10:15 04/17/17 10:14 Senna/Docusate Sodium (Senokot S Tab) 2 tab HS PO 03/18/17 21:00 04/17/17 20:59 03/18/17 21:12 2 TAB Polyethylene (Miralax Powder Packet) 17 gm DAILY PRN PO 03/18/17 10:15 04/17/17 10:14 Bisacodyl (Dulcolax Supp) 10 mg DAILY PRN NE 03/18/17 10:15 04/17/17 10:14 Sodium Biphosphate/ Sodium Phosphate (Fleet Enema) 132 ml PRN PRN NE 03/18/17 10:15 Amitriptyline HCl (Elavil Tab) 10 mg HS PO 03/18/17 21:00 04/17/17 20:59 03/18/17 21:12 10 MG Amlodipine Besylate (Norvasc Tab) 10 mg DAILY PO 03/19/17 09:00 04/18/17 08:59 03/19/17 08:45 10 MG Atorvastatin Calcium (Lipitor Tab) 40 mg DAILY PO 03/19/17 09:00 04/18/17 08:59 03/19/17 08:45 40 MG Calcium/Vitamin D (Caltrate Plus Tab) 1 tab BID PO 03/18/17 21:00 04/17/17 20:59 03/19/17 08:46 1 TAB Carvedilol (Coreg Tab) 3.125 mg BIDM PO 03/18/17 17:45 04/17/17 17:59 03/19/17 17:45 3.125 MG Citalopram Hydrobromide (celeXA TAB) 20 mg DAILY PO 03/19/17 09:00 04/18/17 08:59 03/19/17 08:45 20 MG Donepezil HCl (Aricept Tab) 10 mg DAILY PO 03/19/17 09:00 04/18/17 08:59 03/19/17 08:45 10 MG Lisinopril (Zestril Tab) 20 mg DAILY PO 03/19/17 09:00 04/18/17 08:59 03/19/17 08:46 20 MG Glucose (Glucose 40% Gel) 15-30 GRAMS 15 GRAMS... UD PRN PO 03/18/17 10:30 04/17/17 10:29 Glucose (Glucose Chew Tab) 4-8 Tablets 4 Tabl... UD PRN PO 03/18/17 10:30 04/17/17 10:29 Dextrose (Dextrose 50% 50ML Syringe) 25-50ML OF 50% DW IV FOR... UD PRN IV 03/18/17 10:30 04/17/17 10:29 Glucagon (Glucagon Inj) 1 mg UD PRN SQ 03/18/17 10:30 04/17/17 10:29 Cholecalciferol (Vitamin D Tab) 2,000 inter.unit QAM PO 03/19/17 09:00 04/18/17 08:59 03/19/17 08:45 2,000 INTER.UNIT Morphine Sulfate (MoRPHine SULFATE INJ) 2 mg Q2H PRN IV 03/18/17 18:00 04/01/17 17:59 03/19/17 16:55 2 MG Cyanocobalamin (Vitamin B-12 Tab) 500 mcg DAILY PO 03/20/17 09:00 04/19/17 08:59 Insulin Aspart (novoLOG ASPART) SLIDING SCALE If C... Q6 SC 03/19/17 06:00 04/18/17 05:59 Lactated Ringer's 1,000 ml @ 50 mls/hr Q20H IV 03/19/17 05:45 04/18/17 05:44 03/19/17 06:00 50 MLS/HR Cefazolin Sodium 1000 mg/Dextrose 55 ml @ 110 mls/hr UD IV 03/19/17 12:30 03/20/17 12:29 Lactated Ringer's 1,000 ml @ 75 mls/hr [id number] IV 03/19/17 15:40 04/18/17 15:39 03/19/17 15:40 75 MLS/HR Cefazolin Sodium 1000 mg/Dextrose 55 ml @ 100 mls/hr Q8H IV 03/19/17 20:00 03/20/17 04:32 Ondansetron HCl (Zofran Inj) 4 mg Q6H PRN IV 03/19/17 15:45 04/18/17 15:44 Acetaminophen (Tylenol Tab) 650 mg Q6H PRN PO 03/19/17 15:45 04/18/17 15:44 Menthol (Nice Angelina) 1 angelina Q2H PRN PO 03/19/17 15:45 04/18/17 15:44 Polyethylene (Miralax Powder Packet) 17 gm Q6 PO 03/21/17 06:00 04/20/17 05:59 Magnesium Hydroxide (Milk Of Magnesia Susp) 30 ml DAILY PRN PO 03/19/17 15:45 04/18/17 15:44 Docusate Sodium (coLACE CAP) 100 mg BID PO 03/19/17 21:00 04/18/17 20:59 Oxycodone/ Acetaminophen (Percocet 5-325mg Tab) `1-2 TABS FOR PAIN `1 TAB... Q4H PRN PO 03/19/17 18:15 04/02/17 18:14 03/19/17 18:33 2 TAB Objective Vital Signs Date Time Temp Pulse Resp B/P (MAP) Pulse Ox O2 Delivery O2 Flow Rate FiO2 03/19/17 17:45 37.1 99 18 134/73 (93) 97 Nasal Cannula 2.0 03/19/17 17:15 36.9 101 16 126/57 (80) 94 03/19/17 16:45 37.3 103 16 123/51 (75) 92 Nasal Cannula 2.0 03/19/17 16:30 36.4 99 16 116/74 98 Nasal Cannula 2 03/19/17 16:20 36.4 99 16 127/55 97 Oxymask 10 03/19/17 16:10 101 16 128/72 97 Oxymask 10 03/19/17 16:00 96 16 113/57 100 Oxymask 10 03/19/17 15:53 36.2 97 16 124/56 100 Oxymask 10 03/19/17 08:00 Nasal Cannula 2.0 03/19/17 07:30 37.3 90 20 133/62 (85) 98 Nasal Cannula 2.0 03/19/17 00:30 Nasal Cannula 2.0 03/18/17 22:54 36.9 83 16 114/63 (80) 97 Nasal Cannula 2.0 Physical Exam General Appearance: + mild distress (secondary to pain) Respiratory/Chest: lungs clear, normal breath sounds, no respiratory distress, no accessory muscle use Cardiovascular: no murmur, + tachycardia, + irregularly irregular Abdomen: normal bowel sounds, non tender, soft Extremities: normal inspection, no pedal edema Neurologic/Psychiatric: no motor/sensory deficits, alert, normal mood/affect Laboratory Results Last 24 Hours Test 03/18/17 19:49 03/18/17 20:25 03/18/17 23:58 03/19/17 06:00 Prothrombin Time 17.4 SECONDS Prothromb Time International Ratio 1.6 Vitamin B12 Level 189 pg/mL Folate > 24.00 ng/mL Bedside Glucose 144 mg/dl 151 mg/dl 112 mg/dl Test 03/19/17 07:12 03/19/17 12:07 03/19/17 16:03 03/19/17 17:00 White Blood Count 7.77 K/uL Red Blood Count 3.39 M/uL Hemoglobin 8.3 g/dL Hematocrit 27.5 % Mean Corpuscular Volume 81.1 fL Mean Corpuscular Hemoglobin 24.5 pg Mean Corpuscular Hemoglobin Concent 30.2 g/dl RDW Standard Deviation 53.6 fL RDW Coefficient of Variation 18.0 % Platelet Count 321 K/uL Mean Platelet Volume 9.1 fL Prothrombin Time 13.6 SECONDS Prothromb Time International Ratio 1.3 Sodium Level 144 mmol/L Potassium Level 4.8 mmol/L Chloride Level 111 mmol/L Carbon Dioxide Level 27 mmol/L Anion Gap 6.0 mmol/L Blood Urea Nitrogen 10 mg/dl Creatinine 0.50 mg/dl Est Creatinine Clear Calc Drug Dose 75.7 ml/min Estimated GFR () 107.4 Estimated GFR (Non- 92.7 BUN/Creatinine Ratio 20.0 Random Glucose 119 mg/dl Calcium Level 8.2 mg/dl Magnesium Level 1.9 mg/dl Bedside Glucose 108 mg/dl 114 mg/dl 123 mg/dl Assessment and Plan This is a 76 year old female with a PMH of paroxysmal A. fib, heart failure secondary to valvular heart disease s/p TAVR, DM2, HTN, HLD, DESOUZA, osteoporosis presents secondary to mechanical fall and L hip fracture Osteoporotic L Hip Fracture appreciate ortho input s/p repair POD #0 doing well post-operatively in some pain, given IV morphine activity level and DVT ppx as per ortho will monitor labs in AM Chronic Anemia monitor for blood loss had recent shoulder surgery as well transfuse if Hgb less than 8 Paroxysmal A. Fib currently rate is elevated slightly into the 100s due to pain continue b-michelle restart Coumadin as per ortho pain medications HTN BP controlled, continue amlodipine, lisinopril, and carvedilol DM hgb a1c 7.2 11/2016 hold oral agents and utilize SSI while hospitalized CHRONIC CHF DUE TO VALVULAR DISEASE examines to be euvolemic not on routine diuretics ANXIETY, DEMENTIA continue home meds RECENT RIGHT HUMERUS FRACTURE s/p right shoulder arthroplasty 03/07 DVT ppx as per ortho FULL CODE
[2017-03-19 19:45] VITALS: BP 113/68; PULSE 99; TEMP 36.9; O2SAT 98
[2017-03-19] MEDS: AMITRIPTYLINE HCL 10 MG TAB PO SCH (20:37)
[2017-03-19] MEDS: DOCUSATE SODIUM/SENNA 50/8.6MG TAB PO SCH (20:37)
[2017-03-19] MEDS: CEFAZOLIN IV 1,000 MG in DEXTROSE 5% 50ML 50 ML IV SCH (20:39)
[2017-03-19] MEDS: DOCUSATE SODIUM 100 MG CAP PO SCH (20:41)
[2017-03-20] VITALS (12 sets, daily range): BP systolic 119–146; BP diastolic 60–74; PULSE 81–97; TEMP 36.7–37.4; O2SAT 94–98
[2017-03-20] MEDS: OXYCODONE/ACETAMINOPHEN 5-325 TAB PO PRN ×2 (03:50→15:32)
[2017-03-20] MEDS: CEFAZOLIN IV 1,000 MG in DEXTROSE 5% 50ML 50 ML IV SCH (03:50)
[2017-03-20] MEDS: LACTATED RINGER'S 1000ML 1,000 ML IV SCH ×2 (04:55→19:54)
[2017-03-20 07:44] LABS: HEMATOCRIT 25.1 % (37-47); MEAN CORPUSCULAR HEMOGLOBIN 24.2 pg (25-34); MEAN CORPUSCULAR HGB CONC 29.9 g/dl (32-36); MEAN PLATELET VOLUME 9.3 fL (7.4-10.4); PLATELET COUNT 310 K/uL (130-400); WHITE BLOOD COUNT 9.86 K/uL (4.8-10.8)
[2017-03-20] MEDS ORDERED: FUROSEMIDE INJ 20 MG in SYRINGE 0 ML IV SCH (08:00)
[2017-03-20] MEDS: CARVEDILOL 3.125 MG TAB PO SCH ×2 (08:02→19:53)
[2017-03-20] MEDS: CALCIUM 600MG + VIT D 400 IU TAB PO SCH ×2 (08:03→22:04)
[2017-03-20] MEDS: DOCUSATE SODIUM 100 MG CAP PO SCH ×2 (08:03→22:03)
[2017-03-20] MEDS: CHOLECALCIFEROL 1000 INTER.UNIT TAB PO SCH (08:03)
[2017-03-20] MEDS: ATORVASTATIN 40 MG TAB PO SCH (08:04)
[2017-03-20] MEDS: CITALOPRAM 20 MG TAB PO SCH (08:04)
[2017-03-20] MEDS: LISINOPRIL 20 MG TAB PO SCH (08:04)
[2017-03-20] MEDS: CYANOCOBALAMIN 500 MCG TAB (VIT B-12) PO SCH (08:04)
[2017-03-20] MEDS: AMLODIPINE BESYLATE 5 MG TAB PO SCH (08:04)
[2017-03-20] MEDS: DONEPEZIL HCL 10 MG TAB PO SCH (08:05)
[2017-03-20] MEDS: MEMANTINE HCL 28 MG PO SCH (08:05)
[2017-03-20 08:11] LABS: BUN/CREATININE RATIO 21.5 (10-20); CALCIUM 8.7 mg/dl (8.5-10.1); CREATININE 0.53 mg/dl (0.60-1.20); MAGNESIUM 1.5 mg/dl (1.8-2.4); POTASSIUM 4.9 mmol/L (3.5-5.1)
--- NOTE | 2017-03-20 08:55 | Anesthesiology Progress Note ---
Anesthesia Post Op Note Date & Time Mar 20, 2017 at 08:55 Vital Signs Vital Signs Past 12 Hours Date Time Temp Pulse Resp B/P (MAP) Pulse Ox O2 Delivery O2 Flow Rate FiO2 03/20/17 08:46 36.9 85 20 136/70 03/20/17 08:30 36.9 82 20 125/68 03/20/17 07:37 94 Nasal Cannula 1.0 03/20/17 06:59 36.7 82 18 135/60 (85) 97 Room Air 03/20/17 03:16 37.3 97 16 125/66 (85) 95 Nasal Cannula 1.0 03/20/17 00:08 36.9 87 16 126/66 (86) 95 Nasal Cannula 1.0 03/19/17 23:55 Nasal Cannula 1.0 Notes Mental Status: alert / awake / arousable, participated in evaluation Pt Amnestic to Procedure: Yes Nausea / Vomiting: adequately controlled Pain: adequately controlled Airway Patency, RR, SpO2: stable & adequate BP & HR: stable & adequate Hydration State: stable & adequate Anesthetic Complications: no major complications apparent
[2017-03-20] MEDS: INSULIN ASPART 100 UNITS/ML 3 ML PEN SC SCH ×4 (08:56→21:00)
--- NOTE | 2017-03-20 09:34 | Orthopedic Progress Note ---
Orthopedic Progress Note Date of Service Mar 20, 2017. Subjective Post OP Day: 1 (Open Reduction Internal Fixation, Left Hip Troch Nail) Reports: feeling well, pain controlled w PO medications, Denies: complaints, chest pain, SOB, nausea / vomiting, light headedness, calf pain Objective calves soft nontender, N/V intact, dressing C/D/I, A&O x3, toes mobile incision to right shoulder healing well, currently in a sling. NVDI Date Time Temp Pulse Resp B/P (MAP) Pulse Ox O2 Delivery O2 Flow Rate FiO2 03/20/17 09:00 36.7 97 18 125/66 03/20/17 08:46 36.9 85 20 136/70 03/20/17 08:30 36.9 82 20 125/68 03/20/17 07:37 94 Nasal Cannula 1.0 03/20/17 06:59 36.7 82 18 135/60 (85) 97 Room Air 03/20/17 03:16 37.3 97 16 125/66 (85) 95 Nasal Cannula 1.0 03/20/17 00:08 36.9 87 16 126/66 (86) 95 Nasal Cannula 1.0 03/19/17 23:55 Nasal Cannula 1.0 03/19/17 19:45 36.9 99 17 113/68 (83) 98 Nasal Cannula 2.0 03/19/17 18:45 37.6 97 17 98/51 (67) 99 Nasal Cannula 2.0 03/19/17 17:45 37.1 99 18 134/73 (93) 97 Nasal Cannula 2.0 03/19/17 17:15 36.9 101 16 126/57 (80) 94 03/19/17 16:45 37.3 103 16 123/51 (75) 92 Nasal Cannula 2.0 03/19/17 16:45 Nasal Cannula 2.0 03/19/17 16:45 Nasal Cannula 2.0 03/19/17 16:30 36.4 99 16 116/74 98 Nasal Cannula 2 03/19/17 16:20 36.4 99 16 127/55 97 Oxymask 10 03/19/17 16:10 101 16 128/72 97 Oxymask 10 03/19/17 16:00 96 16 113/57 100 Oxymask 10 03/19/17 15:53 36.2 97 16 124/56 100 Oxymask 10 Laboratory Results 24 Hours: Test 03/20/17 07:14 Hematocrit 25.1 % Hemoglobin 7.5 g/dL Assessment & Plan Assessment: POD #1 s/p Open Reduction Internal Fixation, Left Hip Troch Nail POD #13 s/p reverse TSA Right shoulder Past Medical History including: paroxysmal A. fib, heart failure secondary to valvular heart disease s/p TAVR, DM2, HTN, HLD, DESOUZA, osteoporosis Chronic Anemia monitor for blood loss had recent shoulder surgery as well Ordered 1 unit for transfusion today by medical team. Paroxysmal A. Fib per medicine, will cont b-michelle HTN BP controlled, continue amlodipine, lisinopril, and carvedilol DM hold oral agents and utilize SSI while hospitalized (1) Hip fracture, left Acute Discharge Planning Discharge Planning: uncertain
[2017-03-20] MEDS ORDERED: MAGNESIUM SULFATE 1GM / D5W 1 GM in PREMIXED IN D5W 100 ML IV SCH (10:00)
[2017-03-20 10:36] LABS: INR 1.4 (0.9-1.1); PROTHROMBIN TIME (PATIENT) 14.7 SECONDS (9.0-12.0)
[2017-03-20] MEDS: MAGNESIUM SULFATE 1GM / D5W 1 GM in PREMIXED IN D5W 100 ML IV SCH ×2 (11:58→13:32)
[2017-03-20] MEDS: MoRPHine SULFATE 2 MG/ML CARP IV PRN (12:04)
[2017-03-20 13:36] LABS: HEMATOCRIT 30.9 % (37-47)
[2017-03-20] MEDS ORDERED: WARFARIN SOD 2 MG TAB PO SCH (16:00)
--- NOTE | 2017-03-20 16:18 | Consultant Recommendations ---
Medicine Worker Recommendations Date of Service Mar 20, 2017. Medicine Worker Recommendations [facility] [place] DISCHARGE INSTRUCTIONS: HIP FRACTURE SELF CARE INSTRUCTIONS: A. You are to ambulate with a walker or crutches for approximately 6 weeks. B. You are WEIGHT BEARING TOLERATED on your operative lower extremity for at least 6 weeks. C. Wear low heeled shoes with non-slip soles D. Be sure that your floors are free of things that could trip you throw rugs, electrical cords, and small objects. Avoid wet and waxed floors, especially with crutches/walker/cane. E. Try to walk several times a day with rest periods between. F. You may shower 48 hours after surgery and get the incision area wet, but DO NOT soak or submerge incision area in water. (No baths, swimming pools, hot tubs ) G. You may have a large, band-aid like dressing over your incision (Aquacel). This will remain on your incision for 7 days, and then can be removed. You CAN shower with this on. If incision is leaking through the dressing, please call the office . H. Do NOT apply soap or any ointment/lotions directly over incision. I. You may use ice as needed to operative site. SPECIAL CARE INSTRUCTIONS: VERY IMPORTANT TO READ AND REVIEW A. You may be at risk for phlebitis or blood clots. a. Wear surgical stockings (KEVIN hose) for 2 weeks after surgery to improve circulation and reduce swelling. b. You are on Coumadin. Take as directed by your Doctor. This is your blood thinner. c. If you are on Coumadin- you will have daily/weekly blood work to monitor your levels. This will be done by either your family physician/ acid operator (if you are on Coumadin chronically) versus your orthopedic surgeon. Expect a phone call the day of or the day after your blood work is drawn to adjust your dose accordingly. B. There are a few signs you need to watch for after you are home. Call [facility] [place] at [phone] if you experience any of the following: a. If you have a temperature of 101 degrees or higher. b. Sudden increase in pain in your hip not relieved by rest or pain medication. c. Any fluid or drainage from the incision; redness of the incision. d. Shortness of breath or chest pain. C. Call your physician if: a. Temperature is greater than 101 degrees (F). b. Pain is not relieved by prescribed pain medications. c. Increase drainage or redness from incision. d. Unanswered questions or concerns. D. Pain Medication: a. You will be prescribed pain medication upon discharge that should last till your first post-operative appointment. b. If you experience nausea and/or skin rash, discontinue this medication and contact our office for an alternative medication. c. Caution- narcotic pain medication can cause constipation. FOLLOW UP VISIT: Please call [facility] [place] at [phone] to schedule a follow up appointment 10-14 days from the date of your surgery date.
--- NOTE | 2017-03-20 16:26 | Progress Note ---
Subjective Date of Service: Mar 20, 2017. Subjective Pt evaluation today including: conversation w/ patient, physical exam, lab review, review of studies, review of inpatient medication list Saw/examined the patient in room 362 patient c/o pain at the L hip, improves with pain medications Denies shortness of breath/chest pain, denies fevers/chills Problem List Medical Problems: (1) Fracture of humeral head, right, closed Status: Acute (2) Hypoxia Status: Acute (3) Mediastinal lymphadenopathy Status: Acute (4) Thyroid mass Status: Acute Review of Systems Constitutional: No fever, No chills Respiratory: No cough, No sputum, No shortness of breath Cardiac: No chest pain Abdomen: No pain, No nausea, No vomiting, No diarrhea, No constipation, No GI bleeding Heme: No abnormal bleeding/bruising Medications Current Inpatient Medications Medications (Trade) Dose Ordered Sig/Ubaldo Route Start Time Stop Time Status Last Admin Dose Admin Naloxone HCl (Narcan Inj) 0.1 mg PRN PRN IV 03/18/17 10:15 04/17/17 10:14 Senna/Docusate Sodium (Senokot S Tab) 2 tab HS PO 03/18/17 21:00 04/17/17 20:59 03/19/17 20:37 2 TAB Polyethylene (Miralax Powder Packet) 17 gm DAILY PRN PO 03/18/17 10:15 04/17/17 10:14 Bisacodyl (Dulcolax Supp) 10 mg DAILY PRN ME 03/18/17 10:15 04/17/17 10:14 Sodium Biphosphate/ Sodium Phosphate (Fleet Enema) 132 ml PRN PRN ME 03/18/17 10:15 Amitriptyline HCl (Elavil Tab) 10 mg HS PO 03/18/17 21:00 04/17/17 20:59 03/19/17 20:37 10 MG Amlodipine Besylate (Norvasc Tab) 10 mg DAILY PO 03/19/17 09:00 04/18/17 08:59 03/20/17 08:04 10 MG Atorvastatin Calcium (Lipitor Tab) 40 mg DAILY PO 03/19/17 09:00 04/18/17 08:59 03/20/17 08:04 40 MG Calcium/Vitamin D (Caltrate Plus Tab) 1 tab BID PO 03/18/17 21:00 04/17/17 20:59 03/20/17 08:03 1 TAB Carvedilol (Coreg Tab) 3.125 mg BIDM PO 03/18/17 17:45 04/17/17 17:59 03/20/17 08:02 3.125 MG Citalopram Hydrobromide (celeXA TAB) 20 mg DAILY PO 03/19/17 09:00 04/18/17 08:59 03/20/17 08:04 20 MG Donepezil HCl (Aricept Tab) 10 mg DAILY PO 03/19/17 09:00 04/18/17 08:59 03/20/17 08:05 10 MG Lisinopril (Zestril Tab) 20 mg DAILY PO 03/19/17 09:00 04/18/17 08:59 03/20/17 08:04 20 MG Glucose (Glucose 40% Gel) 15-30 GRAMS 15 GRAMS... UD PRN PO 03/18/17 10:30 04/17/17 10:29 Glucose (Glucose Chew Tab) 4-8 Tablets 4 Tabl... UD PRN PO 03/18/17 10:30 04/17/17 10:29 Dextrose (Dextrose 50% 50ML Syringe) 25-50ML OF 50% DW IV FOR... UD PRN IV 03/18/17 10:30 04/17/17 10:29 Glucagon (Glucagon Inj) 1 mg UD PRN SQ 03/18/17 10:30 04/17/17 10:29 Cholecalciferol (Vitamin D Tab) 2,000 inter.unit QAM PO 03/19/17 09:00 04/18/17 08:59 03/20/17 08:03 2,000 INTER.UNIT Morphine Sulfate (MoRPHine SULFATE INJ) 2 mg Q2H PRN IV 03/18/17 18:00 04/01/17 17:59 03/20/17 12:04 2 MG Cyanocobalamin (Vitamin B-12 Tab) 500 mcg DAILY PO 03/20/17 09:00 04/19/17 08:59 03/20/17 08:04 500 MCG Lactated Ringer's 1,000 ml @ 75 mls/hr [id number] IV 03/19/17 15:40 04/18/17 15:39 03/20/17 04:55 75 MLS/HR Ondansetron HCl (Zofran Inj) 4 mg Q6H PRN IV 03/19/17 15:45 04/18/17 15:44 03/20/17 13:48 4 MG Acetaminophen (Tylenol Tab) 650 mg Q6H PRN PO 03/19/17 15:45 04/18/17 15:44 Menthol (Nice Angelina) 1 angelina Q2H PRN PO 03/19/17 15:45 04/18/17 15:44 Polyethylene (Miralax Powder Packet) 17 gm Q6 PO 03/21/17 06:00 04/20/17 05:59 Magnesium Hydroxide (Milk Of Magnesia Susp) 30 ml DAILY PRN PO 03/19/17 15:45 04/18/17 15:44 Docusate Sodium (coLACE CAP) 100 mg BID PO 03/19/17 21:00 04/18/17 20:59 03/20/17 08:03 100 MG Oxycodone/ Acetaminophen (Percocet 5-325mg Tab) `1-2 TABS FOR PAIN `1 TAB... Q4H PRN PO 03/19/17 18:15 04/02/17 18:14 03/20/17 15:32 2 TAB Insulin Aspart (novoLOG ASPART) SLIDING SCALE If C... ACHS SC 03/19/17 21:15 04/18/17 21:14 03/20/17 12:59 1 UNITS Furosemide 20 mg/ Syringe 2 ml @ 4 mls/min TODAY@0800 IV 03/20/17 08:00 03/20/17 18:00 03/20/17 11:58 4 MLS/MIN Objective Vital Signs Date Time Temp Pulse Resp B/P (MAP) Pulse Ox O2 Delivery O2 Flow Rate FiO2 03/20/17 15:30 Nasal Cannula 1.0 03/20/17 15:17 37.4 90 16 146/61 (89) 97 Nasal Cannula 1.0 03/20/17 11:25 37.0 95 120/71 98 03/20/17 10:00 37.0 91 127/72 98 03/20/17 09:31 36.9 90 119/65 98 03/20/17 09:00 36.7 97 18 125/66 03/20/17 08:46 36.9 85 20 136/70 03/20/17 08:30 36.9 82 20 125/68 03/20/17 07:37 94 Nasal Cannula 1.0 03/20/17 06:59 36.7 82 18 135/60 (85) 97 Room Air 03/20/17 03:16 37.3 97 16 125/66 (85) 95 Nasal Cannula 1.0 03/20/17 00:08 36.9 87 16 126/66 (86) 95 Nasal Cannula 1.0 03/19/17 23:55 Nasal Cannula 1.0 03/19/17 19:45 36.9 99 17 113/68 (83) 98 Nasal Cannula 2.0 03/19/17 18:45 37.6 97 17 98/51 (67) 99 Nasal Cannula 2.0 03/19/17 17:45 37.1 99 18 134/73 (93) 97 Nasal Cannula 2.0 03/19/17 17:15 36.9 101 16 126/57 (80) 94 03/19/17 16:45 37.3 103 16 123/51 (75) 92 Nasal Cannula 2.0 03/19/17 16:45 Nasal Cannula 2.0 03/19/17 16:45 Nasal Cannula 2.0 03/19/17 16:30 36.4 99 16 116/74 98 Nasal Cannula 2 Physical Exam General Appearance: no apparent distress Respiratory/Chest: chest non-tender, lungs clear, normal breath sounds, no respiratory distress, no accessory muscle use Cardiovascular: regular rate, rhythm, no edema, no murmur Abdomen: normal bowel sounds, non tender, soft, + pertinent finding (Butler catheter ) Laboratory Results Last 24 Hours Test 03/19/17 17:00 03/19/17 20:27 03/20/17 07:14 03/20/17 10:05 Bedside Glucose 123 mg/dl 181 mg/dl White Blood Count 9.86 K/uL Red Blood Count 3.10 M/uL Hemoglobin 7.5 g/dL Hematocrit 25.1 % Mean Corpuscular Volume 81.0 fL Mean Corpuscular Hemoglobin 24.2 pg Mean Corpuscular Hemoglobin Concent 29.9 g/dl RDW Standard Deviation 53.5 fL RDW Coefficient of Variation 17.9 % Platelet Count 310 K/uL Mean Platelet Volume 9.3 fL Sodium Level 139 mmol/L Potassium Level 4.9 mmol/L Chloride Level 107 mmol/L Carbon Dioxide Level 28 mmol/L Anion Gap 4.0 mmol/L Blood Urea Nitrogen 11 mg/dl Creatinine 0.53 mg/dl Est Creatinine Clear Calc Drug Dose 71.4 ml/min Estimated GFR () 105.4 Estimated GFR (Non- 90.9 BUN/Creatinine Ratio 21.5 Random Glucose 188 mg/dl Calcium Level 8.7 mg/dl Magnesium Level 1.5 mg/dl Prothrombin Time 14.7 SECONDS Prothromb Time International Ratio 1.4 Test 03/20/17 13:21 Hemoglobin 9.6 g/dL Hematocrit 30.9 % Assessment and Plan This is a 76 year old female with a PMH of paroxysmal A. fib, heart failure secondary to valvular heart disease s/p TAVR, DM2, HTN, HLD, DESOUZA, osteoporosis presents secondary to mechanical fall and L hip fracture Osteoporotic L Hip Fracture 03/20 POD #1 continue pain control with Percocet PRN PT/OT as per ortho will need rehab on discharge 03/19 appreciate ortho input s/p repair POD #0 doing well post-operatively in some pain, given IV morphine activity level and DVT ppx as per ortho will monitor labs in AM Expected Acute Blood Loss Anemia on Chronic Anemia Hgb < 8 s/p one unit PRBC Hgb now up to 9.6 monitor Paroxysmal A. Fib currently rate is elevated slightly into the 100s due to pain continue b-michelle restart Coumadin as per ortho pain medications HTN BP controlled, continue amlodipine, lisinopril, and carvedilol DM hgb a1c 7.2 11/2016 hold oral agents and utilize SSI while hospitalized CHRONIC CHF DUE TO VALVULAR DISEASE examines to be euvolemic not on routine diuretics ANXIETY, DEMENTIA continue home meds RECENT RIGHT HUMERUS FRACTURE s/p right shoulder arthroplasty 03/07 DVT ppx as per ortho FULL CODE
[2017-03-20] MEDS: DOCUSATE SODIUM/SENNA 50/8.6MG TAB PO SCH (22:03)
[2017-03-20] MEDS: AMITRIPTYLINE HCL 10 MG TAB PO SCH (22:03)
[2017-03-21] MEDS: OXYCODONE/ACETAMINOPHEN 5-325 TAB PO PRN ×3 (01:13→15:33)
[2017-03-21] MEDS: POLYETHYLENE (MIRALAX) 17 GM PACK PO SCH ×4 (06:22→23:47)
[2017-03-21] MEDS: LACTATED RINGER'S 1000ML 1,000 ML IV SCH ×2 (07:03→18:28)
--- NOTE | 2017-03-21 07:25 | Orthopedic Progress Note ---
Orthopedic Progress Note Date of Service Mar 21, 2017. Subjective Post OP Day: 2 Additional Notes: Pt resting comfortably. Objective calves soft nontender, incision C/D/I Date Time Temp Pulse Resp B/P (MAP) Pulse Ox O2 Delivery O2 Flow Rate FiO2 03/20/17 23:50 Nasal Cannula 1.0 03/20/17 23:07 36.9 81 16 128/74 (92) 95 Nasal Cannula 1.0 03/20/17 15:30 Nasal Cannula 1.0 03/20/17 15:17 37.4 90 16 146/61 (89) 97 Nasal Cannula 1.0 03/20/17 11:25 37.0 95 120/71 98 03/20/17 10:00 37.0 91 127/72 98 03/20/17 09:31 36.9 90 119/65 98 03/20/17 09:00 36.7 97 18 125/66 03/20/17 08:46 36.9 85 20 136/70 03/20/17 08:30 36.9 82 20 125/68 03/20/17 07:37 94 Nasal Cannula 1.0 Laboratory Results 24 Hours: Test 03/20/17 10:05 03/20/17 13:21 Prothromb Time International Ratio 1.4 Prothrombin Time 14.7 SECONDS Hematocrit 30.9 % Hemoglobin 9.6 g/dL Assessment & Plan Assessment: POD #2 s/p Open Reduction Internal Fixation, Left Hip Troch Nail POD #14 s/p reverse TSA Right shoulder Past Medical History including: paroxysmal A. fib, heart failure secondary to valvular heart disease s/p TAVR, DM2, HTN, HLD, DESOUZA, osteoporosis (1) Hip fracture, left Discharge Planning Discharge Planning: uncertain
[2017-03-21 07:30] VITALS: BP 97/60; PULSE 69; TEMP 36.9; O2SAT 96
[2017-03-21 08:09] LABS: BUN/CREATININE RATIO 20.8 (10-20); CREATININE 0.51 mg/dl (0.60-1.20); MAGNESIUM 1.4 mg/dl (1.8-2.4); POTASSIUM 4.6 mmol/L (3.5-5.1)
[2017-03-21] MEDS: CITALOPRAM 20 MG TAB PO SCH (08:26)
[2017-03-21] MEDS: ATORVASTATIN 40 MG TAB PO SCH (08:26)
[2017-03-21] MEDS: CALCIUM 600MG + VIT D 400 IU TAB PO SCH ×2 (08:26→21:27)
[2017-03-21] MEDS: LISINOPRIL 20 MG TAB PO SCH (08:26)
[2017-03-21] MEDS: AMLODIPINE BESYLATE 5 MG TAB PO SCH (08:26)
[2017-03-21] MEDS: CHOLECALCIFEROL 1000 INTER.UNIT TAB PO SCH (08:26)
[2017-03-21] MEDS: CYANOCOBALAMIN 500 MCG TAB (VIT B-12) PO SCH (08:26)
[2017-03-21] MEDS: DOCUSATE SODIUM 100 MG CAP PO SCH ×2 (08:27→21:27)
[2017-03-21] MEDS: DONEPEZIL HCL 10 MG TAB PO SCH (08:27)
[2017-03-21] MEDS: CARVEDILOL 3.125 MG TAB PO SCH ×2 (08:27→18:17)
[2017-03-21] MEDS: MEMANTINE HCL 28 MG PO SCH (08:27)
[2017-03-21] MEDS: INSULIN ASPART 100 UNITS/ML 3 ML PEN SC SCH ×4 (09:29→21:30)
[2017-03-21] MEDS: MoRPHine SULFATE 2 MG/ML CARP IV PRN ×2 (10:36→13:54)
[2017-03-21] MEDS: MAGNESIUM SULFATE 1GM / D5W 1 GM in PREMIXED IN D5W 100 ML IV SCH ×2 (11:22→13:28)
[2017-03-21 13:50] VITALS: BP 116/54; PULSE 69; O2SAT 96
[2017-03-21 13:55] LABS: INR 1.5 (0.9-1.1); PROTHROMBIN TIME (PATIENT) 16.7 SECONDS (9.0-12.0)
[2017-03-21] MEDS ORDERED: NURSING VERBAL MED ORDER ONE (14:15)
[2017-03-21 15:29] VITALS: BP 121/63; PULSE 79; TEMP 36.9; O2SAT 97
[2017-03-21] MEDS ORDERED: WARFARIN SOD 3 MG TAB PO SCH (16:00)
--- NOTE | 2017-03-21 20:27 | Progress Note ---
Subjective Date of Service: Mar 21, 2017. Subjective Pt evaluation today including: conversation w/ patient, physical exam, lab review, review of studies, review of inpatient medication list Saw/examined the patient in room 362 She is c/o headache today No visual changes L hip is doing well No fevers/chills Problem List Medical Problems: (1) Fracture of humeral head, right, closed Status: Acute (2) Hypoxia Status: Acute (3) Mediastinal lymphadenopathy Status: Acute (4) Thyroid mass Status: Acute Review of Systems Constitutional: No fever, No chills Eyes: + problem reported (+posterior headache), No worsening of vision, No eye pain Respiratory: No cough, No sputum, No shortness of breath Cardiac: No chest pain Abdomen: No pain, No nausea, No vomiting, No diarrhea Medications Current Inpatient Medications Medications (Trade) Dose Ordered Sig/Ubaldo Route Start Time Stop Time Status Last Admin Dose Admin Naloxone HCl (Narcan Inj) 0.1 mg PRN PRN IV 03/18/17 10:15 04/17/17 10:14 Senna/Docusate Sodium (Senokot S Tab) 2 tab HS PO 03/18/17 21:00 04/17/17 20:59 03/20/17 22:03 2 TAB Polyethylene (Miralax Powder Packet) 17 gm DAILY PRN PO 03/18/17 10:15 04/17/17 10:14 Bisacodyl (Dulcolax Supp) 10 mg DAILY PRN ND 03/18/17 10:15 04/17/17 10:14 Sodium Biphosphate/ Sodium Phosphate (Fleet Enema) 132 ml PRN PRN ND 03/18/17 10:15 Amitriptyline HCl (Elavil Tab) 10 mg HS PO 03/18/17 21:00 04/17/17 20:59 03/20/17 22:03 10 MG Amlodipine Besylate (Norvasc Tab) 10 mg DAILY PO 03/19/17 09:00 04/18/17 08:59 03/21/17 08:26 10 MG Atorvastatin Calcium (Lipitor Tab) 40 mg DAILY PO 03/19/17 09:00 04/18/17 08:59 03/21/17 08:26 40 MG Calcium/Vitamin D (Caltrate Plus Tab) 1 tab BID PO 03/18/17 21:00 04/17/17 20:59 03/21/17 08:26 1 TAB Carvedilol (Coreg Tab) 3.125 mg BIDM PO 03/18/17 17:45 04/17/17 17:59 03/21/17 18:17 3.125 MG Citalopram Hydrobromide (celeXA TAB) 20 mg DAILY PO 03/19/17 09:00 04/18/17 08:59 03/21/17 08:26 20 MG Donepezil HCl (Aricept Tab) 10 mg DAILY PO 03/19/17 09:00 04/18/17 08:59 03/21/17 08:27 10 MG Lisinopril (Zestril Tab) 20 mg DAILY PO 03/19/17 09:00 04/18/17 08:59 03/20/17 08:04 20 MG Glucose (Glucose 40% Gel) 15-30 GRAMS 15 GRAMS... UD PRN PO 03/18/17 10:30 04/17/17 10:29 Glucose (Glucose Chew Tab) 4-8 Tablets 4 Tabl... UD PRN PO 03/18/17 10:30 04/17/17 10:29 Dextrose (Dextrose 50% 50ML Syringe) 25-50ML OF 50% DW IV FOR... UD PRN IV 03/18/17 10:30 04/17/17 10:29 Glucagon (Glucagon Inj) 1 mg UD PRN SQ 03/18/17 10:30 04/17/17 10:29 Cholecalciferol (Vitamin D Tab) 2,000 inter.unit QAM PO 03/19/17 09:00 04/18/17 08:59 03/21/17 08:26 2,000 INTER.UNIT Morphine Sulfate (MoRPHine SULFATE INJ) 2 mg Q2H PRN IV 03/18/17 18:00 04/01/17 17:59 03/21/17 13:54 2 MG Cyanocobalamin (Vitamin B-12 Tab) 500 mcg DAILY PO 03/20/17 09:00 04/19/17 08:59 03/21/17 08:26 500 MCG Lactated Ringer's 1,000 ml @ 125 mls/hr Q8H IV 03/19/17 15:40 04/18/17 15:39 03/21/17 18:28 125 MLS/HR Ondansetron HCl (Zofran Inj) 4 mg Q6H PRN IV 03/19/17 15:45 04/18/17 15:44 03/20/17 13:48 4 MG Acetaminophen (Tylenol Tab) 650 mg Q6H PRN PO 03/19/17 15:45 04/18/17 15:44 Menthol (Nice Angelina) 1 angelina Q2H PRN PO 03/19/17 15:45 04/18/17 15:44 Polyethylene (Miralax Powder Packet) 17 gm Q6 PO 03/21/17 06:00 04/20/17 05:59 03/21/17 18:17 17 GM Magnesium Hydroxide (Milk Of Magnesia Susp) 30 ml DAILY PRN PO 03/19/17 15:45 04/18/17 15:44 Docusate Sodium (coLACE CAP) 100 mg BID PO 03/19/17 21:00 04/18/17 20:59 03/21/17 08:27 100 MG Oxycodone/ Acetaminophen (Percocet 5-325mg Tab) `1-2 TABS FOR PAIN `1 TAB... Q4H PRN PO 03/19/17 18:15 04/02/17 18:14 03/21/17 15:33 2 TAB Insulin Aspart (novoLOG ASPART) SLIDING SCALE If C... ACHS SC 03/19/17 21:15 04/18/17 21:14 03/21/17 09:29 1 UNITS Magnesium Oxide (Mag-Ox Tab) 400 mg QAM PO 03/22/17 09:00 04/21/17 08:59 Objective Vital Signs Date Time Temp Pulse Resp B/P (MAP) Pulse Ox O2 Delivery O2 Flow Rate FiO2 03/21/17 15:29 36.9 79 18 121/63 (82) 97 Nasal Cannula 1.0 03/21/17 13:50 69 116/54 (74) 96 Nasal Cannula 2.0 03/21/17 07:30 36.9 69 18 97/60 (72) 96 Nasal Cannula 2.0 03/21/17 07:30 Nasal Cannula 1.0 03/20/17 23:50 Nasal Cannula 1.0 03/20/17 23:07 36.9 81 16 128/74 (92) 95 Nasal Cannula 1.0 Physical Exam General Appearance: + mild distress (secondary to headache) Respiratory/Chest: chest non-tender, lungs clear, normal breath sounds, no respiratory distress, no accessory muscle use Cardiovascular: regular rate, rhythm Abdomen: + pertinent finding (+Butler) Laboratory Results Last 24 Hours Test 03/21/17 06:50 03/21/17 08:05 03/21/17 11:58 03/21/17 13:26 Sodium Level 138 mmol/L Potassium Level 4.6 mmol/L Chloride Level 103 mmol/L Carbon Dioxide Level 30 mmol/L Anion Gap 5.0 mmol/L Blood Urea Nitrogen 11 mg/dl Creatinine 0.51 mg/dl Est Creatinine Clear Calc Drug Dose 74.2 ml/min Estimated GFR () 106.7 Estimated GFR (Non- 92.1 BUN/Creatinine Ratio 20.8 Random Glucose 175 mg/dl Calcium Level 9.0 mg/dl Magnesium Level 1.4 mg/dl Bedside Glucose 151 mg/dl Prothrombin Time 16.7 SECONDS Prothromb Time International Ratio 1.5 Test 03/21/17 16:49 Bedside Glucose 157 mg/dl Assessment and Plan This is a 76 year old female with a PMH of paroxysmal A. fib, heart failure secondary to valvular heart disease s/p TAVR, DM2, HTN, HLD, DESOUZA, osteoporosis presents secondary to mechanical fall and L hip fracture Osteoporotic L Hip Fracture 03/21 patient is doing well, POD #2 continue PT/OT WBAT plan for d/c to [facility] in AM (03/21) 03/20 POD #1 continue pain control with Percocet PRN PT/OT as per ortho will need rehab on discharge 03/19 appreciate ortho input s/p repair POD #0 doing well post-operatively in some pain, given IV morphine activity level and DVT ppx as per ortho will monitor labs in AM Expected Acute Blood Loss Anemia on Chronic Anemia 03/21 Hgb stable after one unit PRBC, will monitor 03/20 Hgb < 8 s/p one unit PRBC Hgb now up to 9.6 monitor Paroxysmal A. Fib currently rate is elevated slightly into the 100s due to pain continue b-michelle restart Coumadin as per ortho pain medications HTN BP controlled, continue amlodipine, lisinopril, and carvedilol DM hgb a1c 7.2 11/2016 hold oral agents and utilize SSI while hospitalized CHRONIC CHF DUE TO VALVULAR DISEASE examines to be euvolemic not on routine diuretics ANXIETY, DEMENTIA continue home meds RECENT RIGHT HUMERUS FRACTURE s/p right shoulder arthroplasty 03/07 DVT ppx as per ortho FULL CODE
[2017-03-21] MEDS: AMITRIPTYLINE HCL 10 MG TAB PO SCH (21:27)
[2017-03-21] MEDS: DOCUSATE SODIUM/SENNA 50/8.6MG TAB PO SCH (21:27)
[2017-03-21 22:50] VITALS: BP 121/65; PULSE 86; TEMP 37.2; O2SAT 96
[2017-03-22] MEDS: OXYCODONE/ACETAMINOPHEN 5-325 TAB PO PRN ×3 (00:40→18:01)
[2017-03-22] MEDS: LACTATED RINGER'S 1000ML 1,000 ML IV SCH ×3 (02:29→18:01)
[2017-03-22] MEDS: POLYETHYLENE (MIRALAX) 17 GM PACK PO SCH ×3 (05:32→18:01)
[2017-03-22 07:02] VITALS: BP 125/75; PULSE 85; TEMP 36.9; O2SAT 96
--- NOTE | 2017-03-22 07:27 | Orthopedic Progress Note ---
Orthopedic Progress Note Date of Service Mar 22, 2017. Subjective Post OP Day: 3 Reports: pain controlled w PO medications, Denies: complaints, chest pain, SOB, nausea / vomiting, light headedness, calf pain Objective calves soft nontender, N/V intact, capillary refill less than 2 sec., incision C /D/I, A&O x3, toes mobile Date Time Temp Pulse Resp B/P (MAP) Pulse Ox O2 Delivery O2 Flow Rate FiO2 03/22/17 07:02 36.9 85 20 125/75 (92) 96 Room Air 03/21/17 22:50 37.2 86 16 121/65 (83) 96 Nasal Cannula 1.0 03/21/17 19:30 Nasal Cannula 1.0 03/21/17 15:29 36.9 79 18 121/63 (82) 97 Nasal Cannula 1.0 03/21/17 13:50 69 116/54 (74) 96 Nasal Cannula 2.0 03/21/17 07:30 36.9 69 18 97/60 (72) 96 Nasal Cannula 2.0 03/21/17 07:30 Nasal Cannula 1.0 Laboratory Results 24 Hours: Test 03/21/17 13:26 03/22/17 04:44 Prothromb Time International Ratio 1.5 Prothrombin Time 16.7 SECONDS Assessment & Plan Assessment: POD #3 s/p Open Reduction Internal Fixation, Left Hip Troch Nail POD #15 s/p reverse TSA Right shoulder Past Medical History including: paroxysmal A. fib, heart failure secondary to valvular heart disease s/p TAVR, DM2, HTN, HLD, DESOUZA, osteoporosis Plan: AT THIS TIME WE WILL SIGN OFF TO MEDICINE SERVICE. IF THERE ARE ANY QUESTIONS, PLEASE RECONSULT. CONSULT RECOMMENDATIONS ARE IN FOR DISCHARGE. (1) Hip fracture, left Discharge Planning Discharge Planning: uncertain
[2017-03-22 07:57] LABS: HEMATOCRIT 28.2 % (37-47); MEAN CELL VOLUME 82.5 fL (80-100); MEAN CORPUSCULAR HEMOGLOBIN 24.9 pg (25-34); MEAN CORPUSCULAR HGB CONC 30.1 g/dl (32-36); MEAN PLATELET VOLUME 9.2 fL (7.4-10.4); PLATELET COUNT 283 K/uL (130-400); RED BLOOD COUNT 3.42 M/uL (4.2-5.4); WHITE BLOOD COUNT 6.18 K/uL (4.8-10.8)
[2017-03-22 08:11] LABS: INR 1.8 (0.9-1.1); PROTHROMBIN TIME (PATIENT) 19.4 SECONDS (9.0-12.0)
[2017-03-22 08:28] LABS: BUN/CREATININE RATIO 22.9 (10-20); CALCIUM 8.8 mg/dl (8.5-10.1); CREATININE 0.49 mg/dl (0.60-1.20); MAGNESIUM 1.5 mg/dl (1.8-2.4); POTASSIUM 4.5 mmol/L (3.5-5.1)
[2017-03-22] MEDS ORDERED: MAGNESIUM OXIDE 400 MG TAB PO SCH (09:00)
[2017-03-22] MEDS: INSULIN ASPART 100 UNITS/ML 3 ML PEN SC SCH ×4 (09:43→20:51)
[2017-03-22] MEDS: CITALOPRAM 20 MG TAB PO SCH (09:44)
[2017-03-22] MEDS: AMLODIPINE BESYLATE 5 MG TAB PO SCH (09:44)
[2017-03-22] MEDS: ATORVASTATIN 40 MG TAB PO SCH (09:44)
[2017-03-22] MEDS: DONEPEZIL HCL 10 MG TAB PO SCH (09:45)
[2017-03-22] MEDS: DOCUSATE SODIUM 100 MG CAP PO SCH ×2 (09:45→20:49)
[2017-03-22] MEDS: CARVEDILOL 3.125 MG TAB PO SCH ×2 (09:45→18:01)
[2017-03-22] MEDS: LISINOPRIL 20 MG TAB PO SCH (09:45)
[2017-03-22] MEDS: CYANOCOBALAMIN 500 MCG TAB (VIT B-12) PO SCH (09:45)
[2017-03-22] MEDS: CHOLECALCIFEROL 1000 INTER.UNIT TAB PO SCH (09:46)
[2017-03-22] MEDS: MEMANTINE HCL 28 MG PO SCH (09:46)
[2017-03-22] MEDS: CALCIUM 600MG + VIT D 400 IU TAB PO SCH ×2 (09:46→20:51)
[2017-03-22 15:37] VITALS: BP 109/65; PULSE 78; TEMP 36.4; O2SAT 90
[2017-03-22] MEDS ORDERED: WARFARIN SOD 2 MG TAB PO SCH (16:00)
--- NOTE | 2017-03-22 16:15 | Progress Note ---
Subjective Date of Service: Mar 22, 2017. Subjective Pt evaluation today including: conversation w/ patient, physical exam, lab review, review of studies, review of inpatient medication list Saw/examined the patient in room 362 she is doing well, seated in a chair, no hip pain, no headaches, no shoulder pain good PO intake no BM as of yet Problem List Medical Problems: (1) Fracture of humeral head, right, closed Status: Acute (2) Hypoxia Status: Acute (3) Mediastinal lymphadenopathy Status: Acute (4) Thyroid mass Status: Acute Review of Systems Constitutional: No fever, No chills Respiratory: No shortness of breath Cardiac: No chest pain Abdomen: No pain, No nausea, No vomiting, No diarrhea Musculoskeletal: + joint pain (controlled with medications) Medications Current Inpatient Medications Medications (Trade) Dose Ordered Sig/Ubaldo Route Start Time Stop Time Status Last Admin Dose Admin Naloxone HCl (Narcan Inj) 0.1 mg PRN PRN IV 03/18/17 10:15 04/17/17 10:14 Senna/Docusate Sodium (Senokot S Tab) 2 tab HS PO 03/18/17 21:00 04/17/17 20:59 03/21/17 21:27 2 TAB Polyethylene (Miralax Powder Packet) 17 gm DAILY PRN PO 03/18/17 10:15 04/17/17 10:14 Bisacodyl (Dulcolax Supp) 10 mg DAILY PRN CO 03/18/17 10:15 04/17/17 10:14 Sodium Biphosphate/ Sodium Phosphate (Fleet Enema) 132 ml PRN PRN CO 03/18/17 10:15 Amitriptyline HCl (Elavil Tab) 10 mg HS PO 03/18/17 21:00 04/17/17 20:59 03/21/17 21:27 10 MG Amlodipine Besylate (Norvasc Tab) 10 mg DAILY PO 03/19/17 09:00 04/18/17 08:59 03/22/17 09:44 10 MG Atorvastatin Calcium (Lipitor Tab) 40 mg DAILY PO 03/19/17 09:00 04/18/17 08:59 03/22/17 09:44 40 MG Calcium/Vitamin D (Caltrate Plus Tab) 1 tab BID PO 03/18/17 21:00 04/17/17 20:59 03/22/17 09:46 1 TAB Carvedilol (Coreg Tab) 3.125 mg BIDM PO 03/18/17 17:45 04/17/17 17:59 03/22/17 09:45 3.125 MG Citalopram Hydrobromide (celeXA TAB) 20 mg DAILY PO 03/19/17 09:00 04/18/17 08:59 03/22/17 09:44 20 MG Donepezil HCl (Aricept Tab) 10 mg DAILY PO 03/19/17 09:00 04/18/17 08:59 03/22/17 09:45 10 MG Lisinopril (Zestril Tab) 20 mg DAILY PO 03/19/17 09:00 04/18/17 08:59 03/22/17 09:45 20 MG Glucose (Glucose 40% Gel) 15-30 GRAMS 15 GRAMS... UD PRN PO 03/18/17 10:30 04/17/17 10:29 Glucose (Glucose Chew Tab) 4-8 Tablets 4 Tabl... UD PRN PO 03/18/17 10:30 04/17/17 10:29 Dextrose (Dextrose 50% 50ML Syringe) 25-50ML OF 50% DW IV FOR... UD PRN IV 03/18/17 10:30 04/17/17 10:29 Glucagon (Glucagon Inj) 1 mg UD PRN SQ 03/18/17 10:30 04/17/17 10:29 Cholecalciferol (Vitamin D Tab) 2,000 inter.unit QAM PO 03/19/17 09:00 04/18/17 08:59 03/22/17 09:46 2,000 INTER.UNIT Morphine Sulfate (MoRPHine SULFATE INJ) 2 mg Q2H PRN IV 03/18/17 18:00 04/01/17 17:59 03/21/17 13:54 2 MG Cyanocobalamin (Vitamin B-12 Tab) 500 mcg DAILY PO 03/20/17 09:00 04/19/17 08:59 03/22/17 09:45 500 MCG Lactated Ringer's 1,000 ml @ 125 mls/hr Q8H IV 03/19/17 15:40 04/18/17 15:39 03/22/17 09:47 125 MLS/HR Ondansetron HCl (Zofran Inj) 4 mg Q6H PRN IV 03/19/17 15:45 04/18/17 15:44 03/20/17 13:48 4 MG Acetaminophen (Tylenol Tab) 650 mg Q6H PRN PO 03/19/17 15:45 04/18/17 15:44 Menthol (Nice Angelina) 1 angelina Q2H PRN PO 03/19/17 15:45 04/18/17 15:44 Polyethylene (Miralax Powder Packet) 17 gm Q6 PO 03/21/17 06:00 04/20/17 05:59 03/22/17 13:45 17 GM Magnesium Hydroxide (Milk Of Magnesia Susp) 30 ml DAILY PRN PO 03/19/17 15:45 04/18/17 15:44 Docusate Sodium (coLACE CAP) 100 mg BID PO 03/19/17 21:00 04/18/17 20:59 03/22/17 09:45 100 MG Oxycodone/ Acetaminophen (Percocet 5-325mg Tab) `1-2 TABS FOR PAIN `1 TAB... Q4H PRN PO 03/19/17 18:15 04/02/17 18:14 03/22/17 09:50 2 TAB Insulin Aspart (novoLOG ASPART) SLIDING SCALE If C... ACHS SC 03/19/17 21:15 04/18/17 21:14 03/22/17 13:44 1 UNITS Magnesium Oxide (Mag-Ox Tab) 400 mg QAM PO 03/22/17 09:00 04/21/17 08:59 03/22/17 09:46 400 MG Objective Vital Signs Date Time Temp Pulse Resp B/P (MAP) Pulse Ox O2 Delivery O2 Flow Rate FiO2 03/22/17 15:37 36.4 78 18 109/65 (80) 90 Room Air 03/22/17 09:25 Room Air 03/22/17 07:02 36.9 85 20 125/75 (92) 96 Room Air 03/21/17 22:50 37.2 86 16 121/65 (83) 96 Nasal Cannula 1.0 03/21/17 19:30 Nasal Cannula 1.0 Physical Exam General Appearance: no apparent distress Respiratory/Chest: chest non-tender, lungs clear, normal breath sounds, no respiratory distress, no accessory muscle use Cardiovascular: regular rate, rhythm, no edema, no murmur Abdomen: normal bowel sounds, non tender, soft Neurologic/Psychiatric: no motor/sensory deficits, alert, normal mood/affect Laboratory Results Last 24 Hours Test 03/21/17 16:49 03/21/17 20:50 03/22/17 07:26 03/22/17 12:05 Bedside Glucose 157 mg/dl 168 mg/dl 117 mg/dl White Blood Count 6.18 K/uL Red Blood Count 3.42 M/uL Hemoglobin 8.5 g/dL Hematocrit 28.2 % Mean Corpuscular Volume 82.5 fL Mean Corpuscular Hemoglobin 24.9 pg Mean Corpuscular Hemoglobin Concent 30.1 g/dl RDW Standard Deviation 54.2 fL RDW Coefficient of Variation 17.8 % Platelet Count 283 K/uL Mean Platelet Volume 9.2 fL Prothrombin Time 19.4 SECONDS Prothromb Time International Ratio 1.8 Sodium Level 138 mmol/L Potassium Level 4.5 mmol/L Chloride Level 102 mmol/L Carbon Dioxide Level 32 mmol/L Anion Gap 4.0 mmol/L Blood Urea Nitrogen 11 mg/dl Creatinine 0.49 mg/dl Est Creatinine Clear Calc Drug Dose 77.3 ml/min Estimated GFR () 108.2 Estimated GFR (Non- 93.3 BUN/Creatinine Ratio 22.9 Random Glucose 98 mg/dl Calcium Level 8.8 mg/dl Magnesium Level 1.5 mg/dl Assessment and Plan This is a 76 year old female with a PMH of paroxysmal A. fib, heart failure secondary to valvular heart disease s/p TAVR, DM2, HTN, HLD, DESOUZA, osteoporosis presents secondary to mechanical fall and L hip fracture Osteoporotic L Hip Fracture 03/22 plan to d/c to [facility] today, patient did not want to go to [facility] doing well, POD #3 pain controlled PT/OT WBAT 03/21 patient is doing well, POD #2 continue PT/OT WBAT plan for d/c to [facility] in AM (03/21) 03/20 POD #1 continue pain control with Percocet PRN PT/OT as per ortho will need rehab on discharge 03/19 appreciate ortho input s/p repair POD #0 doing well post-operatively in some pain, given IV morphine activity level and DVT ppx as per ortho will monitor labs in AM Expected Acute Blood Loss Anemia on Chronic Anemia 03/21 Hgb stable after one unit PRBC, will monitor 03/20 Hgb < 8 s/p one unit PRBC Hgb now up to 9.6 monitor Paroxysmal A. Fib currently rate is elevated slightly into the 100s due to pain continue b-michelle restart Coumadin as per ortho pain medications HTN BP controlled, continue amlodipine, lisinopril, and carvedilol DM hgb a1c 7.2 11/2016 hold oral agents and utilize SSI while hospitalized CHRONIC CHF DUE TO VALVULAR DISEASE examines to be euvolemic not on routine diuretics ANXIETY, DEMENTIA continue home meds RECENT RIGHT HUMERUS FRACTURE s/p right shoulder arthroplasty 03/07 DVT ppx as per ortho FULL CODE
[2017-03-22] MEDS ORDERED: SENN8.6T7 PO (16:18)
[2017-03-22] MEDS ORDERED: CLC100 PO (16:18)
[2017-03-22] MEDS ORDERED: OXYC-57 PO (16:18)
--- NOTE | 2017-03-22 16:19 | Discharge Instructions ---
Discharge Instructions Date of Service Mar 22, 2017. Admission Reason for Admission: Hip Fracture, Left Discharge Discharge Diagnosis / Problem: L hip fracture Discharge Goals Goal(s): Decrease discomfort, Improve function, Diagnostic testing, Therapeutic intervention Activity Recommendations Activity Limitations: resume your previous activity . Instructions / Follow-Up Instructions / Follow-Up Please follow-up with your primary care doctor after rehab stay Current Hospital Diet Patient's current hospital diet: Diabetes Type 2 Diet, Low Sodium Diet (2gm Na) , AHA Diet (Heart Healthy) Discharge Diet Recommended Diet: AHA Diet (Heart Healthy), Diabetes Type 2 Diet Procedures Procedures Performed: Open Reduction Internal Fixation, Left Hip Troch Nail Pending Studies Studies pending at discharge: no Medical Emergencies . Who to Call and When: Medical Emergencies: If at any time you feel your situation is an emergency, please call 911 immediately. . Non-Emergent Contact Non-Emergency issues call your: Primary Care Provider . . "Provider Documentation" section prepared by Colleen Steve. . Base Filler Operator Recommendations Base Filler Operator Recommendations: [facility] DISCHARGE INSTRUCTIONS: HIP FRACTURE SELF CARE INSTRUCTIONS: A. You are to ambulate with a walker or crutches for approximately 6 weeks. B. You are WEIGHT BEARING TOLERATED on your operative lower extremity for at least 6 weeks. C. Wear low heeled shoes with non-slip soles D. Be sure that your floors are free of things that could trip you throw rugs, electrical cords, and small objects. Avoid wet and waxed floors, especially with crutches/walker/cane. E. Try to walk several times a day with rest periods between. F. You may shower 48 hours after surgery and get the incision area wet, but DO NOT soak or submerge incision area in water. (No baths, swimming pools, hot tubs ) G. You may have a large, band-aid like dressing over your incision (Aquacel). This will remain on your incision for 7 days, and then can be removed. You CAN shower with this on. If incision is leaking through the dressing, please call the office . H. Do NOT apply soap or any ointment/lotions directly over incision. I. You may use ice as needed to operative site. SPECIAL CARE INSTRUCTIONS: VERY IMPORTANT TO READ AND REVIEW A. You may be at risk for phlebitis or blood clots. a. Wear surgical stockings (KEVIN hose) for 2 weeks after surgery to improve circulation and reduce swelling. b. You are on Coumadin. Take as directed by your Doctor. This is your blood thinner. c. If you are on Coumadin- you will have daily/weekly blood work to monitor your levels. This will be done by either your family physician/ automotive mechanic (if you are on Coumadin chronically) versus your orthopedic surgeon. Expect a phone call the day of or the day after your blood work is drawn to adjust your dose accordingly. B. There are a few signs you need to watch for after you are home. Call [facility] at [phone] if you experience any of the following: a. If you have a temperature of 101 degrees or higher. b. Sudden increase in pain in your hip not relieved by rest or pain medication. c. Any fluid or drainage from the incision; redness of the incision. d. Shortness of breath or chest pain. C. Call your physician if: a. Temperature is greater than 101 degrees (F). b. Pain is not relieved by prescribed pain medications. c. Increase drainage or redness from incision. d. Unanswered questions or concerns. D. Pain Medication: a. You will be prescribed pain medication upon discharge that should last till your first post-operative appointment. b. If you experience nausea and/or skin rash, discontinue this medication and contact our office for an alternative medication. c. Caution- narcotic pain medication can cause constipation. FOLLOW UP VISIT: Please call [facility] at [phone] to schedule a follow up appointment 10-14 days from the date of your surgery date. VTE Core Measure Inpt VTE Proph given/why not?: Warfarin (Coumadin)
--- NOTE | 2017-03-22 16:25 | Discharge Summary ---
Discharge Summary Date of Service Mar 22, 2017. Discharge Summary Admission Date: Mar 18, 2017 at 10:36 Discharge Date: Mar 22, 2017 Discharge Disposition: correction facility Principal Diagnosis: L hip Fracture/ mechanical Fall Medication Reconciliation New Medications: Docusate Sodium (Docusate Sodium) 100 Mg Cap 100 MG PO BID for 10 Days, #20 CAP Oxycodone/Acetaminophen 5MG/325MG (Percocet 5MG/325MG) Tab 1 TAB PO Q4H PRN for Pain for 3 Days, #18 TAB PAIN Sennosides-Docusate Sodium (Senokot S) 1 Tab Tab 2 TAB PO HS for 10 Days, #10 TAB Continued Medications: Alendronate Sodium (Fosamax) 70 Mg Tab 1 TAB PO WK for 28 Days, #4 TAB 11 Refills Amitriptyline Hcl (Elavil) 10 Mg Tab 10 MG PO HS, 0 Refills Amlodipine Besylate (Norvasc) 5 Mg Tab 10 MG PO DAILY 2 TABLET DOSE Aspirin (Aspirin Ec) 81 Mg Tab 81 MG PO DAILY Atorvastatin (Lipitor) 40 Mg Tab 40 MG PO DAILY, TAB Calcium/Vitamin D (Os-Wei 500 Plus D) Tab 1 TAB PO BID, TAB Carvedilol (Coreg) 3.125 Mg Tab 3.125 MG PO BIDM, TAB Citalopram Hydrobromide (Celexa) 20 Mg Tab 20 MG PO DAILY, TAB Donepezil Hydrochloride (Aricept) 10 Mg Tab 10 MG PO DAILY, TAB TAKE WITH LARGEST MEAL OF THE DAY Lisinopril (Zestril) 20 Mg Tab 20 MG PO DAILY Memantine Hcl (Namenda Xr) 28 Mg Cap 28 MG PO DAILY Metformin Hcl (Glucophage) 500 Mg Tab 500 MG PO BIDM, TAB Tramadol (Ultram) 50 Mg Tab 50 MG PO Q6H PRN for Pain, TAB Warfarin Sod (Coumadin) 2.5 Mg Tab 5 MG PO 3XWK Tu, Th, Sat Warfarin Sod (Coumadin) 2.5 Mg Tab 2.5 MG PO 4XWK Mon, Wed, Fri, Sun Admission Information HPI (per Admitting provider): 76 year old female who presents to the ER after a fall and developing left hip pain. Patient was recently admitted to [facility] 03/04 - 03/08 after sustaining a mechanical fall and fracturing her right humerus. Patient underwent a right total shoulder arthroplasty on 03/07. Patient reports she has been feeling well since being home. Early this morning, her daughter walked her to the bathroom and when she turned around to leave, the patient fell to the ground. Patient reports she remembers falling however is unsure how she fell. Thinks her legs just gave out from underneath of her. She reports she hit the back of her head and had immediate left hip pain following the fall. She denies associated lightheadedness, dizziness, chest pain, or palpitations. Patient was incontinent of urine however no seizure like activity or postictal state noted. Family was able to help the patient off of the ground however she was unable to bear weight on her left leg. EMS was then called. She denies any recent illnesses, fever, or chills. No abdominal pain, nausea, vomiting, or diarrhea. She denies urinary symptoms. No worsening shortness of breath, weight gain, lower extremity edema, or orthopnea. In the ER, patient is found to have an acute intertrochanteric left hip fracture. EKG does not show any acute ST changes. K+ and Mg+ are mildly low. Hgb is at baseline at 8.8. INR is 7.3. Vitals are stable. Patient was given Vitamin K 5mg PO and IV Morphine. Physical Exam (per Admitting): General Appearance: no apparent distress Head: normocephalic Eyes: normal inspection ENT: hearing grossly normal Neck: supple, no JVD Respiratory/Chest: lungs clear, normal breath sounds, no respiratory distress Cardiovascular: no edema, + irregularly irregular (rate controlled) Abdomen/GI: normal bowel sounds, non tender, soft Extremities/Musculoskelatal: + pertinent finding (LLE shortened and externally rotated, pain with palpation over left hip; jeanette intact to right upper arm, no surrounding erythema or drainage) Neurologic/Psych: no motor/sensory deficits, alert, normal mood/affect, oriented x 3 Skin: normal color, warm/dry Hospital Course This is a 76 year old female with a PMH of paroxysmal A. fib, heart failure secondary to valvular heart disease s/p TAVR, DM2, HTN, HLD, DESOUZA, osteoporosis presents secondary to mechanical fall and L hip fracture Osteoporotic L Hip Fracture 03/22 plan to d/c to [facility] today, patient did not want to go to [facility] doing well, POD #3 pain controlled PT/OT WBAT 03/21 patient is doing well, POD #2 continue PT/OT WBAT plan for d/c to [facility] in AM (03/21) 03/20 POD #1 continue pain control with Percocet PRN PT/OT as per ortho will need rehab on discharge 03/19 appreciate ortho input s/p repair POD #0 doing well post-operatively in some pain, given IV morphine activity level and DVT ppx as per ortho will monitor labs in AM Expected Acute Blood Loss Anemia on Chronic Anemia 03/21 Hgb stable after one unit PRBC, will monitor 03/20 Hgb < 8 s/p one unit PRBC Hgb now up to 9.6 monitor Paroxysmal A. Fib currently rate is elevated slightly into the 100s due to pain continue b-michelle restart Coumadin as per ortho pain medications HTN BP controlled, continue amlodipine, lisinopril, and carvedilol DM hgb a1c 7.2 11/2016 hold oral agents and utilize SSI while hospitalized CHRONIC CHF DUE TO VALVULAR DISEASE examines to be euvolemic not on routine diuretics ANXIETY, DEMENTIA continue home meds RECENT RIGHT HUMERUS FRACTURE s/p right shoulder arthroplasty 03/07 DVT ppx as per ortho FULL CODE Total time spent on discharge = 40 minutes This includes examination of the patient, discharge planning, medication reconciliation, and communication with other providers. Discharge Instructions Please follow-up with your primary care doctor after rehab stay
[2017-03-22 17:56] VITALS: BP 122/71; PULSE 87
[2017-03-22 19:35] VITALS: BP 122/71; PULSE 87; TEMP 36.4; O2SAT 90
[2017-03-22] MEDS: AMITRIPTYLINE HCL 10 MG TAB PO SCH (20:49)
[2017-03-22] MEDS: DOCUSATE SODIUM/SENNA 50/8.6MG TAB PO SCH (20:49)
== END 2017-03-22 22:05 | DRG 481 ==
LOC: EDBD 05:57 → C.EDB 06:00 → ENRESERV 10:29 → CANRESERV 10:29 → C.MSW 10:36 → EDBEDREQSVC 10:39 → ENRESERV 10:57
PROVIDERS: ADMIT Hospitalist; ATTEND Family Medicine
PROC: 0QS704Z Reposition Left Upper Femur with Internal Fixation Device, Open Approach (ICD-10-PCS; principal; 2017-03-19 14:15)
DX: M80.052A Age-related osteoporosis with current pathological fracture, left femur, initial encounter for fracture (principal); I38 Endocarditis, valve unspecified; S72.142A Displaced intertrochanteric fracture of left femur, initial encounter for closed fracture; E87.6 Hypokalemia; E83.42 Hypomagnesemia; D64.9 Anemia, unspecified; E11.9 Type 2 diabetes mellitus without complications; I11.0 Hypertensive heart disease with heart failure; I48.0 Paroxysmal atrial fibrillation; F41.9 Anxiety disorder, unspecified; G30.9 Alzheimer's disease, unspecified; F02.80 Dementia in other diseases classified elsewhere, unspecified severity, without behavioral disturbance, psychotic disturbance, mood disturbance, and anxiety; I50.9 Heart failure, unspecified; Z79.01 Long term (current) use of anticoagulants; Z79.82 Long term (current) use of aspirin; Z79.84 Long term (current) use of oral hypoglycemic drugs; Z79.899 Other long term (current) drug therapy; Z87.891 Personal history of nicotine dependence; Z96.611 Presence of right artificial shoulder joint; W18.30XA Fall on same level, unspecified, initial encounter; Y92.002 Bathroom of unspecified non-institutional (private) residence as the place of occurrence of the external cause

== ENCOUNTER → 2017-06-07 | Outpatient (CLI) | payer OTHER ==
[~2017-06-07] MED LIST changes: +ALEN70TA2 PO; -ASPEC81 PO; +ASPI81TA28 PO; +CALC500C70 PO; +CLC100 PO; -FSMD/70 PO; +OXYC-57 PO; +SENN8.6T7 PO; +TRAM-10 PO
[2017-06-07 12:43] LABS: INR 1.8 (0.9-1.1); PROTHROMBIN TIME (PATIENT) 19.8 SECONDS (9.0-12.0)
== END | disposition home or self-care (01) ==
LOC: C.LABSPEC 14:48
PROVIDERS: ATTEND Internal Medicine
DX: Z79.01 Long term (current) use of anticoagulants (principal); Z51.81 Encounter for therapeutic drug level monitoring